=== PATIENT | female | born 1935 | race Caucasian/White ===

== ENCOUNTER 2022-08-26 15:56 | Outpatient (REF) | payer MEDICARE, SELFPAY ==
[2022-08-26 18:18] LABS: Anion Gap 13 (12-20); Blood Urea Nitrogen 23 mg/dL (9-16); Calcium 9.4 mg/dL (8.4-10.2); Carbon Dioxide 24 mmol/L (22-29); Chloride 106 mmol/L (96-108); Estimated Glomerular Filt Rate > 60; Glucose Random 81 mg/dL (60-115); Potassium 3.9 mmol/L (3.3-5.1); Sodium 139 mmol/L (135-145)
[2022-08-26 18:49] LABS: Folate 13.8 ng/mL (> or = 4.0); T4 Thyroxine 7.2 ug/dL (4.5-12.0); Thyroid Stimulating Hormone 2.67 uIU/mL (0.32-4.0); Vitamin B12 376 pg/mL (200-900)
[2022-08-30 15:58] LABS: Vitamin D 25-OH, D2 <4 ng/mL; Vitamin D 25-OH, D3 43 ng/mL; Vitamin D 25-OH, Total 43 ng/mL (30-100)
== END 2022-08-26 15:57 | disposition home or self-care (01) ==
LOC: HO.LAB 15:56
PROVIDERS: PCP Internal Medicine; Visit Provider Psychiatry & Neurology Neurology
DX: G31.84 Mild cognitive impairment of uncertain or unknown etiology (principal); E56.9 Vitamin deficiency, unspecified
CPT/HCPCS: 36415; 80048; 82306; 82607; 82746; 84436; 84443

== ENCOUNTER 2024-06-23 10:49 | Outpatient (REF) | payer MEDICARE, SELFPAY ==
[2024-06-23 11:07] LABS: MANUAL DIFF FLAG NO
[2024-06-23 11:50] LABS: Basophils Percent Auto 0.7 % (0-2); Eosinophils Absolute Auto 0.1 X10*3/uL (0.0-0.4); Eosinophils Percent Auto 1.1 % (0-4); Hematocrit 38.2 % (37.0-47.0); Hemoglobin 12.9 g/dl (12.0-16.0); Imm Gran Abs Auto 0.02 X10*3/uL (0.00-0.03); Imm Gran Pct Auto 0.4 % (0.0-0.4); Lymphocytes Absolute Auto 1.1 X10*3/uL (1.2-4.9); Lymphocytes Percent Auto 19.8 % (20-40); Mean Corpuscular HGB Conc 33.8 g/dl (31.0-35.0); Mean Corpuscular Hemoglobin 31.7 pg (27.0-33.0); Mean Corpuscular Volume 93.9 fL (80.0-98.0); Mean Platelet Volume 10.5 fL (9.4-12.3); Monocytes Absolute Auto 0.6 X10*3/uL (0.1-1.2); Monocytes Percent Auto 10.3 % (2-11); Neutrophils Absolute Auto 3.7 x10*3/uL (2.0-8.3); Neutrophils Percent Auto 67.7 % (45-73); Platelet Count 150 X10*3/uL (160-400); Red Blood Count 4.07 X10*6/uL (4.20-5.50); Red Cell Distribution Width 13.2 % (11.0-16.0); White Blood Count 5.5 X10*3/uL (4.8-10.8)
[2024-06-23 12:03] LABS: Appearance Urine Clear; Color Urine Yellow; Glucose Urine UA Negative (Negative); Leukocyte Esterase Urine Trace (Negative); Nitrite Urine Negative (Negative); UMIC TRIGGER UACC YES; Urine Blood Negative (Negative); Urine Ketones Negative (Negative); Urine Protein Trace mg/dL (Neg-Trace)
[2024-06-23 12:09] LABS: Bacteria Urine None Seen (None Seen); Hyaline Casts Urine 0-2 /LPF (0-2); RBC Urine 0-2 /HPF (0-2); Squamous Epithelial Cell Urine 0-2 /HPF (0-2); WBC Urine 0-5 /HPF (0-5)
--- OUTSIDE RECORDS SUMMARY | 2024-06-23 12:58 | XMS_ITS | Encounter Summary ---
Author Name [facility] [place] [facility] [place] Organization [facility] [place] Address [address] [place] [id number] Care Team Providers Care Mess Attendant Name Role Phone JIM DUTTA Primary Care Provider Unavailabl e Insurance Providers: All historical and current Section Date Range: From patient's date of to the date document was created. This section includes the names of all active insurance providers for the patient. Insurance Provider Type of Coverage Plan Name Start of Policy Coverage End of Policy Coverage Group Number Member ID Insurance Provider's Telephone Number Policy Quiros's Name Patient's Relationship to Policy Quiros [facility] PLAN MEDICARE () [facility] ([facility]) May 26[facility] 2014 [facility] [id number] Kamar CLAUDIO PATIENT [facility] ([facility]) MEDICARE ADVANTAGE [facility] ([facility]) May 26, 2018 [facility] [id number] [phone] Kamar CLAUDIO PATIENT Selected Encounter This section includes the information on record at [place] for the Encounter. Date/Time Encounter Type Encounter Description Reason Provider Source October 07, 2023 10:30 AM OFFICE O/P EST MOD 30 MIN PRIMARY CARE/MEDICINE ICD-10-CM I10 Essential (primary) hypertension JURGEN WIGGINS Encounter Template Text not used by VA Assessments - Encounter Diagnoses This section includes the primary and secondary diagnoses documented for the Encounter. Date/Time Primary/Secondary Diagnosis Diagnosis Name Provider Source October 07, 2023 11:20 AM PRIMARY Essential (primary) hypertension JURGEN WIGGINS October 07, 2023 11:20 AM SECONDARY Orthostatic hypotension JURGEN WIGGINS [facility] Plan of Treatment: Future Appointments (+ 6 months) and Future Tests (+/- 45 days) The Plan of Treatment section includes future care activities for the patient from all [place] treatmentfacilities. This section includes future appointments and future orders which are active, pending or scheduled. Future Appointments This section includes appointments that were scheduled to occur 6 months from the date of the Encounter, up to a maximum of 20 appointments. The data comes from all [place] treatment facilities. Appointment Date/Time Appointment Type Appointme nt Facility Name Mar 02, 2024 01:00 PM [facility] Mar 02, 2024 02:00 PM [facility] [place] [facility] Mar 02, 2024 02:45 PM [place]UL[place] - NONE [place] [facility] Apr 07, 2024 02:30 PM [facility]ICINE [facility] Lab Results: +/- 30 days of the encounter This section includes the Chemistry and Hematology Lab Results on record with [place] for the patient. Radiology Reports and Pathology Reports are provided separately, in subsequent sections. Lab Results This section contains the Chemistry/Hematology Results that were resulted 30 days before or 30 daysafter the date of the Encounter. Date/Time Source Result Type Result - Unit Interpretation Reference Range Comment October 07, 2023 10:09 AM [facility] HEMOGLOBIN A1C PANEL Specimen Type: BLOOD Comment: Values obtained from A1C measurements can vary. For atypical A1C assays, a reported value of 7.0 could actually be between 6.72 and 7.28 if measured by a reference method. A reported value of 9.0 could actually be between 8.73 and 9.27. Ref: http://www.ngs p.org/CAPdata. asp Ordering Provider: JURGEN WIGGINS Report Released Date/Time: September 25, 2023 08:53 AM Reporting Lab: [address] [address] Performing Lab: [address] [address] HEMOGLOBIN A1C 5.5 4.0-5.6 October 07, 2023 10:09 AM [facility] LIPID PANEL FASTING Specimen Type: SERUM No comment entered. Ordering Provider: JURGEN WIGGINS Report Released Date/Time: September 25, 2023 08:53 AM Reporting Lab[facility] [address] [facility] [address] Performing Lab: [place] [facility] [address] [facility] [address] CHOLESTEROL 206 mg/dL H TRIGLYCERIDE 71 mg/dL 0-150 LDL calculated 98 mg/dL 0-129 CHOL/HDL 2.2 HDL CHOLESTEROL 94 mg/dL H 40-60 October 07, 2023 10:09 AM [facility] TSH Specimen Type: SERUM No comment entered. Ordering Provider: JURGEN WIGGINS Report Released Date/Time: September 25, 2023 08:53 AM Reporting Lab: [facility] [address] [facility] [address] [address] TSH 3.85 u[IU]/mL 0.35-5.00 October 07, 2023 10:09 AM [facility] LIVER FUNCTION Specimen Type: SERUM No comment entered. Ordering Provider: JURGEN WIGGINS Report Released Date/Time: September 25, 2023 08:53 AM Reporting Lab: [facility] [address] [address] Performing Lab: [facility] [address] PROTEIN,TOTAL 7.0 g/dL 6.0-8.3 ALBUMIN 4.2 g/dL 3.5-5.0 ALKALINE PHOSPHATASE 95 U/L 40-150 AST 31 U/L 5-34 ALT 20 U/L BILIRUBIN, TOTAL 1.0 mg/dL 0.2-1.2 October 07, 2023 10:09 AM [facility] BASIC METABOLIC PANEL (fasting) Specime n Type: SERUM No comment entered. Ordering Provider: JURGEN WIGGINS Report Released Date/Time: September 25, 2023 08:53 AM Reporting Lab: [facility] [address] [address] Performing Lab: [facility] [address] [facility] [address] UREA NITROGEN 26 mg/dL H 7-25 GLUCOSE 88 mg/dL 65-100 SODIUM 140 mmol/L 135-145 POTASSIUM 4.1 mmol/L 3.5-5.0 CHLORIDE 105 mmol/L 100-110 CO2 23 meq/L 20-30 CREATININE, Serum 1.75 mg/dL H 0.50-1.40 eGFR(CKD-EPI 2020) 28 mL/min L >60 October 07, 2023 10:09 AM [facility] CBC AND DIFF (AUTO) Specimen Type: BLOOD No comment entered. Ordering Provider: JURGEN WIGGINS Report Released Date/Time: September 25, 2023 08:53 AM Reporting Lab: [address] [address] Performing Lab: [address] [address] WBC 5.84 10*3/uL 4.50-11.00 RBC 4.14 10*6/uL 3.93-5.16 HGB 12.9 g/dL 12-15.2 HCT 38.6 36.6-45.6 MCV 93.2 fL 82-99 MCHC 33.4 g/dL 30.8-35.1 PLT 162 10*3/uL 140-360 RDW-CV 13.5 12.0-16.0 [place], Abs 0.50 10*3/uL 0.30-1.10 MCH 31.2 pg 26.2-32.6 Neut % 64.2 43.7-75.8 Lymph % 25.2 14.0-42.3 [place] % 8.6 5.1-13.7 Eos % 1.0 0.4-6.8 Baso % 0.7 0.1-2.0 Neut, Abs 3.75 10*3/uL 2.20-7.60 Lymph, Abs 1.47 10*3/uL 1.00-3.20 Eos, Abs 0.06 10*3/uL 0.03-0.44 Baso, Abs 0.04 10*3/uL 0.01-0.13 Immature Gran % 0.3 0.0-0.7 Immature Gran, Abs 0.02 10*3/uL 0.00-0.06 Vital Signs: All taken on the encounter date This section contains inpatient and outpatient Vital Signs collected on the date of the Encounter. Date/Time Temperature Pulse Blood Pressure Respiratory Rate SP02 Pain Height Weight Body Mass Index Source October 07, 2023 10:41 AM 77 149/92 97 [facility] I[place] Social History: Smoking Status (Most current) and Tobacco Use (All prior to encounter date) This section includes the most current, and the historical, smoking and tobacco- related health factors from the [place] facility where the Encounter took place. Current Smoking Status This section includes the most current smoking, or tobacco-related health factor, from the [place] facility where the Encounter took place. Date/Time Current Smoking Status Comment Facil ity May 28, 2023 09:30 AM [facility] Tobacco Use History This section includes a history of the smoking, or tobacco-related health factors, that were collected on or before the date of the Encounter. The data comes from the [place] facility where the Encounter took place. Date/Time Smoking Status/Tobacco Use Comment F acility Feb 07, 2022 12:30 PM [place]-TOBACCO NEVER USED [facility] Feb 16, 2020 10:00 AM [facility] Dec 25, 2017 09:25 AM LIF[facility]IME NON-TOBACCO USER [facility] Nov 11, 2016 10:26 AM LIFETIME NON-TOBACCO USER [facility] October 12, 2015 01:32 PM LIFETIME NON-TOBACCO USER [facility] Apr 11, 2005 08:33 AM LIFETIME NON-SMOKER [facility] Mar 26, 2004 01:31 PM LIFETIME NON-SMOKER [facility] Feb 15, 2003 08:17 AM LIFETIME NON-SMOKER [facility] Nov 04, 2001 01:51 PM LIFETIME NON-SMOKER [facility] Nov 04, 2001 01:51 PM LIFETIME NON-TOBACCO USER [facility] Advance Directives: All historical and current Section Date Range: From patient's date of to the date document was created. This section includes ALL of a patient's completed or amended [place] Advance and Rescinded Directives. The entries below indicate that a directive exists for the patient, but an actual copy is not included with this document. The data comes from all [facility]. Date Advance Directives Provider Source October 08, 2019 ADVANCE DIRECTIVE SYLVIE TOVAR Apr 07, 2013 ADVANCE DIRECTIVE KEANU HOLLOWAY [place] [facility] Encounter Notes: All associated encounter notes This section contains the clinical notes associated to the Encounter. Date/Time Encounter Note(s) Provider Source October 07, 2023 11:21 AM ADDENDUM: LOCAL TITLE: Addendum STANDARD TITLE: ADDENDUM DATE OF NOTE: OCTOBER 07, 2023@11:21:47 ENTRY DATE: OCTOBER 07, 2023@11:21:48 AUTHOR: JURGEN WIGGINS COSIGNER: URGENCY: STATUS: COMPLETED Please place the ENT consult for bilateral ear fullness and pressure and hold it for my signature. Thank you /es/ JURGEN WIGGINS MD PRIMARY CARE PHYSICIAN Signed: 10/07/2023 11:22 Receipt Acknowledged By: 10/09/2023 15:39 /doron/ BRYAN MOELLER RN- REGISTERED NURSE --- Original Document --- 10/07/23 NOTE: HISTORY OF PRESENT ILLNESS: JOSE CLAUDIO, is a 87 yo FEMALE [place], who presents at the [facility] for c/o vertigo. She is in office with her [facility] August. labs- pending Non- VA providers PCP- Dr Workman cardiology- Dr Sadler Neurology - Dr Guardado Active problems - Computerized Problem List is the source for the followin-HTN 2-Lightheadeness 3-Ear fulness The following VA and Non-VA meds were reconciled with patient: Active Outpatient Medications (including Supplies): Issue Date Status Last Fill Active Outpatient Medications Refills Expiration 1) APIXABAN 5MG TAB Qty: 90 for 90 days ACTIVE Issu:10-08-22 Sig: TAKE ONE-HALF TABLET BY MOUTH Refills: 1 Last:07-31-23 EVERY 12 HOURS FOR PREVENTION OF BLOOD Expr:10-09-23 CLOTS (DOSE REDUCTION) 2) ATORVASTATIN CALCIUM 40MG TAB Qty: 45 ACTIVE Issu:06-24-23 for 90 days Sig: TAKE ONE-HALF TABLET Refills: 2 Last:09-12-23 BY MOUTH AT BEDTIME FOR HIGH Expr:06-24-24 CHOLESTEROL 3) LOSARTAN 50MG TAB Qty: 90 for 90 days ACTIVE (S) Issu:10-03-23 Sig: TAKE ONE TABLET BY MOUTH ONCE Refills: 3 Last:11-05-23 DAILY FOR HIGH BLOOD PRESSURE Expr:10-03-24 4) METOPROLOL SUCCINATE 25MG SA TAB Qty: ACTIVE Issu:05-14-23 90 for 90 days Sig: TAKE ONE TABLET Refills: 2 Last:08-03-23 BY MOUTH ONCE DAILY FOR BLOOD Expr:05-14-24 PRESSURE/HEART Start Date Active Non-VA Medications Refills Expiration 1) Non-VA ASPIRIN 81MG EC TAB SiMG BY ACTIVE MOUTH ONCE DAILY 2) Non-VA CALCIUM CARBONATE 650MG (CA ACTIVE 260MG) TAB SiMG BY MOUTH DAILY 3) Non-VA MULTIVITAMIN/MINERALS CAP/TAB ACTIVE Si TABLET BY MOUTH DAILY 4) Non-VA VITAMIN D3 (CHOLECALCIFEROL) TAB ACTIVE Sig: BY MOUTH 8 Total Medications ALLERGIES: ========= CODEINE, PNEUMOVAX 23 LAB HISTORY: pending PMH: Atrial fibrillation on anticoagulation, TIA, essential hypertension, hypercholesterolemia, osteopenia, rotator cuff tendinitis, iritable bowel syndrome- constipation, colon polyps, hearing loss, SURGICAL HISTORY: Left rotator cuff surgery Lower back surgery left carpal tunnel surgery Apendicitis FAMILY HISTORY: mother- father- SOCIAL HISTORY: with 2 children Smoking denies Drugs denies Alcohol denies HISTORY: PERIOD OF SERVICE - [employer] FROM Nov TO Jul COMBAT SERVICE INDICATED: No REVIEW OF SYSTEMS: No fever, chills, fatigue Positive for bilateral ear fullness; not he had discharge No chest pain shortness of breath or palpitations Positive for lightheadedness on and off No cough or wheezing No abdominal pain nausea or vomiting No dysuria No headaches ; positive for memory loss PHYSICAL EXAMINATION: WD/WN seems to be in nonacute distress at the moment of examination S1-S2 positive, RRR SCOTT, CTA bilateral Abdomen soft nontender to palpation No edema lower extremities AAO x3; ambulates without help Bilateral ear and canalnegative for wax ASSESSMENT/PLAN: 1-HTN-blood pressure mildly elevated today in office but diabetes 138/85 Continue current medications healthy diet and exercise as tolerated 2-Lightheadeness- positive for orthostatics today in the office Laying down blood pressure 146/91 and heart rate 82, sitting blood pressure 154/85 with heart rate 83 and standing 138/85 with heart rate 86 I advised her to drink at least 1.5 L water every day 3-Ear fulness-she will need ENT consultation *-Patient's granddaughter states and follow-up with photography assistant in July had blood work done *-Patient's granddaughter states follow-up with her in May with Dr. Lei for patient's osteoporosis FOLLOW UP: ========= RTC -6 months follow-up for hypertension hyperlipidemia A. fib Today's documentation was made using voice recognition software. This note may contain spelling/grammatical errors secondary to this software. Every effort is made to correct errors, but if mistakes are found they need to be taken in context. UPCOMING APPOINTMENTS: 10/07/2023 10:30 CWM/SO/PACT EIGHT WH No barriers; Patient understands and agrees to current treatment plan. If pt has any questions, concerns, or changes in current health status he/she will call or come in to the VA. Medication Reconciliation: Outpatient: Has the patient been taking medications as documented in the EMLR? YES: The patient has been taking medications as documented in the EMLR. Essential Medication List for Review used to complete this medication reconciliation. INCLUDED IN THIS LIST: Alphabetical list of active outpatient prescriptions dispensed from this [place] (local) and dispensed from another [place] or [place] facility (remote) as well as inpatient orders (local, pending and active), local clinic medications, locally documented non-VA medications, and local prescriptions that have or been discontinued in the past 90 days. - All changes in medications, including all non-VA/Herbal/OTC medications were entered into CPRS. - If there were any medications the patient should no longer take, they were discontinued. - The patient/caregiver was instructed to update this list, discard old lists, and take this list to the next appointment, whether with a VA or non-VA provider. JLV Link Data on this list may not be complete. Please check JLV. Allergies/ADRs (Tool #5) FACILITY ALLERGY/ADR -------- No Remote Allergy/ADR Data available for this patient [facility] CODEINE [facility] PNEUMOVAX 23 Med Recon NoGlossary (Tool #1) INCLUDED IN THIS LIST: Alphabetical list of active outpatient prescriptions dispensed from this [place] (local) and dispensed from another [place] or [place] facility (remote) as well as inpatient orders (local pending and active), local clinic medications, locally documented non-VA medications, and local prescriptions that have or been discontinued in the past 90 days. Non-VA Meds Last Documented On: Aug 06, 2021 NOTE The display of VA prescriptions dispensed from another [place] or [facility] facility (remote) is limited to active outpatient prescription entries matched to National Drug File at the originating site and may not include some items such as investigational drugs, compounds, etc. NOT INCLUDED IN THIS LIST: Medications self-entered by the patient into personal health records (i.e. Me[employer]ty) are NOT included in this list. Non-VA medications documented outside this [place], remote inpatient orders (regardless of status) and remote clinic medications are NOT included in this list. The patient and provider must always discuss medications the patient is taking, regardless of where the medication was dispensed or obtained. OUTPT APIXABAN 5MG TAB (Status = Active) TAKE ONE-HALF TABLET BY MOUTH EVERY 12 HOURS FOR PREVENTION OF BLOOD CLOTS (DOSE REDUCTION) Rx# [id number] Last Released: 07/29/23 Qty/Days Supply: Rx Expiration Date: 10/09/23 Refills Remainin Indication: FOR PREVENTION OF BLOOD CLOTS Non-VA ASPIRIN 81MG EC TAB TAKE ONE TABLET BY MOUTH ONCE DAILY Medication prescribed by Non-VA provider. OUTPT ATORVASTATIN CALCIUM 40MG TAB (Status = Active) TAKE ONE-HALF TABLET BY MOUTH AT BEDTIME FOR HIGH CHOLESTEROL Rx# [id number] Last Released: 09/03/23 Qty/Days Supply: Rx Expiration Date: 06/24/24 Refills Remainin Indication: FOR HIGH CHOLESTEROL Non-VA CALCIUM CARBONATE 650MG (CA 260MG) TAB TAKE ONE TABLET BY MOUTH DAILY OUTPT LOSARTAN 50MG TAB (Status = Discontinued) TAKE ONE TABLET BY MOUTH ONCE DAILY NOTE DIRECTIONS AND NEW TABLET STRENGTH Rx# [id number] Last Released: 08/08/23 Qty/Days Supply: Rx Expiration Date: 11/02/23 Refills Remainin Indication: FOR HIGH BLOOD PRESSURE OUTPT LOSARTAN 50MG TAB (Status = Active/Suspended) TAKE ONE TABLET BY MOUTH ONCE DAILY FOR HIGH BLOOD PRESSURE Rx# [id number] Last Released: Qt Supply: Rx Expiration Date: 10/03/24 Refills Remainin Indication: FOR HIGH BLOOD PRESSURE OUTPT METOPROLOL SUCCINATE 25MG SA TAB (Status = Active) TAKE ONE TABLET BY MOUTH ONCE DAILY FOR BLOOD PRESSURE/HEART Rx# [id number] Last Released: 07/29/23 Qty/Days Supply: Rx Expiration Date: 05/14/24 Refills Remainin Non-VA MULTIVITAMIN/MINERALS CAP/TAB CAP/TAB TAKE ONE TABLET BY MOUTH DAILY Non-VA VITAMIN D3 (CHOLECALCIFEROL) TAB TAKE BY MOUTH Medication prescribed by Non-VA provider. SUPPLIES /doron/ JURGEN WIGGINS MD PRIMARY CARE PHYSICIAN Signed: 10/07/2023 11:21 JURGEN WIGGINS [facility] October 07, 2023 10:41 AM PREVENTIVE MEDICIN E NURSING NOTE: LOCAL TITLE: CLINICAL REMINDERS/NURSING STANDARD TITLE: PREVENTIVE MEDICINE NURSING NOTE DATE OF NOTE: OCTOBER 07, 2023@10:41 ENTRY DATE: OCTOBER 07, 2023@10:42:01 AUTHOR: BILLY DIMAS COSIGNER: URGENCY: STATUS: COMPLETED Suicide Screen: C-SSRS Screening [place] Suicide Severity Rating Scale (C-SSRS) screener 1. Over the past month, have you wished you were or wished you could go to sleep and not wake up? No 2. Over the past month, have you had any actual thoughts of killing yourself? No 3. Over the past month, have you been thinking about how you might do this? Response not required due to responses to other questions. 4. Over the past month, have you had these thoughts and had some intention of acting on them? Response not required due to responses to other questions. 5. Over the past month, have you started to work out or worked out the details of how to kill yourself? Response not required due to responses to other questions. 6. If yes, at any time in the past month did you intend to carry out this plan? Response not required due to responses to other questions. 7. In your lifetime, have you ever done anything, started to do anything, or prepared to do anything to end your life (for example, collected pills, obtained a gun, gave away valuables, went to the roof but didn't jump)? No 8. If YES, was this within the past 3 months? Response not required due to responses to other questions. Falls & Incontinence Screen: Falls Screen: During the past 12 months, did the patient report any falls? 4. No falls within the past year. Incontinence Screen: During the past 12 months, has the patient has any characteristics of incontinence (ability, voiding, leakage, etc.)? No incontinence. Td / Tdap Immunization: The patient declines to receive the recommended dose of Td/Tdap vaccine. Immunization: TD(ADULT) UNSPECIFIED FORMULATION Refusal Reason: PATIENT DECISION Patient refuses all immunization(s) in the Td group Date Documented: 10/07/23 10:42 Sexual Orientation: The patient thinks of their sexual orientation as: Straight or Heterosexual RHS Screen: RHS Screen Environmental Check Upon inquiry, the individual reports that the environment is safe to proceed. Informed Consent to Screen and Document The individual consents to proceed with screening. The individual consents to documentation of responses. PRIMARY SCREEN: In the past 12 months, how often did a current or former intimate partner (e.g., boyfriend, girlfriend, , , sexual partner): 1. Scream or curse at you Never 2. Insult or talk down to you Never 3. Threaten you with harm Never 4. Physically hurt you Never 5. Force or pressure you to have sexual contact against your will, or when you were unable to say no Never ?? The HITS tool (items 1-4 above) is [place] copyright protected by Woody Crawley MD, and the user has full rights to use it throughout the [place] system. PRIMARY SCREEN RESULT: The Primary Screen is NEGATIVE. The individual answered never to all forms of IPV above (i.e., answered never to all 5 items) The individual accepts education and/or resources: No EDUCATION: The individual indicated readiness to learn. Education offered during this session as noted above. The individual indicated understanding by asking relevant questions and making appropriate comments. No barriers to learning were observed or identified. /doron/ BILLY DIMAS LPN Licensed Practical Nurse Signed: 10/07/2023 10:43 BILLY DIMAS October 07, 2023 09:57 AM PHYSICIAN NOTE: LOCAL TITLE: MD NOTE STANDARD TITLE: PHYSICIAN NOTE DATE OF NOTE: OCTOBER 07, 2023@09:57 ENTRY DATE: OCTOBER 07, 2023@09:57:25 AUTHOR: JURGEN WIGGINS COSIGNER: URGENCY: STATUS: COMPLETED NOTE Has ADDENDA HISTORY OF PRESENT ILLNESS: JOSE CLAUDIO, is a 87 yo FEMALE , who presents at the [facility] for c/o vertigo. She is in office with her [facility] August. labs- pending Non- VA providers PCP- Dr Workman cardiology- Dr Sadler Neurology - Dr Guardado Active problems - Computerized Problem List is the source for the followin-HTN 2-Lightheadeness 3-Ear fulness The following VA and Non-VA meds were reconciled with patient: Active Outpatient Medications (including Supplies): Issue Date Status Last Fill Active Outpatient Medications Refills Expiration 1) APIXABAN 5MG TAB Qty: 90 for 90 days ACTIVE Issu:10-08-22 Sig: TAKE ONE-HALF TABLET BY MOUTH Refills: 1 Last:07-31-23 EVERY 12 HOURS FOR PREVENTION OF BLOOD Expr:10-09-23 CLOTS (DOSE REDUCTION) 2) ATORVASTATIN CALCIUM 40MG TAB Qty: 45 ACTIVE Issu:06-24-23 for 90 days Sig: TAKE ONE-HALF TABLET Refills: 2 Last:09-12-23 BY MOUTH AT BEDTIME FOR HIGH Expr:06-24-24 CHOLESTEROL 3) LOSARTAN 50MG TAB Qty: 90 for 90 days ACTIVE (S) Issu:10-03-23 Sig: TAKE ONE TABLET BY MOUTH ONCE Refills: 3 Last:11-05-23 DAILY FOR HIGH BLOOD PRESSURE Expr:10-03-24 4) METOPROLOL SUCCINATE 25MG SA TAB Qty: ACTIVE Issu:05-14-23 90 for 90 days Sig: TAKE ONE TABLET Refills: 2 Last:08-03-23 BY MOUTH ONCE DAILY FOR BLOOD Expr:05-14-24 PRESSURE/HEART Start Date Active Non-VA Medications Refills Expiration 1) Non-VA ASPIRIN 81MG EC TAB SiMG BY ACTIVE MOUTH ONCE DAILY 2) Non-VA CALCIUM CARBONATE 650MG (CA ACTIVE 260MG) TAB SiMG BY MOUTH DAILY 3) Non-VA MULTIVITAMIN/MINERALS CAP/TAB ACTIVE Si TABLET BY MOUTH DAILY 4) Non-VA VITAMIN D3 (CHOLECALCIFEROL) TAB ACTIVE Sig: BY MOUTH 8 Total Medications ALLERGIES: ========= CODEINE, PNEUMOVAX 23 LAB HISTORY: pending PMH: Atrial fibrillation on anticoagulation, TIA, essential hypertension, hypercholesterolemia, osteopenia, rotator cuff tendinitis, iritable bowel syndrome- constipation, colon polyps, hearing loss, SURGICAL HISTORY: Left rotator cuff surgery Lower back surgery left carpal tunnel surgery Apendicitis FAMILY HISTORY: mother- father- SOCIAL HISTORY: with 2 children Smoking denies Drugs denies Alcohol denies HISTORY: PERIOD OF SERVICE - [employer] FROM Nov [place] Jul COMBAT SERVICE INDICATED: No REVIEW OF SYSTEMS: No fever, chills, fatigue Positive for bilateral ear fullness; not he had discharge No chest pain shortness of breath or palpitations Positive for lightheadedness on and off No cough or wheezing No abdominal pain nausea or vomiting No dysuria No headaches ; positive for memory loss PHYSICAL EXAMINATION: WD/WN [place] seems to be in nonacute distress at the moment of examination S1-S2 positive, RRR SCOTT, CTA bilateral Abdomen soft nontender to palpation No edema lower extremities AAO x3; ambulates without help Bilateral ear and canalnegative for wax ASSESSMENT/PLAN: 1-HTN-blood pressure mildly elevated today in office but diabetes 138/85 Continue current medications healthy diet and exercise as tolerated 2-Lightheadeness- positive for orthostatics today in the office Laying down blood pressure 146/91 and heart rate 82, sitting blood pressure 154/85 with heart rate 83 and standing 138/85 with heart rate 86 I advised her to drink at least 1.5 L water every day 3-Ear fulness-she will need ENT consultation *-Patient's granddaughter states and follow-up with photography assistant in July had blood work done *-Patient's granddaughter states follow-up with her in May with Dr. Lei for patient's osteoporosis FOLLOW UP: ========= RTC -6 months follow-up for hypertension hyperlipidemia A. fib Today's documentation was made using voice recognition software. This note may contain spelling/grammatical errors secondary to this software. Every effort is made to correct errors, but if mistakes are found they need to be taken in context. UPCOMING APPOINTMENTS: 10/07/2023 10:30 CWM/SO/PACT EIGHT WH No barriers; Patient understands and agrees to current treatment plan. If pt has any questions, concerns, or changes in current health status he/she will call or [facility] Medication Reconciliation: Outpatient: Has the patient been taking medications as documented in the EMLR? YES: The patient has been taking medications as documented in the EMLR. Essential Medication List for Review used to complete this medication reconciliation. INCLUDED IN THIS LIST: Alphabetical list of active outpatient prescriptions dispensed from this [place] (local) and dispensed from another [facility] or [facility] facility (remote) as well as inpatient orders (local, pending and active), local clinic medications, locally documented non-VA medications, and local prescriptions that have or been discontinued in the past 90 days. - All changes in medications, including all non-VA/Herbal/OTC medications were entered into CPRS. - If there were any medications the patient should no longer take, they were discontinued. - The patient/caregiver was instructed to update this list, discard old lists, and take this list to the next appointment, whether with a VA or non-VA provider. JLV Link Data on this list may not be complete. Please check JLMicrostim. Allergies/ADRs (Tool #5) FACILITY ALLERGY/ADR -------- No Remote Allergy/ADR Data available for this patient [facility] CODEINE [facility] PNEUMOVAX 23 Med Recon NoGlossary (Tool #1) INCLUDED IN THIS LIST: Alphabetical list of active outpatient prescriptions dispensed from this [place] (local) and dispensed from another [facility] or [facility] facility (remote) as well as inpatient orders (local pending and active), local clinic medications, locally documented non-VA medications, and local prescriptions that have or been discontinued in the past 90 days. Non-VA Meds Last Documented On: Aug 06, 2021 NOTE The display of VA prescriptions dispensed from another [place] or [facility] facility (remote) is limited to active outpatient prescription entries matched to National Drug File at the originating site and may not include some items such as investigational drugs, compounds, etc. NOT INCLUDED IN THIS LIST: Medications self-entered by the patient into personal health records (i.e. Me[employer]ty) are NOT included in this list. Non-VA medications documented outside this [place], remote inpatient orders (regardless of status) and remote clinic medications are NOT included in this list. The patient and provider must always discuss medications the patient is taking, regardless of where the medication was dispensed or obtained. OUTPT APIXABAN 5MG TAB (Status = Active) TAKE ONE-HALF TABLET BY MOUTH EVERY 12 HOURS FOR PREVENTION OF BLOOD CLOTS (DOSE REDUCTION) Rx# [id number] Last Released: 07/29/23 Qty/Days Supply: Rx Expiration Date: 10/09/23 Refills Remainin Indication: FOR PREVENTION OF BLOOD CLOTS Non-VA ASPIRIN 81MG EC TAB TAKE ONE TABLET BY MOUTH ONCE DAILY Medication prescribed by Non-VA provider. OUTPT ATORVASTATIN CALCIUM 40MG TAB (Status = Active) TAKE ONE-HALF TABLET BY MOUTH AT BEDTIME FOR HIGH CHOLESTEROL Rx# [id number] Last Released: 09/03/23 Qty/Days Supply: Rx Expiration Date: 06/24/24 Refills Remainin Indication: FOR HIGH CHOLESTEROL Non-VA CALCIUM CARBONATE 650MG (CA 260MG) TAB TAKE ONE TABLET BY MOUTH DAILY OUTPT LOSARTAN 50MG TAB (Status = Discontinued) TAKE ONE TABLET BY MOUTH ONCE DAILY NOTE DIRECTIONS AND NEW TABLET STRENGTH Rx# [id number] Last Released: 08/08/23 Qty/Days Supply: Rx Expiration Date: 11/02/23 Refills Remainin Indication: FOR HIGH BLOOD PRESSURE OUTPT LOSARTAN 50MG TAB (Status = Active/Suspended) TAKE ONE TABLET BY MOUTH ONCE DAILY FOR HIGH BLOOD PRESSURE Rx# [id number] Last Released: Supply: Rx Expiration Date: 10/03/24 Refills Remainin Indication: FOR HIGH BLOOD PRESSURE OUTPT METOPROLOL SUCCINATE 25MG SA TAB (Status = Active) TAKE ONE TABLET BY MOUTH ONCE DAILY FOR BLOOD PRESSURE/HEART Rx# [id number] Last Released: 07/29/23 Qty/ Supply: Rx Expiration Date: 05/14/24 Refills Remainin Non-VA MULTIVITAMIN/MINERALS CAP/TAB CAP/TAB TAKE ONE TABLET BY MOUTH DAILY Non-VA VITAMIN D3 (CHOLECALCIFEROL) TAB TAKE BY MOUTH Medication prescribed by Non-VA provider. SUPPLIES /cielo WIGGINS MD PRIMARY CARE PHYSICIAN Signed: 10/07/2023 11:21 10/07/2023 ADDENDUM STATUS: COMPLETED Please place the ENT consult for bilateral ear fullness and pressure and hold it for my signature. Thank you /cielo WIGGINS MD PRIMARY CARE PHYSICIAN Signed: 10/07/2023 11:22 Receipt Acknowledged By: 10/09/2023 15:39 /BRYAN Grant RN-BC REGISTERED NURSE 10/09/2023 ADDENDUM STATUS: COMPLETED Placed CC ENT consult as requested by PCP above and held for provider review. /BRYAN Grant RN-BC REGISTERED NURSE Signed: 10/09/2023 15:44 JURGEN WIGGINSFIELD
--- OUTSIDE RECORDS SUMMARY | 2024-06-23 12:58 | XMS_ITS | Data Portability ---
Author Organization [place] [facility] PAIN OFF[facility] Address [address],[facility] [address] [place] [address] Care Team Providers Care Binding Nicker Name Role Phone ILAN RODRIGUEZ Primary Care Provider Assessment Encounter Date Assessment Date Assessment LastModified by Organization Details LastModified Time 02/23/2016 02/23/2016 Luna Ch is a 80 year old woman with complaints of neck pain radiating into both upper extremities with burning pain. On exam, she has pain on flexion with positive spurling's sign to the left. MRI Cervical spine shows C5-C6: Osteophyte disc complex deforms the ventral aspect of the thecal sac without encroachment upon the cord. Extension of disc and/or osteophyte posterior laterally with additional at least mild facet hypertrophy. Moderate bilateral foraminal stenosis, right greater than left. C6-C7: Mild deformation of thecal sac by osteophyte disc complex without central stenosis. Mild foraminal stenosis, right greater than left, at least in part related to fluid bright signal intimately contacting right facet joint, possibly synovial cyst formation. I recommend a trial of cervical epidural steroid injection under fluoroscopic guidance. The risks and benefits of the procedure were discussed in detail. She wishes to proceed. An appointment has been made and she needs a seasonal delivery driver on the day of the procedure. I have given her a prescription for ativan to be taken pre procedure. [email or web address] Not available 03/20/2016 12:52:29 03/20/2016 03/20/2016 Luna Ch is a 80 year old woman with complaints of neck pain radiating into both upper extremities with burning pain. On exam, she has pain on flexion with positive spurling's sign to the left. MRI Cervical spine shows C5-C6: Osteophyte disc complex deforms the ventral aspect of the thecal sac without encroachment upon the cord. Extension of disc and/or osteophyte posterior laterally with additional at least mild facet hypertrophy. Moderate bilateral foraminal stenosis, right greater than left. C6-C7: Mild deformation of thecal sac by osteophyte disc complex without central stenosis. Mild foraminal stenosis, right greater than left, at least in part related to fluid bright signal intimately contacting right facet joint, possibly synovial cyst formation. She is here for a trial of cervical epidural steroid injection under fluoroscopic guidance. The risks and benefits of the procedure were discussed in detail. She wishes to proceed. She needs to follow up in four weeks tmanikantan Not available 03/20/2016 14:47:52 04/22/2016 04/22/2016 Luna Ch is a 80 year old woman with complaints of neck pain radiating into both upper extremities with burning pain. She is here for a follow up after a trial of cervical epidural steroid injection under fluoroscopic guidance. She reports good ongoing pain benefit. She has pain in her shoulders , right is greater than left. On exam, she has pain on flexion . Improved range of motion of her cervical Spine. I have advised to continue a home exercise program. She can stop PT for now. She can follow up for a repeat injection as needed. tmanikantan Not available 04/22/2016 16:02:17 07/03/2016 07/03/2016 Luna Ch is a 80 year old woman with complaints of neck pain radiating into both upper extremities with burning pain. On exam, she has pain on flexion with positive spurling's sign to the left. MRI Cervical spine shows C5-C6: Osteophyte disc complex deforms the ventral aspect of the thecal sac without encroachment upon the cord. Extension of disc and/or osteophyte posterior laterally with additional at least mild facet hypertrophy. Moderate bilateral foraminal stenosis, right greater than left. C6-C7: Mild deformation of thecal sac by osteophyte disc complex without central stenosis. Mild foraminal stenosis, right greater than left, at least in part related to fluid bright signal intimately contacting right facet joint, possibly synovial cyst formation. She is here for a repeat cervical epidural steroid injection under fluoroscopic guidance. The risks and benefits of the procedure were discussed in detail. She wishes to proceed. She is complaining of pain in right shoulder. I recommend a right shoulder steroid injection under ultrasound guidance. She needs to follow up in four weeks tmanikantan Not available 07/03/2016 14:24:08 11/19/2016 11/19/2016 Luna Ch is a 81 year old woman with complaints of neck pain radiating into both upper extremities with burning pain. On exam, she has pain on flexion with positive spurling's sign to the left. MRI Cervical spine shows C5-C6: Osteophyte disc complex deforms the ventral aspect of the thecal sac without encroachment upon the cord. Extension of disc and/or osteophyte posterior laterally with additional at least mild facet hypertrophy. Moderate bilateral foraminal stenosis, right greater than left. C6-C7: Mild deformation of thecal sac by osteophyte disc complex without central stenosis. Mild foraminal stenosis, right greater than left, at least in part related to fluid bright signal intimately contacting right facet joint, possibly synovial cyst formation. She is here for a repeat cervical epidural steroid injection under fluoroscopic guidance. The risks and benefits of the procedure were discussed in detail. She wishes to proceed. She can follow up as needed. She has recently started on gabapentin and is feeling better. tmanikantan Not available 11/19/2016 13:08:47 Plan of Treatment Reminders Order Date Submit Date Provider Last Modified By Organization Details Last Modified Time Details Appointments None record ed. Lab None record ed. Referral None record ed. Procedures None record ed. Surgeries None record ed. Imaging None record ed. Medication Orders None record ed. Patient TargetsNo targets recorded. Patient Instructions Encounter Date Encounter Id Patient Instructions Last Modified By Organization Details Last Modified Time 02/23/2016 [id number] I have advised to continue witha home exercise program as tolerated. [email or web address] Not available 03/19/2016 20:50:19 03/20/2016 [id number] I have advised her to continue with a home exercise program as tolerated. tmanikantan Not available 03/20/2016 14:48:02 04/22/2016 [id number] I have advised her to continue with a home exercise program as tolerated. tmanikantan Not available 04/22/2016 15:59:53 07/03/2016 [id number] I have advised her to continue with a home exercise program as tolerated. tmanikantan Not available 07/03/2016 13:58:28 11/19/2016 [id number] I have advised her to continue with a home exercise program as tolerated. tmanikantan Not available 11/19/2016 13:02:45 Reason for Referral None Reported. Procedures Surgical History Date Name Laterality Status Provider Name and Address Organization Details Recorded Time 11/20/19 17 Cervical Epidural Steroid injection under fluroscopic guidance completed Stephen Dailey MD [address] , [address], [place], [address], [place] [facility] 11/19/2016 13:07:38 07/03/19 17 Cervical Epidural Steroid injection under fluroscopic guidance completed Stephen Dailey MD [address] , [address], [place], [address], [place] [facility] 07/03/2016 13:59:29 03/20/20 16 Cervical Epidural Steroid injection under fluroscopic guidance completed Stephen Dailey MD [address] , [address], [place], [address], [place] [facility] 03/20/2016 14:44:01 Shoulder joint surgery completed Floridalma Carvajal [place] [facility] 02/23/2016 10:23:03 Appendectomy completed Floridalma Carvajal [place] [facility] 02/23/2016 10:23:33 Carpal tunnel surgery completed Floridalma Carvajal [place] [facility] 02/23/2016 10:24:37 Imaging Results None recorded. Procedure Notes None recorded. Medical Equipment None Reported. Allergies Allergen ID Allergen Name Allergen Category Reaction Reaction Severity Criticality Documentation Date Start Date Code Code System Note Provider Name and Address Organization Details Recorded Time 93502 tramadol medicatio n headache nausea Not available Not available Not available 02/23/2016 38347 RxNorm Floridalma carpio, [place] [facility] 6 10:13:42 Medications Name Sig Start Date Stop Date Status Note LastModified by Organization Details LastModified Time hydrocodone 5 mg-acetamino phen 325 mg tablet 02/22 completed Not Available Not Available Not Available tramadol 50 mg tablet 02/22 completed Not Available Not Available Not Available lorazepam 0.5 mg tablet 02/22 completed Not Available Not Available Not Available lorazepam 2 mg tablet 11/19 completed Not Available Not Available Not Available meclizine 25 mg tablet 02/22 completed Not Available Not Available Not Available omeprazole 20 mg capsule,donnell yed release Take 1 capsule every day by oral route. active Not Available Not Available No t Available gabapentin 100 mg capsule 1 tab twice daily active Not Available Not Available No t Available oxycodone 5 mg tablet 02/22 completed Not Available Not Available Not Available atorvastatin 20 mg active Not Available Not Available Not Available Multi Vitamin active Not Available Not Available Not Available Vitals Date Recorded Heart rate Oxygen saturation Oxygen saturation in Arterial blood by Pulse oximetry Body weight Body height Body mass index (BMI) Systolic blood pressure Diastolic blood pressure Provider Name and Address Organization Details Last Updated DateTime 6 72 /min 98 % 98 % 20743.2 7 g 162.56 cm 20.9 kg/m2 177 mm[Hg] 95 mm[Hg] Floridalma Carvajal [place] [facility] 6 10:10:30 Date Recorded Body height Oxygen saturation Oxygen saturation in Arterial blood by Pulse oximetry Heart rate Systolic blood pressure Diastolic blood pressure Provider Name and Address Organization Details Last Updated DateTime 6 162.56 cm 98 % 98 % 75 /min 158 mm[Hg] 83 mm[Hg] Floridalma Carvajal [place] [facility] 6 12:59:29 Date Recorded Body height Heart rate Oxygen saturation Oxygen saturation in Arterial blood by Pulse oximetry Systolic blood pressure Diastolic blood pressure Provider Name and Address Organization Details Last Updated DateTime 6 162.56 cm 86 /min 99 % 99 % 161 mm[Hg] 73 mm[Hg] Floridalma Carvajal [place] [facility] 6 13:42:22 Date Recorded Body height Heart rate Oxygen saturation Oxygen saturation in Arterial blood by Pulse oximetry Body weight Body mass index (BMI) Systolic blood pressure Diastolic blood pressure Provider Name and Address Organization Details Last Updated DateTime 7 162.56 cm 72 /min 99 % 99 % 14574.2 7 g 20.9 kg/m2 168 mm[Hg] 72 mm[Hg] Floirdalma Carvajal [place] [facility] 7 11:35:37 Date Recorded Body height Heart rate Oxygen saturation Oxygen saturation in Arterial blood by Pulse oximetry Systolic blood pressure Diastolic blood pressure Provider Name and Address Organization Details Last Updated DateTime 7 162.56 cm 73 /min 99 % 99 % 163 mm[Hg] 75 mm[Hg] Floridalma Carvajal [place] [facility] 09:01:00 Social History Question Answer Notes LastModified by Organizat ion Details LastModified Time Tobacco Smoking Status Never Smoker Not Available [facility] 03/10/2020 03:16:11 What Is Your Level Of Alcohol Consumption? Occasional [id number] Information not available 03/10/2020 Which Illicit Or Recreational Drugs Have You Used? None [id number] Information not available 03/10/2020 Education 2 Year College [email or web address] Informatio n not available 02/23/2016 What Is Your Occupation? [employer] [id number] Information not available 03/10/2020 Marital Status [email or web address] Informatio n not available 02/23/2016 Sex: Unknown Functional Status None recorded. Mental Status None recorded. Family History Nothing Reported. Medical History Condition Response Hyperlipidemia Y Depression Y Kidney Disease N GERD/Reflux Y Gynecological HistoryNo gynecological history recorded. Obstetrics History GPAL:G 0 P 0 0 0 0 Past Encounters Encounter ID Performer Location Encounter Start Date Encounter Closed Date Diagnosis/Indication Diagnosis SNOMED-CT Code Diagnosis ICD10 Code Diagnosis Note [id number] Stephen Dailey MD PAIN OFFICE [address] [place] [address] 02/23/2016 09:40:15 03/19/2016 20:51:42 Degeneration of cervical intervertebral disc 75678495 M50.30 Cervical radiculopathy 14387849 M54.12 Spinal júnior nosis in cervical region 44574868 M48.02 [id number] Stephen Dailey MD PAIN OFFICE [address] [place] [address] 03/20/2016 12:52:21 03/20/2016 15:59:37 Degeneration of cervical intervertebral disc 28023977 M50.30 Cervical radiculopathy 37064832 M54.12 Spinal júnior nosis in cervical region 81386319 M48.02 [id number] Stephen Dailey MD PAIN OFFICE [address] [place] [address] 04/22/2016 13:26:44 04/23/2016 11:20:14 Cervical radiculopathy 14399354 M54.12 Spinal júnior nosis in cervical region 76548468 M48.02 Degenerati on of cervical intervertebral disc 87000144 M50.30 [id number] Stephen Dailey MD PAIN OFFICE [address] [place] [address] 07/03/2016 11:14:44 07/03/2016 15:03:24 Degeneration of cervical intervertebral disc 80338250 M50.30 Cervical radiculopathy 78616395 M54.12 Spinal júnior nosis in cervical region 76524502 M48.02 [id number] Stephen Dailey MD [facility] [address] [place] [address] 11/19/2016 08:58:33 11/19/2016 16:03:19 Degeneration of cervical intervertebral disc 46784279 M50.30 Cervical radiculopathy 32382026 M54.12 Spinal júnior nosis in cervical region 52747285 M48.02 Health Concerns Section Related Observation LastModified by Organization Detai ls LastModified Time None Recorded Concern Status LastModified by Organization Details LastModified Time None Recorded Advance Directives Directive None Recorded Payers Encounter Date Sequence Insurance Name Policy Number Policy Quiros Covered Member ID Quiros Member ID Guarantor Name 02/23/2016 1 [facility] - MEDICARE PREFERRED (MEDICARE REPLACEMENT HMO) [employer] Luna Ch [id number] 1 Luna Ch 03/20/2016 1 [facility] - MEDICARE PREFERRED (MEDICARE REPLACEMENT HMO) [facility] [id number] Luna Ch 04/22/2016 1 [facility] - MEDICARE PREFERRED (MEDICARE REPLACEMENT HMO) [employer] Luna Ch [id number] Luna Ch 07/03/2016 1 [facility] - MEDICARE PREFERRED (MEDICARE REPLACEMENT HMO) [employer] Luna Ch [id number] Luna Ch 11/19/2016 1 [facility] - MEDICARE PREFERRED (MEDICARE REPLACEMENT HMO) [employer] Luna Ch [id number] Luna Ch Notes Date Note Type Note Provider Name and Address Organization Details Recorded Time 02/23/2016 text/html Pain Management C-spineReported bypatient.Location: Luna Ch is a 80 year old woman with complaints of neck pain radiating into both shoulders . The pain started spontaneously in 2011 and is becoming greater Quality:throbbing;n umbess;burning;ilana p;tingling; She describes the pain as a burning pain in both arms. She is right handed . She states activity worsens the pain and her arms feel weak. The pain has been greater since rolling up a hose with water in her garden. She reports torn rotator cuff muscles in both shoulders . She is S/P surgery in left shoulder. Severity:worsening; interference with sleep;interference with work Duration:constant Onset/Timing:gradua l onset; chronic; Recent exacerbation. Alleviating Factors:nothing helps; Application of biofreeze and cold water helps a little Aggravating Factors:movement/po sitioning Associated Symptoms:no bladder compromise; no bowel compromise;weakness Radiation Right:entire extremity Radiation Left:entire extremity Work Related:no ADL (Activities of Daily Living):walking; sweeping; mopping Prior Imaging:MRI Prior EMG:none Previous Surgerynone Previous Injections:none Previous PT:did not help Previous palliative care nurse:noneNotes:She states she does not tolerate opioid medication as they cause nausea . She cannot take NSAIDs due to acid reflux. Stephen Dailey MD [address] [place] [address], [place], [address], [facility] 03/28/2016 13:24:48 03/20/2016 text/html She is here for a trial of cervical epidural steroid injection under fluoroscopic guidance. She has taken ativan pre procedure. Stephen Dailey MD [address] , [address], [place], [address], [facility] 03/27/2016 09:35:49 04/22/2016 text/html She is here for a follow up after a trial of cervical epidural steroid injection under fluoroscopic guidance. She reports good pain benefit which is ongoing. She states the pain relief started 2 weeks after the injection. She states she has resolution of the burning pain in her upper extremities. She still has pain in her shoulders. She is able to abduct her arms. She had a trial of physical therapy and fels PT aggravates her pain at times Stephen Dailey MD [address] , [address], [place], [address], [facility] - [facility] 05/03/2016 12:08:41 07/03/2016 text/html She is here for a repeat cervical epidural steroid injection under fluoroscopic guidance. She has taken ativan pre procedure. Stephen Dailey MD [address] , [address], [place], [address], [facility] - [facility] 07/09/2016 09:58:04 11/19/2016 text/html She is here for a repeat cervical epidural steroid injection under fluoroscopic guidance. She has taken ativan pre procedure. Stephen Dailey MD [address] , [address], [place], [address], [facility] - [facility] 11/27/2016 08:31:17 OBGyn Episode No OBEpisode recorded.
--- OUTSIDE RECORDS SUMMARY | 2024-06-23 12:58 | XMS_ITS ---
Author Name [facility] Organization [facility] [place] Address [address] [place] [address] Care Team Providers Care Commercial Collections Driver Name Role Phone JIM DUTTA Primary Care [...] Quiros's Name Patient's Relationship to Policy Quiros [facility] HEALTH PLAN MEDICARE (M) [facility] ([facility]) May 26, 2014 [facility] [id number] [phone] Kamar CLAUDIO PATIENT [facility] ([facility]) MEDICARE ADVANTAGE [facility] ([facility]) May 26, 2018 [facility] [id number] Kamar CLAUDIO PATIENT Selected Encounter This section includes the information on record at ID for the Encounter. Date/Time Encounter Type Encounter Description Reason Pro vider Source Jun 23, 2023 08:30 PM Outpatient Encounter ADMIN PAT ACTIVTIES (MASNONCT) IHE Encounter Template Text not used by ID Plan of Treatment: Future Appointments (+ 6 months) and Future Tests (+/- 45 days) The Plan of Treatment section includes future care activities for the patient from all VA treatmentfacilities. This section includes future appointments and future orders which are active, pending or scheduled. Future Appointments This section includes appointments that were scheduled to occur 6 months from the date of the Encounter, up to a maximum of 20 appointments. The data comes from all ID treatment facilities. Appointment Date/Time Appointment Type Appointme nt Facility Name October 07, 2023 10:30 AM AMBULATORY - MEDICINE [facility] Lab Results: +/- 30 days of the encounter This section includes the Chemistry and Hematology Lab Results on record with ID for the patient. Radiology Reports and Pathology Reports are provided separately, in subsequent sections. Lab Results This section contains the Chemistry/Hematology Results that were resulted 30 days before or 30 daysafter the date of the Encounter. Date/Time Source Result Type Result - Unit Interpretation Reference Range Comment May 28, 2023 09:07 AM [facility] LIPID PANEL FASTING Specimen Type: SERUM No comment entered. Ordering Provider: JURGEN WIGGINS Report Released Date/Time: May 15, 2023 10:16 AM Reporting Lab: [address] [address] Performing Lab: [address] [address] CHOLESTEROL 179 mg/dL TRIGLYCERIDE 57 mg/dL 0-150 LDL calculated 94 mg/dL 0-129 CHOL/HDL 2.4 HDL CHOLESTEROL 74 mg/dL H 40-60 May 28, 2023 09:07 AM [facility] LIVER FUNCTION Specimen Type: SERUM No comment entered. Ordering Provider: JURGEN WIGGINS Report Released Date/Time: May 15, 2023 10:16 AM Reporting Lab: [address] [address] Performing Lab: [address] [address] PROTEIN,TOTAL 6.8 g/dL 6.0-8.3 ALBUMIN 4.1 g/dL 3.5-5.0 ALKALINE PHOSPHATASE 108 U/L 40-150 AST 30 U/L 5-34 ALT 23 U/L BILIRUBIN, TOTAL 0.7 mg/dL 0.2-1.2 May 28, 2023 09:07 AM [facility] BASIC METABOLIC PANEL (fasting) Specime n Type: SERUM No comment entered. Ordering Provider: JURGEN WIGGINS Report Released Date/Time: May 15, 2023 10:16 AM Reporting Lab: [facility] [address] [facility] [address] Performing Lab: [address] [address] UREA NITROGEN 31 mg/dL H 7-25 GLUCOSE 94 mg/dL 65-100 SODIUM 139 mmol/L 135-145 POTASSIUM 4.0 mmol/L 3.5-5.0 CHLORIDE 106 mmol/L 100-110 CO2 23 meq/L 20-30 CREATININE, Serum 1.51 mg/dL H 0.50-1.40 eGFR(CKD-EPI 2020) 33 mL/min L >60 May 28, 2023 09:07 AM [facility] [place] CBC Specimen Type: BLOOD No comment entered. Ordering Provider: JURGEN WIGGINS Report Released Date/Time: May 15, 2023 10:16 AM Reporting Lab: [address] [address] Performing Lab: [address] [address] WBC 4.79 10*3/uL 4.50-11.00 RBC 4.00 10*6/uL 3.93-5.16 HGB 12.5 g/dL 12-15.2 HCT 38.1 36.6-45.6 MCV 95.3 fL 82-99 MCHC 32.8 g/dL 30.8-35.1 PLT 161 10*3/uL 140-360 RDW-CV 13.2 12.0-16.0 MCH 31.3 pg 26.2-32.6 Social History: Smoking Status (Most current) and Tobacco Use (All prior to encounter date) This section includes the most current, and the historical, smoking and tobacco- related health factors from the ID facility where the Encounter took place. Current Smoking Status This section includes the most current smoking, or tobacco-related health factor, from the ID facility where the Encounter took place. Date/Time Current Smoking Status Comment Facil ity Mar 08, 2021 01:51 PM VA-TOBACCO NEVER USED [facility] Tobacco Use History This section includes a history of the smoking, or tobacco-related health factors, that were collected on or before the date of the Encounter. The data comes from the ID facility where the Encounter took place. Date/Time Smoking Status/Tobacco Use Comment F acility Mar 10, 2019 03:59 PM VA-TOBACCO NEVER USED [facility] Advance Directives: All historical and current Section Date Range: From patient's date of to the date document was created. This section includes ALL of a patient's completed or amended [place] Advance and Rescinded Directives. The entries below indicate that a directive exists for the patient, but an actual copy is not included with this document. The data comes from all ID facilities. Date Advance Directives Provider Source October 08, 2019 ADVANCE DIRECTIVE CAROLSYLVIE CANTRELLOLMANAnnelise Apr 07, 2013 ADVANCE DIRECTIVE KEANU HOLLOWAY [facility] Encounter Notes: All associated encounter notes This section contains the clinical notes associated to the Encounter. Date/Time Encounter Note(s) Provider Source Jun 23, 2023 08:30 PM PHARMACY NOTE: LOCAL TITLE: PHARMACY CUSTOMER CARE MEDICATION RENEWAL STANDARD TITLE: PHARMACY NOTE DATE OF NOTE: JUN 23, 2023@20:30 ENTRY DATE: JUN 23, 2023@20:30:58 AUTHOR: JOHNNY BASILIO EXP COSIGNER: URGENCY: STATUS: COMPLETED Date: May Division: [place] Pt referred by Pharmacy Call Center for medication renewal: Non-controlled/maintenanc e medication Medications requested: [id number] ATORVASTATIN CALCIUM 40MG TAB Defer to primary care provider To be mailed . Please review and renew if appropriate. *This note was generated by [facility]/[place] Pharmacy Customer Care. If you have any questions or need assistance, do not contact this author. Please refer all questions to your local, on-site pharmacy departments. /doron/ JOHNNY BASILIO CPhT Requisition [place], [place]/Pharmacy Customer Care Signed: 06/23/2023 20:31 Receipt Acknowledged By: 06/29/2023 10:27 /es/ SHAMEKA MOELLERN RN-BC REGISTERED NURSE 06/24/2023 15:14 /es/ JURGEN WIGGINS MD PRIMARY CARE PHYSICIAN JOHNNY BASILIO [facility]
--- OUTSIDE RECORDS SUMMARY | 2024-06-23 12:59 | XMS_ITS | Encounter Summary ---
Author Organization [facility], Address [address] [place] [address] Phone Care Team Providers Care Log Peeler Name Role Phone Yan Batista Primary Care Provider [phone] Encounter Details Date Type Department Care Team (Late st Contact Info) Description 05/21/2023 Documentation Only [facility] [address] [place] [phone] Yan Batista [address] [place], [place] [phone] Social History Tobacco Use Types Packs/Day Years Used Date Smoking Tobacco: Never Assessed Comments Unknown Sex and Gender Information Value Date Recorded Sex Assigned at Not on file Legal Sex Female 2:31 PM EST Gender Identity Not on file Sexual Orientation Not on file documented as of this encounter Plan of Treatment Upcoming Encounters Date Type Department Care Team (Late st Contact Info) Description 09/28/2024 1:30 PM EDT Office Visit [facility] [address] [place] [address] Mikel Del Rio MD [address] [place] [address] [place] [phone] documented as of this encounter Visit Diagnoses Not on filedocumented in this encounter Care Teams Log Peeler Relationship Specialty Start Date End Date Yan Batista [address] [place] [address] PCP - General Internal Medicine 05/21/23 documented as of this encounter
--- OUTSIDE RECORDS SUMMARY | 2024-06-23 12:59 | XMS_ITS ---
Author Name [facility] [place] Organization [facility] [place] Address [address] [place] [address] Care Team Providers Care Rail Car Maintenance Mechanic Name Role Phone JIM DUTTA Primary Care [...] Quiros's Name Patient's Relationship to Policy Quiros [facility] HEALTH PLAN MEDICARE (M) [facility] ([facility]) May 26, 2014 [facility] [id number] Kamar CLAUDIO PATIENT [facility] ([facility]) MEDICARE ADVANTAGE [facility] ([facility]) May 26, 2018 [facility] [id number] Kamar CLAUDIO PATIENT Selected Encounter This section includes the information on record at [place] for the Encounter. Date/Time Encounter Type Encounter Description Reason Pro vider Source May 13, 2024 02:14 PM Outpatient Encounter ADMIN PAT ACTIVTIES (MASNONCT) IHE Encounter Template Text not used by [place] Social History: Smoking Status (Most current) and Tobacco Use (All prior to encounter date) This section includes the most current, and the historical, smoking and tobacco- related health factors from the [place] facility where the Encounter took place. Current Smoking Status This section includes the most current smoking, or tobacco-related health factor, from the [place] facility where the Encounter took place. Date/Time Current Smoking Status Comment Fabian ity Mar 08, 2021 01:51 PM VA-TOBACCO NEVER USED [facility] Tobacco Use History This section includes a history of the smoking, or tobacco-related health factors, that were collected on or before the date of the Encounter. The data comes from the [place] facility where the Encounter took place. Date/Time Smoking Status/Tobacco Use Comment F acility Mar 10, 2019 03:59 PM VA-TOBACCO NEVER USED [facility] Advance Directives: All historical and current Section Date Range: From patient's date of to the date document was created. This section includes ALL of a patient's completed or amended [place] Advance and Rescinded Directives. The entries below indicate that a directive exists for the patient, but an actual copy is not included with this document. The data comes from all [place] facilities. Date Advance Directives Provider Source October 08, 2019 ADVANCE DIRECTIVE SYLVIE TOVAR Apr 07, 2013 ADVANCE DIRECTIVE KEANU HOLLOWAY [facility] Encounter Notes: All associated encounter notes This section contains the clinical notes associated to the Encounter. Date/Time Encounter Note(s) Provider Source May 13, 2024 02:14 PM PHARMACY NOTE: LOCAL TITLE: PHARMACY CUSTOMER CARE MEDICATION RENEWAL STANDARD TITLE: PHARMACY NOTE DATE OF NOTE: MAY 13, 2024@14:14 ENTRY DATE: MAY 13, 2024@14:14:49 AUTHOR: JENNIFER SARMIENTO EXP COSIGNER: URGENCY: STATUS: COMPLETED Date: Apr Division: [place] Pt referred by Pharmacy Call Center for medication renewal: Non-controlled/maintenan ce medication Medications requested: [id number] METOPROLOL SUCCINATE 25MG SA TAB Defer to primary care provider To be mailed. Please review and renew if appropriate. *This note was generated by [facility]/[place] Pharmacy Customer Care. If you have any questions or need assistance, do not contact this author. Please refer all questions to your local, on-site pharmacy departments. /doron/ Jennifer Sarmiento CPhT Rn Pain Management, [place]/Pharmacy Customer Care Signed: 05/13/2024 14:16 Receipt Acknowledged By: 05/13/2024 14:36 /es/ SHAMEKA MOELLERN RN-BC REGISTERED NURSE 05/15/2024 16:21 /es/ HARVINDER DE LA CRUZ CERTIFIED NURSE PRACTITIONER JENNIFER SARMIENTO CN[facility]L [facility]
--- OUTSIDE RECORDS SUMMARY | 2024-06-23 12:59 | XMS_ITS | Encounter Summary ---
Author Organization [facility] Address [address] [place] [address] Care Team Providers Care Baccarat Manager Name Role Phone Raffy Workman MD Primary Care Provider [phone] Reason for Referral * Consultation (Routine) - Pending Review Specialty Diagnoses / Procedures Referred By Contac t Referred To Contact Endocrinology Diagnoses Age related osteoporosis, unspecified pathological fracture presence Raffy Workman MD [address] [place] [address] Referral ID Status Reason Start Date Expiration Date Visits Requested Visits Authorized [id number] Pending Review Specialty Services Required 06/21/2024 06/21/2025 1 1 Reason for Visit * Reason Onset Date Comments Referral 06/17/2024 Encounter Details Date Type Department Care Team ([facility] Contact Info) Description 06/17/2024 Telephone Endocrinology - [address] [phone] Mark Lei MD [address] [place] [address] Referral Social History Tobacco Use Types Packs/Day Years Used Date Smoking Tobacco: Never Smokeless Tobacco: Never Alcohol Use Standard Drinks/Week Comments No 0 (1 standard drink = 0.6 oz pur e alcohol) Sex and Gender Information Value Date Recorded Sex Assigned at Not on file Gender Identity Not on file Sexual Orientation Not on file Job Start Date Occupation Industry Not on file Not on file Not on file documented as of this encounter Progress Notes * Raffy Workman MD - 06/21/2024 11:13 AM EST Referral placed. * Deann Hunt MA - 06/17/2024 1:13 PM EST Last office visit 04/02/24 Please sign referral to endo for osteoporosis per pt. * Antonieta Brown - 06/17/2024 12:39 PM EST Referral Request: What insurance does the patient have today? [employer] Preferred HMO Referrals cannot be processed if the insurance is not accurate. If the insurance listed above in red is NO BILLING INFORMATION FOUND FOR THIS ENCOUTNER The patients correct insurance must be obtained and registered in [facility] or their referral can not be processed. Is this a retro request? no. If yes for what date of service do you need the retro referral? not applicable Who is calling to request this referral? patient FIRST and LAST NAME of SPECIALIST PATIENT is seeing: Dr Mark Lei What specialty is this? Endocrinology DIAGNOSIS Patient is being seen for (Not a body part or a procedure): Osteoporosis Have you seen this SPECIALIST for this PROBLEM/DX before? If YES, when? Yes. Have you checked REVIEW or the APPT DESK to see if this referral has already been done or has visits left? yes Is this visit: Follow Up Address of Specialist: [address] [place] [address] Phone # of Specialist: [phone] Fax #: (if applicable): [phone] Does patient have an appointment scheduled?: yes Date of appointment- (including a retro-request): 06/21/24 Is this appointment related to: Not MVA, worker compensation, or surgery related documented in this encounter Plan of Treatment Scheduled Referrals Name Type Priority Associated Diagnoses Order Schedule Ambulatory referral to Endocrinology Outpatient Referral Routine Age related osteoporosis, unspecified pathological fracture presence 1 Occurrences starting 06/21/2024 until 06/17/2025 documented as of this encounter Visit Diagnoses Diagnosis Age related osteoporosis, unspecified pathological fracture presence- Primary documented in this encounter Care Teams Baccarat Manager Relationship Specialty Start Date End Date Raffy Workman MD [address] [place] [address] PCP - General Internal Medicine 04/08/24 documented as of this encounter
--- OUTSIDE RECORDS SUMMARY | 2024-06-23 12:59 | XMS_ITS | Clinical Summary ---
Author Organization [facility], Address [address] [place] [address] [place] [address] Phone Care Team Providers Care Corn Press Operator Name Role Phone Yan Batista Primary Care Provider [phone] Allergies Active Allergy Reactions Criticality Noted Date Comments Acetaminophen 08/01/2023 Diphenhydramine 08/01/2023 Codeine 08/01/2023 Oxycodone 08/01/2023 Oxycodone-Acetaminophen 08/01/2023 Sertraline 08/01/2023 Sulfa Antibiotics 08/01/2023 Tramadol Nausea,Other (see comments) 08/01/19 24 Medications gabapentin (NEURONTIN) 100 MG capsule 1 tab twice daily Active omeprazole OTC (PriLOSEC OTC) 20 MG EC tablet Take 1 capsule every day by oral route. Active aspirin 81 MG chewable tablet Chew 81 mg 1 (one) time each day Active memantine (NAMENDA) 5 MG tablet Take 5 mg by mouth in the morning and 5 mg in the evening. Active metoprolol succinate XL (TOPROL XL) 25 MG 24 hr tablet Take 25 mg by mouth 1 (one) time each day Do not crush or chew. Active apixaban (ELIQUIS) 2.5 MG tablet Take 2.5 mg by mouth in the morning and 2.5 mg in the evening. Active losartan (COZAAR) 25 MG tablet Take 25 mg by mouth 1 (one) time each day Active calcium carbonate (OS-VICTORIA) 600 MG tablet Take 1 tablet by mouth 1 (one) time each day Active Multiple Vitamins-Minera ls (OPTIC-VITES PO) Take by mouth Active Multiple Vitamin (multivitamin) tablet Take 1 tablet by mouth 1 (one) time each day Active Active Problems Problem Noted Date Diagnosed Date Hypertension 08/04/2023 Encounters Date Type Department Care Team Description 03/30/2024 1:30 PM EST Office [facility] [address] [place] [phone] Mikel Del Rio MD Hypertension (Primary Dx) from Last 3 Months Family History Medical History Relation Comments Cancer Brother Diabetes Brother Heart disease Father Stroke Mother Stroke Sister Relation Status Comments Brother Father Mother Sister Social History Tobacco Use Types Packs/Day Years Used Date Smoking Tobacco: Never Smokeless Tobacco: Never Tobacco Cessation:Counseling Given: Not Answered Comments Unknown Sex and Gender Information Value Date Recorded Sex Assigned at Not on file Legal Sex Female 2:31 PM EST Gender Identity Not on file Sexual Orientation Not on file Plan of Treatment Upcoming Encounters Date Type Department Care Team (Late st Contact Info) Description 09/28/2024 1:30 PM EDT Office Visit [facility] [address] [place] [phone] Mikel Del Rio MD [address] [place] [address] [place] [phone] Health Maintenance Due Date Last Done Comments Pneumococcal Vaccine: 65+ Years (2 of 2 - PCV) 03/11/2012 03/11/2011, 04/25/2002 Influenza Vaccine (#1) 2024 3, 02/07/2022, 03/08/2021, Additional history exists Hepatitis B Vaccine Aged Out No longe r eligible based on patient's age to complete this topic Insurance [employer] Care Teams Corn Press Operator Relationship Specialty Start Date End Date Yan Batista [address] [place] [address] PCP - General Internal Medicine 05/21/23
--- OUTSIDE RECORDS SUMMARY | 2024-06-23 12:59 | XMS_ITS | Clinical Summary ---
Author Organization [facility] Address [address] [place] [address] Care Team Providers Care Filer Metal Patterns Name Role Phone Mar Espinosa MD Primary Care Provider + Social History Tobacco Use Types Packs/Day Years Used Date Smoking Tobacco: Never Assessed Sex and Gender Information Value Date Recorded Sex Assigned at Not on file Gender Identity Not on file Sexual Orientation Not on file Plan of Treatment Health Maintenance Due Date Last Done Comments COVID-19 Vaccine (#1) 04/22/1936 Depression Screening 1948 Preventative Health Evaluation 1954 DTap / Tdap / Td (1 - Tdap) 10/21/1955 Shingrix-Zoster Vaccine (1 of 2) 1986 Fall Risk Assessment 2001 Osteoporosis Screening (DEXA Scan) 2001 RSV Adult > 60+ Yrs or Pregn ant (1 - 1-dose 75+ series) 10/21/2011 Pneumococcal Vaccine (2 of 2 - PCV) 03/11/2012 03/11/2011 Influenza Vaccine (#1) 2024 Hepatitis B Vaccines Aged Out No long er eligible based on patient's age to complete this topic RSV Ped < 20 months Aged Out No longe r eligible based on patient's age to complete this topic Care Teams Filer Metal Patterns Relationship Specialty Start Date End Date Mar Espinosa MD [address] [address] PCP - General Internal Medicine 12/22/19
--- OUTSIDE RECORDS SUMMARY | 2024-06-23 12:59 | XMS_ITS | Encounter Summary ---
Author Organization [facility] Address [address] [place] [address] Phone Care Team Providers Care Weigher Alloy Name Role Phone Yan Batista Primary Care Provider [phone] Encounter Details Date Type Department Care Team (Late st Contact Info) Description 10/08/2023 Documentation Only [facility] [address] [place] [phone] [place] [address] [place] [address] Social History Tobacco Use Types Packs/Day Years Used Date Smoking Tobacco: Never Smokeless Tobacco: Never Comments Unknown Sex and Gender Information Value Date Recorded Sex Assigned at Not on file Legal Sex Female 2:31 PM EST Gender Identity Not on file Sexual Orientation Not on file documented as of this encounter Plan of Treatment Upcoming Encounters Date Type Department Care Team (Late st Contact Info) Description 09/28/2024 1:30 PM EDT Office Visit [facility] [address] [place] [address] Mikel Del Rio MD [address] [place] [phone] documented as of this encounter Visit Diagnoses Not on filedocumented in this encounter Care Teams Weigher Alloy Relationship Specialty Start Date End Date Yan Batista [address] [place] [address] PCP - General Internal Medicine 05/21/23 documented as of this encounter
--- OUTSIDE RECORDS SUMMARY | 2024-06-23 12:59 | XMS_ITS ---
Author Name [facility] [place] [facility] [place] Address [address] [place] [id number] Care Team Providers Care Switch Engineer Name Role Phone JIM DUTTA Primary Care [...] Quiros's Name Patient's Relationship to Policy Quiros [facility] HEALTH PLAN MEDICARE (M) [facility] ([facility]) May 26, 2014 [facility] [id number] PATIENT [facility] MEDICARE ADVANTAGE [facility] ([facility]) May 26, 2018 [facility] [id number] Kamar CLAUDIO PATIENT Selected Encounter This section includes the information on record at [place] for the Encounter. Date/Time Encounter Type Encounter Description Reason Pro vider Source Feb 09, 2024 12:54 PM Outpatient Encounter ADMIN PAT ACTIVTIES (MASNONCT) IHE Encounter Template Text not used by PA Plan of Treatment: Future Appointments (+ 6 [...] 20 appointments. The data comes from all [place] treatment facilities. Appointment Date/Time Appointment Type Appointme nt Facility Name Mar 02, 2024 01:00 PM [facility] Mar 02, 2024 02:00 PM [facility] Mar 02, 2024 02:45 PM [facility] Apr 07, 2024 02:30 PM AMBULATORY - MEDICINE [place] Active, Pending, and Scheduled Orders This section includes a listing of several types of active, pending, and scheduled orders, including clinic medications orders, diagnostic test orders, procedure orders and consult orders; where the start date of the order is 45 days before the date of the Encounter or 45 days after the date of theEncounter. The data comes from all [facility]. Test Date/Time Test Type Test Details Facility Name Mar 03, 2024 07:28 AM Consult Order COMMUNITY CARE-PHYSICAL THERAPY Cons Sales Coach's Choice [facility] Social History: Smoking Status (Most current) and Tobacco Use (All prior to encounter date) This section includes the most current, and the historical, smoking and tobacco- related health factors from the [place] facility where the Encounter took place. Current Smoking Status This section includes the most current smoking, or tobacco-related health factor, from the [place] facility where the Encounter took place. Date/Time Current Smoking Status Comment Fabian ity Mar 08, 2021 01:51 PM VA-TOBACCO NEVER USED [facility] Tobacco Use History This section includes a history of the smoking, or tobacco-related health factors, that were collected on or before the date of the Encounter. The data comes from the [place] facility where the Encounter took place. Date/Time Smoking Status/Tobacco Use Comment F acility Mar 10, 2019 03:59 PM PA-TOBACCO NEVER USED [facility] Advance Directives: All historical and current Section Date Range: From patient's date of to the date document was created. This section includes ALL of a patient's completed or amended [place] Advance and Rescinded Directives. The entries below indicate that a directive exists for the patient, but an actual copy is not included with this document. The data comes from all [place] facilities. Date Advance Directives Provider Source October 08, 2019 ADVANCE DIRECTIVE SYLVIE TOVAR LD Apr 07, 2013 ADVANCE DIRECTIVE AMIEKEANU Castelan [facility] Radiology Reports: +/- 30 days of the encounter Radiology Reports For cases when an order for radiology services may have been completed prior to the date of the Encounter, the report list includes the Radiology Reports that were completed up to 30 days before dateof the Encounter. For cases when an order for radiology services may have been completed after the date of the Encounter, the report list also includes the Radiology Reports that were completed up to30 days after date of the Encounter. The data comes from all [place] treatment facilities. Date/Time Radiology Report Provider Source Mar 02, 2024 02:[address] ORBIT SELLA P FOS OR TEMP BONE W/O CONT: JOSE CLAUDIO Mikey [id number] [phone] F Exm Date: MAR 02, 2024@14:54 Req Phys: JANUARY VALDEZ Loc: CWM/NO/OTOLARYNGOLOGY (Req'g L Img Loc: NHM/CT Service: Unknown [place] [address] (Case [id number] COMPLETE) CT ORBIT SELLA P FOS OR TEMP BONE(CT Detailed) CPT:65616 Proc Modifiers : BILATERAL EXAM Reason for Study: RIGHT CHL Clinical History: RIGHT CHL Report Status: Verified Date Reported: MAR 04, 2024 Date Verified: MAR 04, 2024 Film Archivist E-Sig: Report: CT ORBIT SELLA P FOS OR TEMP BONE W/O CONT CLINICAL HISTORY: RIGHT CHL COMPARISON: No priors available TECHNIQUE: The study was protocoled and supervised at the local [place] facility. 1237 images were subsequently received by the [place] National Teleradiology Program (NTP) for interpretation. Total DLP (mGy*cm): 465.9. IV Contrast Not Administered. FINDINGS: RIGHT: External Auditory Canal: Normal. Middle Ear Cavity: Normal. Ossicles: Normal. Inner Ear Structures: Normal. Internal Auditory Canal: Normal. Mastoid Air Cells: Minimal opacification LEFT: External Auditory Canal: Normal. Middle Ear Cavity: Normal. Ossicles: Normal. Inner Ear Structures: Normal. Internal Auditory Canal: Normal. Mastoid Air Cells: Normal. OTHER: Mandibular Condyles & TMJs: Left TMJ osteoarthritis. Right TMJ unremarkable. Infratemporal Fossae: Normal. Visualized Paranasal Sinuses: Clear Intracranial Structures: Unremarkable. Skull: Generalized osteopenia. There are more focal areas of osteopenia noted, including the lateral masses of C1 and right occipital condyle. Impression: Right temporal bone: Minimal mastoid air cell opacification. Right temporal bone is otherwise unremarkable. Left temporal bone: Unremarkable. READING PHYSICIAN: Keanu Guzmán MD -[id number] 03/04/2024 13:39 CDT [facility] National Teleradiology Program [phone] (For Medical Practitioner Use Only) Attention Patients / Veterans: If you have questions or concerns about these test results, please contact your ordering provider or primary care team. Primary Diagnostic Code: NO ALERT REQUIRED Primary Interpreting Staff: RADIOLOGY,OUTSIDE SERVICE, Staff Physician / RADIOLOGY,OUTSIDE SERVICE [facility] Encounter Notes: All associated encounter notes This section contains the clinical notes associated to the Encounter. Date/Time Encounter Note(s) Provider Source Feb 09, 2024 12:54 PM PHARMACY NOTE: LOCAL TITLE: V1 PHARMACY CUSTOMER CARE MEDICATION RENEWAL STANDARD TITLE: PHARMACY NOTE DATE OF NOTE: FEB 09, 2024@12:54 ENTRY DATE: FEB 09, 2024@12:54:30 AUTHOR: LAXMI JNI COSIGNER: URGENCY: STATUS: COMPLETED V1 PHARMACY CUSTOMER CARE MEDICATION RENEWAL Has ADDENDA Date: Jan Division: [facility] referred by Pharmacy Call Center for medication renewal: Non-controlled/maintenance medication Medications requested: [id number]$ APIXABAN 5MG TAB PLEASE NOTE: This medication is long . Please review as the has requested to renew it. Defer to primary care provider To be mailed . Please review and renew if appropriate. *This note was generated by [facility] Pharm[facility] Customer Care. If you have any questions or need assistance, do not contact this author. Please refer all questions to your local, on-site pharmacy departments. /doron/ LAXMI JIN CPhT [employer], [place]/Pharmacy Customer Care Signed: 02/09/2024 12:55 Receipt Acknowledged By: 02/19/2024 17:15 /doron/ JURGEN WIGGINS MD PRIMARY CARE PHYSICIAN 02/12/2024 15:36 /doron/ FELIPE FERREIRA, RN REGISTERED NURSE for YANA AYALA 03/10/2024 ADDENDUM STATUS: COMPLETED I discussed with patient's granddaughter August At [id number] and confirmed the patient is on apixaban 2.5 mg p.o. twice a day for atrial fibrillation She saw her planisher recently and was advised to continue with apixaban Also the granddaughter ask for atorvastatin renewaldone /doron/ JURGEN WIGGINS MD PRIMARY CARE PHYSICIAN Signed: 03/10/2024 12:59 LAXMI JIN CNTRL IRENETRCalvin [facility]
--- OUTSIDE RECORDS SUMMARY | 2024-06-23 12:59 | XMS_ITS | Encounter Summary ---
Author Organization [facility] Address [address] [place] [address] Care Team Providers Care Pleating Supervisor Name Role Phone Raffy Workman MD Primary Care Provider [phone] Reason for Referral * Home Health (Routine) - Pending Review Specialty Diagnoses / Procedures Referred By Contac t Referred To Contact Home Health Services Diagnoses TIA (transient ischemic attack) Venous insufficiency Spinal stenosis, unspecified spinal region Lumbar radiculopathy Longstanding persistent atrial fibrillation (CMS/HCC) Hypercholesterolemia Current moderate episode of major depressive disorder without prior episode (CMS/HCC) Primary hypertension Raffy Workman MD [address] [place] [address] Referral ID Status Reason Start Date Expiration Date Visits Requested Visits Authorized [id number] Pending Review Consult and Treat 06/23/2024 06/23/2025 1 1 Reason for Visit * Reason Onset Date Comments Referral 06/22/2024 VNA skilled nurs ing Encounter Details Date Type Department Care Team (Late st Contact Info) Description 06/22/2024 Telephone Canteen Attendant - [facility] [address] [place] [address] Raffy Workman MD [address] [place] [id number] Referral (VNA long term) Social History Tobacco Use Types Packs/Day Years [...] Progress Notes * Raffy Workman MD - 06/23/2024 12:02 PM EST Home health referral placed. * Chika Horn MA - 06/23/2024 8:58 AM EST Spoke with Maddy, pt seen 04/02 with PCP. Maddy is going out of town for a week or so and pt will bealone. She is looking for VNA to come help with Meds and monitor BP. Please advise. * Emily Mcguire MA - 06/22/2024 2:38 PM EST Needs appt. Tried to call and no answer, unable to leave message also. I am at extension [phone] * Gabriel Riley - 06/22/2024 2:30 PM EST Caller requesting call back from provider: Is the caller the patient? NO If caller is not the patient, what is the callers name? StellaMaddy Callers relationship to patient? Grandtr If person calling is not the patient themselves, is there a verbal release in FYI or permanent comments for this person: States that she is pt's POA Reason for call back: requesting long term via VNA to assist pt with meds Caller offered to speak with the nurse for assistance: YES Response: Maddy's ph# [phone] documented in this encounter Plan of Treatment Scheduled Referrals Name Type Priority Associated Diagnoses Orde r Schedule Ambulatory referral to Home Health Outpatient Referral Routine TIA (transient ischemic attack) Venous insufficiency Spinal stenosis, unspecified spinal region Lumbar radiculopathy Longstanding persistent atrial fibrillation (CMS/HCC) Hypercholesterolemia Current moderate episode of major depressive disorder without prior episode (CMS/HCC) Primary hypertension 1 Occurrences starting 06/23/2024 until 06/23/2025 documented as of this encounter Visit Diagnoses Diagnosis TIA (transient ischemic attack)- Primary Unspecified transient cerebral ischemia Venous insufficiency Unspecified venous (peripheral) insufficiency Spinal stenosis, unspecified spinal region Lumbar radiculopathy Thoracic or lumbosacral neuritis or radiculitis, unspecified Longstanding persistent atrial fibrillation (CMS/HCC) Hypercholesterolemia Pure hypercholesterolemia Current moderate episode of major depressive disorder without prior episode (CMS/HCC) Primary hypertension Unspecified essential hypertension documented in this encounter Care Teams Pleating Supervisor Relationship Specialty Start Date End Date Raffy Workman MD [address] [place] [id number] PCP - General Internal Medicine 04/08/24 documented as of this encounter
--- OUTSIDE RECORDS SUMMARY | 2024-06-23 12:59 | XMS_ITS ---
Author Name [facility] [place] [facility] [place] Address [address] [place] [address] Care Team Providers Care Recreation Program Coordinator Name Role Phone JIM DUTTA Primary Care [...] Quiros's Name Patient's Relationship to Policy Quiros [facility] HEALTH PLAN MEDICARE (M) [facility] ([facility]) May 26, 2014 [facility] [id number] [phone] Kamar CLAUDIO PATIENT [facility] ([facility]) MEDICARE ADVANTAGE [facility] ([facility]) May 26, 2018 [facility] [id number] [phone] Kamar CLAUDIO PATIENT Selected Encounter This section includes the information on record at [place] for the Encounter. 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 This section includes future appointments and future orders which are active, pending or scheduled. Future Appointments This section includes appointments that were scheduled to occur 6 months from the date of the Encounter, up to a maximum of 20 appointments. The data comes from all [place] treatment facilities. Appointment Date/Time Appointment Type Appointme nt Facility Name Apr 07, 2024 02:30 PM AMBULATORY - [...] of theEncounter. The data comes from all [facility] facilities. Test Date/Time Test Type Test Details Facility Name Mar 03, 2024 07:28 AM Consult Order COMMUNITY CARE-PHYSICAL THERAPY Cons Engineer Intern's Choice [facility] Vital Signs: All taken on the encounter date This section contains inpatient and outpatient Vital Signs collected on the date of the Encounter. Date/Time Temperature Pulse Blood Pressure Respiratory Rate SP02 Pain Height Weight Body Mass Index Source Mar 02, 2024 02:07 PM 97 77 169/81 16 98 0 121 21 [facility] Social History: Smoking Status (Most current) and Tobacco Use (All prior to encounter date) This section includes the most current, and the historical, smoking and tobacco- related health factors from the [place] facility where the Encounter took place. Current Smoking Status This section includes the most current smoking, or tobacco-related health factor, from the [place] facility where the Encounter took place. Date/Time Current Smoking Status Comment Fabian sol Mar 08, 2021 01:51 PM VA-TOBACCO NEVER USED [facility] Tobacco Use History This section includes a history of the smoking, or tobacco-related health factors, that were collected on or before the date of the Encounter. The data comes from the [place] facility where the Encounter took place. Date/Time Smoking Status/Tobacco Use Comment Maykel reeves Mar 10, 2019 03:59 PM VA-TOBACCO NEVER USED [facility] Advance Directives: All historical and current Section Date Range: From patient's date of to the date document was created. This section includes ALL of a patient's completed or amended [place] Advance and Rescinded Directives. The entries below indicate that a directive exists for the patient, but an actual copy is not included with this document. The data comes from all [place] facilities. Date Advance Directives Provider Source October 08, 2019 ADVANCE DIRECTIVE SYLVIE TOVAR Apr 07, 2013 ADVANCE DIRECTIVE KEANU [facility] Radiology Reports: +/- 30 days of the [...] the Encounter. The data comes from all [place] treatment facilities. Date/Time Radiology Report Provider Source Mar 02, 2024 02:[address] ORBIT SELLA P FOS OR TEMP BONE W/O CONT: JOSE CLAUDIO [id number] [phone] F Exm Date: MAR 02, 2024@14:54 Req Phys: JANUARY MCKEON Loc: CWM/NO/OTOLARYNGOLOGY (Req'g L Img Loc: [facility]/CT Service: Unknown [facility] JOO TAYLOR [id number] (Case 222 COMPLETE) CT ORBIT SELLA P FOS OR TEMP BONE(CT Detailed) CPT:39515 Proc Modifiers : BILATERAL EXAM Reason for Study: RIGHT CHL Clinical History: RIGHT CHL Report Status: Verified Date Reported: MAR 04, 2024 Date Verified: MAR 04, 2024 Double Spindle Shaper Operator E-Sig: Report: CT ORBIT SELLA P FOS OR TEMP BONE W/O CONT CLINICAL HISTORY: RIGHT CHL COMPARISON: No priors available TECHNIQUE: The study was protocoled and supervised at the local [place] facility. 1237 images were subsequently received by the [place] National Teleradiology Program (NTP) for interpretation. Total [...] bone: Unremarkable. READING PHYSICIAN: Keanu Guzmán MD -[id number] 03/04/2024 13:39 CDT [facility] National Teleradiology Program [phone] (For Medical Practitioner Use Only) Attention Patients / Veterans: If you have questions or concerns about these test results, please contact your ordering provider or primary care team. Primary Diagnostic Code: NO ALERT REQUIRED Primary Interpreting Staff: RADIOLOGY,OUTSIDE SERVICE, Staff Physician / RADIOLOGY,OUTSIDE SERVICE [facility] Encounter Notes: All associated encounter notes This section contains the clinical notes associated to the Encounter. Date/Time Encounter Note(s) Provider Source Mar 02, 2024 02:39 PM OTOLARYNGOLOGY CONSULT: LOCAL TITLE: CONSULT REPORT/OTOLARYNGOLOGY STANDARD TITLE: OTOLARYNGOLOGY CONSULT DATE OF NOTE: MAR 02, 2024@14:39 ENTRY DATE: MAR 02, 2024@14:39:41 AUTHOR: JANUARY MCKEON COSIGNER: URGENCY: STATUS: COMPLETED CONSULT REPORT/OTOLARYNGOLOGY Has ADDENDA CONSULT REQUESTED FROM JURGEN WIGGINS MAR 02, 2024 JOSE CLAUDIO is a 88 y/o WHITE FEMALE, previously in [employer] FROM Nov TO Jul from [employer] [place] [employer], w/chief complaint of LIGHTHEADEDNESS AND A FEELING OF FULLNESS IN HER HEAD X 3 YEARS 88-year-old female here with her granddaughter secondary to a complaint of lightheadedness and a feeling of fullness in her head for the last 3 years. The patient's granddaughter helps with the history as they both stated that she is in early stages of dementia. She states that she will wake up in the morning and feel fine but then around 11:00 she will begin to feel a fullness in her head and lightheadedness. This will last till approximately 4 PM and then she will be better in the evening. They have really been trying to figure this out for a long time. They have moved her medications because the patient feels very convinced that it is related to her medications. Now the only medication she takes in the morning is half of her apixaban and all the other medications she takes in the evening. She never describes as spinning. It is not positional although she states that she knows that she cannot sleep on 1 side or she gets dizzy. She denies tinnitus. She has worn hearing aids for greater than 20 years. Patient does have A-fib. She also has history of eustachian tube dysfunction. She states that she had many ear infections as a child but not as an adult. She has not had any falls. According to notes from PCP visit this spring the patient did have orthostatic hypotension and was told to drink more water. Patient states that she tries to drink water but probably does not drink enough and talks about an article she read that states you should not drink unless you are thirsty. PMHx: Active problems - Computerized Problem List is the source for the followin. Orthostatic hypotension 2. HTN - Hypertension (SCT 34877956) 3. Memory loss 4. Serum creatinine above reference range 5. Under care of multiple providers 6. Long-term current use of anticoagulant 7. AF- Atrial Fibrillation (SCT 87853763) 8. Cervicalgia 9. Diverticulosis 10. Irritable bowel 11. Rotator cuff shoulder syndrome and allied disorders 12. Senile osteopenia (SNOMED CT 04409838) 13. Screening Mammography Results Documented and Reviewed (PV) 14. Colonic Polyps 15. Dysfunction of Eustachian tube 16. Reflux Esophagitis 17. Hiatal hernia * 18. Anxiety disorder (SNOMED CT 421342321) 19. Hyperlipidemia (SNOMED CT 77874295) 20. Hearing loss (SNOMED CT 96456864) Service Connected Disabilities with % Eligibility: NSC VERIFIED MEDS: Active Outpatient Medications (including Supplies): APIXABAN 5MG TAB TAKE ONE-HALF TABLET BY MOUTH EVERY 12 ACTIVE (S) HOURS ATORVASTATIN CALCIUM 40MG TAB TAKE ONE-HALF TABLET BY ACTIVE MOUTH AT BEDTIME FOR HIGH CHOLESTEROL LOSARTAN 50MG TAB TAKE ONE TABLET BY MOUTH ONCE DAILY FOR ACTIVE HIGH BLOOD PRESSURE METOPROLOL SUCCINATE 25MG SA TAB TAKE ONE TABLET BY MOUTH ACTIVE ONCE DAILY FOR BLOOD PRESSURE/HEART Non-VA ASPIRIN 81MG EC TAB 81MG BY MOUTH ONCE DAILY ACTIVE Non-VA CALCIUM CARBONATE 650MG (CA 260MG) TAB 650MG BY ACTIVE MOUTH DAILY Non-VA MULTIVITAMIN/MINERALS CAP/TAB 1 TABLET BY MOUTH ACTIVE DAILY Non-VA VITAMIN D3 (CHOLECALCIFEROL) TAB BY MOUTH ACTIVE ALL: CODEINE, PNEUMOVAX 23 Fam Hx: Non - contributory ROS: Denies any other relavent ROS Vitals Enter at: Mar 02, 2024@14:07:46 BP: 169/81 P: 77 R: 16 T: 97 121 lb [54.88 kg] (03/02/2024 14:07) BMI: 21.5 CONSTITUTION: GENERAL APPEARANCE:Well developed, well nourished and groomed. No apparent acute or chronic distress. FORGETFUL HEAD, FACE, SALIVARY GLANDS AND TMJ: Palpation of Parotid and Submandibular glands: Normal. Facial Mobility: Normal. EAR, NOSE, MOUTH AND THROAT: Pinnas - normal. Otoscopic exam: HEARING AIDS REMOVED FOR THE EXAMINATION RIGHT EAR: EXTERNAL AUDITORY CANAL NORMAL, TYMPANIC MEMBRANE SIGNIFICANT TYMPANOSCLEROSIS, NO MOBILITY LEFT EAR: EXTERNAL AUDITORY CANAL NORMAL, TYMPANIC MEMBRANE SIGNIFICANT TYMPANOSCLEROSIS, NO MOBILITY SIGNIFICANT HEARING LOSS Nasal Interior: Turbinates and middle meatus - Inferior turbinates normal. Normal mucosa with no swelling, polyps, active bleeding or evidence of bleeding. Lips, Teeth and Gums: Lips normal. Oral Cavity and Oropharynx: Oral mucosa with normal color and moisture. Anterior 2/3rds of tongue normal. Breath quality normal. Hard palate normal. Normal floor of mouth, Posterior pharynx normal. NECK AND THYROID: Neck: no adenopathy; no neck masses. RESPIRATORY: Respiratory effort normal. LYMPH NODES: Neck nodes: normal. NEUROLOGIC: Higher integrative functions: Normal orientation, memory, attention span and concentration, language, and fund of knowledge. Cranial nerves: Cranial nerves II-XII grossly intact and symmetrical. RINNE POSITIVE CANDELARIO MIDLINE, UNSTEADY WITH ROMBERG, NONLOCALIZING, UNABLE TO PERFORM TANDEM GAIT, WALKS WITH WIDE-BASED GAIT PRADIP-HALLPIKE MANEUVER WAS POSITIVE FOR ROTARY [place] WITH THE HEAD HANGING RIGHT POSITION PSYCHIATRIC: Mood and affect: normal and appropriate to the situation. AUDIOGRAM 03-02-2024 Otoscopy is WNL for both ears. 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 Right ear testing revealed a profound mixed hearing loss at 250-1000 Hz and at 6000 and 8000 Hz with a moderately severe loss in the 2000 Hz range. Asymmetry, worse right ear, was seen at all frequencies. Right ear thresholds were confirmed with an insert. Word recognition scores were good for the left ear with 84% correct and poor for the right ear with 60% correct for recorded speech presented at 85/95 dB HL (masked for right ear testing). Type B tympanograms were obtained bilaterally (limited or no eardrum mobility). Left ear results obtained today are considered stable in comparison to those from 2022 while right ear thresholds and WRS have declined. CT temporal bone 03-02-2024 Report pending. No evidence of middle ear fluid Assessment/Plan MAR 02, 2024: 88-year-old female here with her granddaughter secondary to a complaint of lightheadedness and a feeling of fullness in her head for the last 3 years. The patient's granddaughter helps with the history as they both stated that she is in early stages of dementia. She states that she will wake up in the morning and feel fine but then around 11:00 she will begin to feel a fullness in her head and lightheadedness. This will last till approximately 4 PM and then she will be better in the evening. They have really been trying to figure this out for a long time. They have moved her medications because the patient feels very convinced that it is related to her medications. Now the only medication she takes in the morning is half of her apixaban and all the other medications she takes in the evening. She never describes as spinning. It is not positional although she states that she knows that she cannot sleep on 1 side or she gets dizzy. She denies tinnitus. She has worn hearing aids for greater than 20 years. Patient does have A-fib. She also has history of eustachian tube dysfunction. She states that she had many ear infections as a child but not as an adult. She has not had any falls. According to notes from PCP visit this spring the patient did have orthostatic hypotension and was told to drink more water. Physical exam shows normal EACs tympanic membrane's show significant tympanosclerosis bilaterally. Patient had normal RINNE, Candelario midline. Patient had unsteady Romberg nonlocalizing was unable to perform tandem gait. Positive Pradip-Hallpike maneuver with the head hanging right position. 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 CT of the temporal bone was performed today and showed no evidence of middle ear fluid. 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 Thankfully the patient does perceive that she is getting improvement from her hearing aids and will continue to wear her hearing aids. 2. Imbalance -I had a long discussion with the patient and her granddaughter. In general this feeling of fullness and lightheadedness is likely multifactorial. Her symptoms are not otologic in nature and there was no evidence of middle ear fluid. Given that the patient has A-fib she is much more prone to orthostasis if she becomes dehydrated. I have reassured her that I do not believe that her medications are resulting in the symptoms as I understand that she currently is taking the majority of her medications now at night and her symptoms are in the day. 3. Right-sided BPPV -patient did have a positive Pradip-Hallpike maneuver that was very strong with the head hanging right position. I have offered her vestibular rehab which may also be useful for her balance as well. They are interested in pursuing this but would like this to be done in the community as it is a long drive for her to come up here. I will place that consult. All questions were answered. Patient will follow-up as needed. Complete encounter includes: Review of past medical records Time spent with patient including obtaining history, physical exam, shared decision making, procedures Counseling and answering questions Post visit documentation to include but not limited to medication and lab ordering. Total time = Minimum 55 min MEDICATION RECONCILIATION Outpatient: Has the patient been taking medications as documented in the EMLR? YES: The patient has been taking medications as documented in the EMLR. Essential Medication List for Review used to complete this medication reconciliation. INCLUDED IN THIS LIST: Alphabetical list of active outpatient prescriptions dispensed from this [facility] (local) and dispensed from another VA or [...] Remote Allergy/ADR Data available for this patient [facility] CODEINE [facility] PNEUMOVAX 23 Med Recon NoGlossary (Tool #1) INCLUDED IN THIS LIST: Alphabetical list of active outpatient prescriptions dispensed from this [place] (local[place] and dispensed from another [place] or [facility] facility (remote) as well as inpatient orders (local pending and active), local clinic medications, locally documented non-VA medications, and local prescriptions that have or been discontinued in the past 90 days. Non-VA Meds Last Documented On: Aug 06, 2021 NOTE The display of VA prescriptions dispensed from another VA or [facility] facility (remote) is limited to active outpatient prescription entries matched to National Drug File at the originating site and may not include some items such as investigational drugs, compounds, etc. NOT INCLUDED IN THIS LIST: Medications self-entered by the patient into personal health records (i.e. [employer] [place]) are NOT included in this list. Non-VA medications documented outside this [place], remote inpatient orders (regardless of status) and remote clinic medications are NOT included in this list. The patient and provider must always discuss medications the patient is taking, regardless of where the medication was dispensed or obtained. OUTPT APIXABAN 5MG TAB (Status = Discontinued) TAKE ONE-HALF TABLET BY MOUTH EVERY 12 HOURS Rx# [id number] Last Released: 02/26/24 QtyDays Supply: Rx Expiration Date: 05/19/24 Refills Remainin Indication: A FIB OUTPT APIXABAN 5MG TAB (Status = Active/Suspended) TAKE ONE-HALF TABLET BY MOUTH EVERY 12 HOURS Rx# [id number] Last Released: Supply: Rx Expiration Date: 05/30/24 Refills Remainin Indication: A FIB Non-VA ASPIRIN 81MG EC TAB TAKE ONE TABLET BY MOUTH ONCE DAILY Medication prescribed by Non-VA provider. OUTPT ATORVASTATIN CALCIUM 40MG TAB (Status = Active) TAKE ONE-HALF TABLET BY MOUTH AT BEDTIME FOR HIGH CHOLESTEROL Rx# [id number] Last Released: 03/02/24 Qty/Days Supply: Rx Expiration Date: 06/24/24 Refills Remainin Indication: FOR HIGH CHOLESTEROL Non-VA CALCIUM CARBONATE 650MG (CA 260MG) TAB TAKE ONE TABLET BY MOUTH DAILY OUTPT LOSARTAN 50MG TAB (Status = Active) TAKE ONE TABLET BY MOUTH ONCE DAILY FOR HIGH BLOOD PRESSURE Rx# [id number] Last Released: 02/11/24 Qty/Days Supply: Rx Expiration Date: 10/03/24 Refills Remainin Indication: FOR HIGH BLOOD PRESSURE OUTPT METOPROLOL SUCCINATE 25MG SA TAB (Status = Active) TAKE ONE TABLET BY MOUTH ONCE DAILY FOR BLOOD PRESSURE/HEART Rx# [id number] Last Released: 02/11/24 Qty/Days Supply: Rx Expiration Date: 05/14/24 Refills Remainin Non-VA MULTIVITAMIN/MINERALS CAP/TAB CAP/TAB TAKE ONE TABLET BY MOUTH DAILY Non-VA VITAMIN D3 (CHOLECALCIFEROL) TAB TAKE BY MOUTH Medication prescribed by Non-VA provider. SUPPLIES /doron/ January Mckeon MD Otolaryngology Signed: 03/03/2024 07:28 03/04/2024 ADDENDUM STATUS: COMPLETED Report reviewed, no new action required. CT ORBIT SELLA P FOS OR TEMP BONE W/O CONT Exm Date: MAR 02, 2024@14:54 Req Phys: JANUARY MCKEON Loc: [facility]//OTOLARYNGOLOGY (Req'g L Img Loc: [facility]/CT Service: [place] [address] (Case 222 COMPLETE) CT ORBIT SELLA P FOS OR TEMP BONE(CT Detailed) CPT:52008 Proc Modifiers : BILATERAL EXAM Reason for Study: RIGHT CHL Clinical History: RIGHT CHL Report Status: Verified Date Reported: MAR 04, 2024 Date Verified: MAR 04, 2024 Double Spindle Shaper Operator E-Sig: Report: CT ORBIT SELLA P FOS OR TEMP BONE W/O CONT CLINICAL HISTORY: RIGHT CHL COMPARISON: No priors available TECHNIQUE: The study was protocoled [facility] the [facility]. 1237 images were subsequently received by the [place] National Teleradiology Program (NTP) for interpretation. Total [...] bone: Unremarkable. READING PHYSICIAN: Keanu Guzmán MD -[id number] 03/04/2024 13:39 CDT Primary Diagnostic Code: NO ALERT REQUIRED /es/ January Mckeon MD Otolaryngology Signed: 03/04/2024 15:01 JANUARY MCKEON CNTRL W[facility]N [facility]
--- OUTSIDE RECORDS SUMMARY | 2024-06-23 13:00 | XMS_ITS | Continuity of Care Document ---
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 It does not include entries that were removed or entered in error. Problem Status Onset Date Problem Type Date of Resolution Comments Source AF- Atrial Fibrillation (SCT 41467844) Active Condition [place] Anxiety disorder (SNOMED CT 584065199) Active Condition [place] Cervicalgia Active Condition [facility] [place] [facility] CKD stage 4 Active Condition Apr 05, 2024 Entered By: JIM DUTTA Comment: 10/07/23 GFR 2023 Entered By: JIM DUTTA Comment: sees neprology [place] Gastroesophageal reflux disease with hiatal hernia Active Condition Apr 26 Entered By: KIKE MARROQUIN Comment: Dr Hussein EGD Hiatial hernia neg H pylori 2000 [facility] [place] [facility] Hearing loss (SNOMED CT 59552467) Active Condition Apr 07, 2024 Entered By: JIM DUTTA Comment: b/l hearing aids [place] HTN - Hypertension (SCT 24361564) Active Condition [facility] D Hyperlipidemia (SNOMED CT 21060751) Active Condition [place] Irritable bowel Active Condition [facility] Long-term current use of anticoagulant Active Condition Apr 05, 2024 Entered By: JIM DUTTA Comment: Eliquis for AF [facility] (631GE) Orthostatic hypotension Active Condition [place] Screening for malignant neoplasm of colon done Active Condition Sep 05, 2011 Entered By: NEGAR MCGREGOR Comment: colonoscopy March 2011 to tubular adenomas. Repeat 2023 Entered By: JIM DUTTA Comment: C'scope 06/13/14 no polyps, sigmoid 'tics, int.hemorrhoids , diverticuli [facility] Scre[facility] Mammography Results Documented and Reviewed (PV) Active Condition Dec 24 13 Entered By: NEGAR MCGREGOR Comment: 11/05/2012: no mammographic evidence of malignancyMa2019 Entered By: NEGAR MCGREGOR Comment: mammo 12/30/18 No abnormalities [place] Senile osteopenia Active Condition Ma r 2013 Entered By: NEGAR MCGREGOR Comment: 11/05- Spine T= -.3, Z=1.7. Fem T=-1.1, Z=.8Nov 2023 Entered By: JIM DUTTA Comment: no hx OP fracturesNov 2023 Entered By: JIM DUTTA Comment: DEXA 03/2023 [place] Under care of multiple providers Active Condition Apr 26 Entered By: HELENA HOPKINS Comment: Dr Claire Sadler [facility] Cardio at [phone] 2023 Entered By: JIM DUTTA Comment: Dr. Lei - nephrologyNov 2023 Entered By: JIM DUTTA Comment: Dr. Morales - community PCP [facility] Vascular dementia Active Condition [facility] [place] Alllergy to Codeine Inactive Condition 10/07/2005 Nov 04, 2001 Entered By: MARIO TEJEDA Comment: GI disturbance [place] Dysfunction of Eustachian tube Inactive Condition 04/05/2024 Aug 21, 2005 Entered By: KIKE MARROQUIN Comment: [facility] Torie [facility] Esophageal Reflux (GERD) Inactive Condition 10/07/2005 [place] Rotator cuff shoulder syndrome and allied disorders Inactive Condition 04/05/2024 [place] Diagnosis: ICD-10-CM I10 Essential (primary) hypertension Active Diagnosis [place] Diagnosis: ICD-10-CM H90.A31 Mix cndct/snrl hear loss,uni,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 [facility] [place] [facility] Diagnosis: ICD-10-CM Z46.1 Encounter for fitting and adjustment of hearing aid Active Diagnosis [place] Diagnosis: ICD-10-CM Z04.89 Encounter for examination and observation for oth reasons Active Diagnosis [facility] (631GE) Medications Combined list of outpatient medications from Department of Defense and [facility] Affairs facilities.Medications provided include 1) outpatient medications from the last 15 months, and 2) patient-reported medications. Medication Details Route Status Patient Instructions Prescription Expires Prescription Number Last Dispense Date Ordering Provider Order Date Order Qty Source APIXABAN 5MG TAB TAKE ONE-HALF TABLET BY MOUTH EVERY 12 HOURS ORAL DISCONT INUED 05/19/2024 [id number] AURORAAMANJOSE Cabrales F 2023 90 [facility] IELD APIXABAN 5MG TAB TAKE ONE-HALF TABLET BY MOUTH EVERY 12 HOURS ORAL 05/30/2024 [id number] JOSE WIGGINS F 2023 90 [facility] IELD APIXABAN 5MG TAB TAKE ONE-HALF TABLET BY MOUTH EVERY 12 HOURS FOR PREVENTI ON OF BLOOD CLOTS (DOSE REDUCTIO N) ORAL 10/09/2023 [id number] AURORAJOSE LOVETT NANCY F 2022 90 [place] ASPIRIN 81MG TAB,EC TAKE ONE TABLET BY MOUTH ONCE DAILY ORAL ACTIVE FERN JERONIMO 2021 [place] ATORVASTATI N CA 40MG TAB TAKE ONE-HALF TABLET BY MOUTH AT BEDTIME FOR HIGH CHOLESTE ROL ORAL ACTIVE 03/11/2025 [id number] 5 AURORAAMANSamraJOSE ALSTONGONZALEZ F 2024 45 [place] ATORVASTATI N CA 40MG TAB TAKE ONE-HALF TABLET BY MOUTH AT BEDTIME FOR HIGH CHOLESTE ROL ORAL DISCONT INUED 06/24/2024 [id number] JOSE WIGGINS F 2023 45 [place] LOSARTAN 50MG TAB TAKE ONE TABLET BY MOUTH ONCE DAILY FOR HIGH BLOOD PRESSURE ORAL DISCONT INUED BY PROVIDE R 10/03/2024 [id number] JOSE WIGGINS F 2023 90 [place] LOS[place]AN 50MG TAB TAKE ONE TABLET BY MOUTH ONCE DAILY NOTE DIRECTIO NS AND NEW TABLET STRENGTH ORAL DISCONT INUED 11/02/2023 [id number] JOSE WIGGINS F 2022 90 [place] MEMANTINE HCL 5MG TAB TAKE ONE TABLET BY MOUTH TWICE DAILY ORAL DISCONT INUED 01/31/2024 [id number] RAÚL RODRÍGUEZ 2022 60 [facility] METOPROLOL SUCCINATE 25MG TAB,SA TAKE ONE TABLET BY MOUTH ONCE DAILY FOR BLOOD PRESSURE /HEART ORAL ACTIVE 05/16/2025 [id number] Rao DUTTA 2023 90 [facility] IELD METOPROLOL SUCCINATE 25MG TAB,SA TAKE ONE TABLET BY MOUTH ONCE DAILY FOR BLOOD PRESSURE /HEART ORAL DISCONT INUED 05/14/2024 [id number] 4 JOSE WIGGINS RMEN F 2022 90 [facility] IELD MULTIVITAMI NS W/MINERALS TAB TAKE ONE TABLET BY MOUTH DAILY ORAL ACTIVE Mike MARROQUIN 2006 [facility] IELD Allergies, Adverse Reactions, Alerts Combined list of allergies from Department of Defense and Veterans Affairs facilities. It does not include entries that were removed or entered in error. Substance Category Reaction Severity Reaction type Status Date Reported Comments Source CODEINE Propensity to adverse reaction (finding) [facility] PNEUMOVAX 23 Propensity to adverse reactions to drug (finding) Urticaria active 2 [facility] Immunizations Combined list of available immunizations from the Department of Defense and Veterans Affairs facilities. Immunization Series Date Given Administered By Site Reaction Lot Number CVX Code Drug Sewer And Drain Technician Status Comments Source INFLUENZA, UNSPECIFIED FORMULATION 2023 88 complet ed [facility] INFLUENZA, UNSPECIFIED FORMULATION [address] [facility] INFLUENZA VACCINE, QUADRIVALENT, ADJUVANTED 2021 205 complet ed [facility] IELD COVID-19 (Savveo), MRNA, LNP-S, PF, 30 MCG/0.3 ML DOSE 3 2020 208 complet ed [place] [facility] [place] [facility] INFLUENZA VACCINE, QUADRIVALENT, ADJUVANTED 2020 205 complet ed [facility] ZOSTER RECOMBINANT 2 2020 187 complet ed [place] COVID-19 (PFIZER), MRNA, LNP-S, PF, 30 MCG/0.3 ML DOSE 2 2020 208 complet ed [facility] COVID-19 (PFIZER), MRNA, LNP-S, PF, 30 MCG/0.3 ML DOSE 1 2020 208 complet ed [facility] ZOSTER RECOMBINANT 1 2019 187 complet ed [place] INFLUENZA, INJECTABLE, QUADRIVALENT, PRESERVATIVE FREE 2019 150 complet ed [facility] INFLUENZA, INJECTABLE, QUADRIVALENT, PRESERVATIVE FREE 2018 150 complet ed Site: Right Deltoid [facility] INFLUENZA, INJECTABLE, QUADRIVALENT 2017 158 complet ed Site: Left Deltoid [place] FLU,3 YRS (HISTORICAL) 2016 88 complet ed Site: Left Deltoid [place] FLU,3 YRS (HISTORICAL) 2015 88 complet ed [facility] FLU,3 YRS (HISTORICAL) 2014 88 complet ed Site: Left Deltoid [place] FLU,3 YRS (HISTORICAL) 2013 88 complet ed Site: Left Deltoid [place] DTAP, UNSPECIFIED FORMULATION 2013 107 complet ed Site: Left Deltoid [place] FLU,3 YRS (HISTORICAL) 2012 88 complet ed [facility] FLU,3 YRS (HISTORICAL) 2011 88 complet ed [facility] FLU,3 YRS (HISTORICAL) 2010 88 complet ed Site: Left Deltoid [place] FLU,3 YRS (HISTORICAL) 2009 88 complet ed [facility] NOVEL INFLUENZA-H1N 1-09, ALL FORMULATIONS 2009 128 complet ed [facility] FLU,3 YRS (HISTORICAL) 2008 88 complet ed Site: Right Deltoid [place] FLU,3 YRS (HISTORICAL) 2007 88 complet ed Pt. went to [facility] for her vaccine!! [facility] FLU,3 YRS (HISTORICAL) 2006 88 complet ed [facility] FLU,3 YRS (HISTORICAL) 2005 88 complet ed [place] FLU VACCINE (HISTORICAL) 2004 88 complet ed [place] FLU,3 YRS (HISTORICAL) 2003 EJ CALVIN 88 complet ed [place] TD(ADULT) UNSPECIFIED FORMULATION 2002 JOSE POLLARD NN H 139 complet ed [place] PNEUMOCOCCAL, UNSPECIFIED FORMULATION 2001 109 complet ed [facility] Results Combined list of recent chemistry, hematology and other laboratory results from Department of Defense and Veterans Affairs, ranging from 15 months to all on record, depending upon the facility. Order Name Results Value Reference Range Date Interpretation Specimen Comments Source BASIC METABOLIC PANEL (fasting) UREA NITROGEN [MASS/VOLUM E] IN SERUM OR PLASMA 26 mg/dL 7 - 25 10/06 H Specimen Type: SERUM No comment entered. Ordering Provider: SATYA WIGGINS Report Released Date/Time: September 25, 2023 08:53 AM Reporting Lab: [address] [address] Performing Lab: [address] [address] [place] BASIC METABOLIC PANEL (fasting) GLUCOSE [MASS/VOLUM E] IN SERUM OR PLASMA 88 mg/dL 65 - 100 10/06 Specimen Type: SERUM No comment entered. Ordering Provider: SATYA WIGGINS Report Released Date/Time: September 25, 2023 08:53 AM Reporting Lab: [facility] [address] [facility] [address] Performing Lab: [address] [address] [place] BASIC METABOLIC PANEL (fasting) SODIUM [MOLES/VOLU ME] IN SERUM OR PLASMA 140 mmol/L 135 - 145 10/06 Specimen Type: SERUM No comment entered. Ordering Provider: SATYA WIGGINS Report Released Date/Time: September 25, 2023 08:53 AM Reporting Lab: [facility] [address] [address] Performing Lab: [facility] [address] [place] BASIC METABOLIC PANEL (fasting) POTASSIUM [MOLES/VOLU ME] IN SERUM OR PLASMA 4.1 mmol/L 3.5 - 5.0 10/06 Specimen Type: SERUM No comment entered. Ordering Provider: SATYA WIGGINS Report Released Date/Time: September 25, 2023 08:53 AM Reporting Lab: [facility] [address] [address] Performing Lab: [facility] [address] [address] [place] BASIC METABOLIC PANEL (fasting) CHLORIDE [MOLES/VOLU ME] IN SERUM OR PLASMA 105 mmol/L 100 - 110 10/06 Specimen Type: SERUM No comment entered. Ordering Provider: SATYA WIGGINS Report Released Date/Time: September 25, 2023 08:53 AM Reporting Lab: [facility] [address] [address] Performing Lab: [facility] [address] [address] [place] BASIC METABOLIC PANEL (fasting) CARBON DIOXIDE, TOTAL [MOLES/VOLU ME] IN SERUM OR PLASMA 23 meq/L 20 - 30 10/06 Specimen Type: SERUM No comment entered. Ordering Provider: SATYA WIGGINS Report Released Date/Time: September 25, 2023 08:53 AM Reporting Lab: [facility] [address] Performing Lab: [facility] [address] [place] BASIC METABOLIC PANEL (fasting) CREATININE [MASS/VOLUM E] IN SERUM OR PLASMA 1.75 mg/dL 0.50 - 1.40 10/06 H Specimen Type: SERUM No comment entered. Ordering Provider: SATYA WIGGINS Report Released Date/Time: September 25, 2023 08:53 AM Reporting Lab: [facility] [address] [address] Performing Lab: [facility] [address] [address] [place] BASIC METABOLIC PANEL (fasting) GLOMERULAR FILTRATION RATE/1.73 SQ M.PREDICTED [VOLUME RATE/AREA] IN SERUM, PLASMA OR BLOOD BY CREATININE- BASED FORMULA (CKD-EPI 2020) 28 mL/min 60 10/06 L Specimen Type: SERUM No comment entered. Ordering Provider: SATYA WIGGINS Report Released Date/Time: September 25, 2023 08:53 AM Reporting Lab: [facility] [address] [address] Performing Lab: [facility] [address] [place] CBC AND DIFF (AUTO) LEUKOCYTES [#/VOLUME] IN BLOOD BY AUTOMATED COUNT 5.84 10*3/u L 4.50 - 11.00 10/06 Specimen Type: BLOOD No comment entered. Ordering Provider: SATYA WIGGINS Report Released Date/Time: September 25, 2023 08:53 AM Reporting Lab: [facility] [address] [address] Performing Lab: [facility] [address] [address] [place] CBC AND DIFF (AUTO) ERYTHROCYTE S [#/VOLUME] IN BLOOD BY AUTOMATED COUNT 4.14 10*6/u L 3.93 - 5.16 10/06 Specimen Type: BLOOD No comment entered. Ordering Provider: SATYA WIGGINS Report Released Date/Time: September 25, 2023 08:53 AM Reporting Lab: [facility] [address] [address] Performing Lab: [facility] [address] [place] CBC AND DIFF (AUTO) HEMOGLOBIN [MASS/VOLUM E] IN BLOOD 12.9 g/dL 12 - 15.2 10/06 Specimen Type: BLOOD No comment entered. Ordering Provider: SATYA WIGGINS Report Released Date/Time: September 25, 2023 08:53 AM Reporting Lab: [facility] [place] [address] [address] Performing Lab: [facility] [place] [address] [address] [place] CBC AND DIFF (AUTO) HEMATOCRIT [VOLUME FRACTION] OF BLOOD BY AUTOMATED COUNT 38.6 36.6 - 45.6 10/06 Specimen Type: BLOOD No comment entered. Ordering Provider: SATYA WIGGINS Report Released Date/Time: September 25, 2023 08:53 AM Reporting Lab: [facility] [place] [address] [address] Performing Lab: [facility] [place] [address] [address] [place] CBC AND DIFF (AUTO) MCV [ENTITIC VOLUME] BY AUTOMATED COUNT 93.2 fL 82 - 99 10/06 Specimen Type: BLOOD No comment entered. Ordering Provider: SATYA WIGGINS Report Released Date/Time: September 25, 2023 08:53 AM Reporting Lab: [facility] [place] [address] [address] Performing Lab: [facility] [place] [address] [address] [place] CBC AND DIFF (AUTO) MCHC [MASS/VOLUM E] BY AUTOMATED COUNT 33.4 g/dL 30.8 - 35.1 10/06 Specimen Type: BLOOD No comment entered. Ordering Provider: SATYA WIGGINS Report Released Date/Time: September 25, 2023 08:53 AM Reporting Lab: [facility] [address] [address] Performing Lab: [facility] [place] [address] [address] [place] CBC AND DIFF (AUTO) PLATELETS [#/VOLUME] IN BLOOD BY AUTOMATED COUNT 162 10*3/u L 140 - 360 10/06 Specimen Type: BLOOD No comment entered. Ordering Provider: SATYA WIGGINS Report Released Date/Time: September 25, 2023 08:53 AM Reporting Lab: [facility] [place] [address] [address] Performing Lab: [facility] [place] [address] [address] [place] CBC AND DIFF (AUTO) ERYTHROCYTE DISTRIBUTIO N WIDTH [RATIO] BY AUTOMATED COUNT 13.5 12.0 - 16.0 10/06 Specimen Type: BLOOD No comment entered. Ordering Provider: SATYA WIGGINS Report Released Date/Time: September 25, 2023 08:53 AM Reporting Lab: [facility] [place] [address] [address] Performing Lab: [facility] [place] [address] [address] [place] CBC AND DIFF (AUTO) MONOCYTES [#/VOLUME] IN BLOOD BY AUTOMATED COUNT 0.50 10*3/u L 0.30 - 1.10 10/06 Specimen Type: BLOOD No comment entered. Ordering Provider: SATYA WIGGINS Report Released Date/Time: September 25, 2023 08:53 AM Reporting Lab: [facility] [place] [address] [address] Performing Lab: [facility] [place] [address] [address] [place] CBC AND DIFF (AUTO) MCH [ENTITIC MASS] BY AUTOMATED COUNT 31.2 pg 26.2 - 32.6 10/06 Specimen Type: BLOOD No comment entered. Ordering Provider: SATYA WIGGINS Report Released Date/Time: September 25, 2023 08:53 AM Reporting Lab: [facility] [place] [address] [address] Performing Lab: [facility] [place] [address] [address] [place] CBC AND DIFF (AUTO) NEUTROPHILS /100 LEUKOCYTES IN BLOOD BY AUTOMATED COUNT 64.2 43.7 - 75.8 10/06 Specimen Type: BLOOD No comment entered. Ordering Provider: SATYA WIGGINS Report Released Date/Time: September 25, 2023 08:53 AM Reporting Lab: [facility] [place] [address] [address] Performing Lab: [facility] [place] [address] [address] [place] CBC AND DIFF (AUTO) LYMPHOCYTES /100 LEUKOCYTES IN BLOOD BY AUTOMATED COUNT 25.2 14.0 - 42.3 10/06 Specimen Type: BLOOD No comment entered. Ordering Provider: SATYA WIGGINS Report Released Date/Time: September 25, 2023 08:53 AM Reporting Lab: [facility] [place] [address] [address] Performing Lab: [facility] [place] [address] [address] [place] CBC AND DIFF (AUTO) MONOCYTES/1 00 LEUKOCYTES IN BLOOD BY AUTOMATED COUNT 8.6 5.1 - 13.7 10/06 Specimen Type: BLOOD No comment entered. Ordering Provider: SATYA WIGGINS Report Released Date/Time: September 25, 2023 08:53 AM Reporting Lab: [facility] [place] [address] [address] Performing Lab: [facility] [place] [address] [address] [place] CBC AND DIFF (AUTO) EOSINOPHILS /100 LEUKOCYTES IN BLOOD BY AUTOMATED COUNT 1.0 0.4 - 6.8 10/06 Specimen Type: BLOOD No comment entered. Ordering Provider: SATYA WIGGINS Report Released Date/Time: September 25, 2023 08:53 AM Reporting Lab: [facility] [place] [address] [address] Performing Lab: [facility] [place] [address] [address] [place] CBC AND DIFF (AUTO) BASOPHILS/1 00 LEUKOCYTES IN BLOOD BY AUTOMATED COUNT 0.7 0.1 - 2.0 10/06 Specimen Type: BLOOD No comment entered. Ordering Provider: SATYA WIGGINS Report Released Date/Time: September 25, 2023 08:53 AM Reporting Lab: [facility] [address] [address] Performing Lab: [facility] [address] [address] [place] CBC AND DIFF (AUTO) NEUTROPHILS [#/VOLUME] IN BLOOD BY AUTOMATED COUNT 3.75 10*3/u L 2.20 - 7.60 10/06 Specimen Type: BLOOD No comment entered. Ordering Provider: SATYA WIGGINS Report Released Date/Time: September 25, 2023 08:53 AM Reporting Lab: [facility] [address] [address] Performing Lab: [facility] [place] [address] [address] [place] CBC AND DIFF (AUTO) LYMPHOCYTES [#/VOLUME] IN BLOOD BY AUTOMATED COUNT 1.47 10*3/u L 1.00 - 3.20 10/06 Specimen Type: BLOOD No comment entered. Ordering Provider: SATYA WIGGINS Report Released Date/Time: September 25, 2023 08:53 AM Reporting Lab: [facility] [place] [address] [address] Performing Lab: [facility] [place] [address] [address] [place] CBC AND DIFF (AUTO) EOSINOPHILS [#/VOLUME] IN BLOOD BY AUTOMATED COUNT 0.06 10*3/u L 0.03 - 0.44 10/06 Specimen Type: BLOOD No comment entered. Ordering Provider: SATYA WIGGINS Report Released Date/Time: September 25, 2023 08:53 AM Reporting Lab: [facility] [address] [address] Performing Lab: [address] [address] [place] CBC AND DIFF (AUTO) BASOPHILS [#/VOLUME] IN BLOOD BY AUTOMATED COUNT 0.04 10*3/u L 0.01 - 0.13 10/06 Specimen Type: BLOOD No comment entered. Ordering Provider: SATYA WIGGINS Report Released Date/Time: September 25, 2023 08:53 AM Reporting Lab: [address] [address] Performing Lab: [address] [address] [place] CBC AND DIFF (AUTO) IMMATURE GRANULOCYTE S/100 LEUKOCYTES IN BLOOD BY AUTOMATED COUNT 0.3 0.0 - 0.7 10/06 Specimen Type: BLOOD No comment entered. Ordering Provider: SATYA WIGGINS Report Released Date/Time: September 25, 2023 08:53 AM Reporting Lab: [address] [address] Performing Lab: [address] [address] [place] CBC AND DIFF (AUTO) IMMATURE GRANULOCYTE S [#/VOLUME] IN BLOOD 0.02 10*3/u L 0.00 - 0.06 10/06 Specimen Type: BLOOD No comment entered. Ordering Provider: SATYA WIGGINS Report Released Date/Time: September 25, 2023 08:53 AM Reporting Lab: [address] [address] Performing Lab: [address] [address] [place] HEMOGLOBI N A1C PANEL HEMOGLOBIN A1C/HEMOGLO BIN.TOTAL IN BLOOD BY HPLC 5.5 4.0 - 5.6 10/06 Specimen Type: BLOOD Comment: Values obtained from A1C measurement s can vary. For atypical A1C assays, a reported value of 7.0 could actually be between 6.72 and 7.28 if measured by a reference method. A reported value of 9.0 could actually be between 8.73 and 9.27. Ref: [email or web address] Ordering Provider: SATYA WIGGINS Report Released Date/Time: September 25, 2023 08:53 AM Reporting Lab: [facility] [address] [address] Performing Lab: [facility] [address] [address] [place] LIPID PANEL FASTING CHOLESTEROL [MASS/VOLUM E] IN SERUM OR PLASMA 206 mg/dL 10/06 H Specimen Type: SERUM No comment entered. Ordering Provider: SATYA WIGGINS Report Released Date/Time: September 25, 2023 08:53 AM Reporting Lab: [address] [address] Performing Lab: [address] [address] [place] LIPID PANEL FASTING TRIGLYCERID E [MASS/VOLUM E] IN SERUM OR PLASMA 71 mg/dL 0 - 150 10/06 Specimen Type: SERUM No comment entered. Ordering Provider: SATYA WIGGINS Report Released Date/Time: September 25, 2023 08:53 AM Reporting Lab: [facility] [address] [address] Performing Lab: [address] [address] [place] LIPID PANEL FASTING CHOLESTEROL IN LDL [MASS/VOLUM E] IN SERUM OR PLASMA BY CALCULATION 98 mg/dL 0 - 129 10/06 Specimen Type: SERUM No comment entered. Ordering Provider: SATYA WIGGINS Report Released Date/Time: September 25, 2023 08:53 AM Reporting [facility]: [facility] [address] [address] Performing Lab: [facility] [address] [address] [place] LIPID PANEL FASTING CHOLESTEROL .TOTAL/CHOL ESTEROL IN HDL [MASS RATIO] IN SERUM OR PLASMA 2.2 10/06 Specimen Type: SERUM No comment entered. Ordering Provider: SATYA WIGGINS Report Released Date/Time: September 25, 2023 08:53 AM Reporting Lab: [facility] [address] [facility] [address] Performing Lab: [facility] [address] [address] [place] PANEL FASTING CHOLESTEROL IN HDL [MASS/VOLUM E] IN SERUM OR PLASMA 94 mg/dL 40 - 60 10/06 H Specimen Type: SERUM No comment entered. Ordering Provider: SATYA WIGGINS Report Released Date/Time: September 25, 2023 08:53 AM Reporting Lab: [facility]USE[address] [address] Performing Lab: [facility]USE[address] [address] [place] LIVER FUNCTION PROTEIN [MASS/VOLUM E] IN SERUM OR PLASMA 7.0 g/dL 6.0 - 8.3 10/06 Specimen Type: SERUM No comment entered. Ordering Provider: SATYA WIGGINS Report Released Date/Time: September 25, 2023 08:53 AM Reporting Lab: [facility]N [facility]ITALUSE[address] [address] Performing Lab: [facility]N [facility] HOSPITALUSETS [address] [address] [place] LIVER FUNCTION ALBUMIN [MASS/VOLUM E] IN SERUM OR PLASMA 4.2 g/dL 3.5 - 5.0 10/06 Specimen Type: SERUM No comment entered. Ordering Provider: SATYA WIGGINS Report Released Date/Time: September 25, 2023 08:53 AM Reporting Lab: [facility]SONRMARY [facility]ENTERTRN [facility] HOSPITALUSETS [address] [address] Performing Lab: [facility]N [facility]ITALUSE[address] [address] [place] LIVER FUNCTION ALKALINE PHOSPHATASE [ENZYMATIC ACTIVITY/VO LUME] IN SERUM OR PLASMA 95 U/L 40 - 150 10/06 Specimen Type: SERUM No comment entered. Ordering Provider: SATYA WIGGINS Report Released Date/Time: September 25, 2023 08:53 AM Reporting Lab: [facility] [address] [address] Performing Lab: [facility] [address] [address] [place] LIVER FUNCTION ASPARTATE AMINOTRANSF ERASE [ENZYMATIC ACTIVITY/VO LUME] IN SERUM OR PLASMA 31 U/L 5 - 34 10/06 Specimen Type: SERUM No comment entered. Ordering Provider: SATYA WIGGINS Report Released Date/Time: September 25, 2023 08:53 AM Reporting Lab: [facility] [address] [address] Performing Lab: [facility] [address] [address] [place] LIVER FUNCTION ALANINE AMINOTRANSF ERASE [ENZYMATIC ACTIVITY/VO LUME] IN SERUM OR PLASMA 20 U/L 10/06 Specimen Type: SERUM No comment entered. Ordering Provider: SATYA WIGGINS Report Released Date/Time: September 25, 2023 08:53 AM Reporting Lab: [facility] [address] [address] Performing Lab: [facility] [address] [address] [place] LIVER FUNCTION BILIRUBIN.T OTAL [MASS/VOLUM E] IN SERUM OR PLASMA 1.0 mg/dL 0.2 - 1.2 10/06 Specimen Type: SERUM No comment entered. Ordering Provider: SATYA WIGGINS Report Released Date/Time: September 25, 2023 08:53 AM Reporting Lab: [facility] [address] [address] Performing Lab: [facility]RL [facility]ITALUSE[address] [address] [place] TSH THYROTROPIN [UNITS/VOLU ME] IN SERUM OR PLASMA 3.85 u[IU]/ mL 0.35 - 5.00 10/06 Specimen Type: SERUM No comment entered. Ordering Provider: SATYA WIGGINS Report Released Date/Time: September 25, 2023 08:53 AM Reporting Lab: [facility]RMARY [facility] CENTERTRN [facility] [address] [facility] [address] Performing Lab: [facility]PITALN [facility] [address] [facility] [address] [place] BASIC METABOLIC PANEL (fasting) UREA NITROGEN [MASS/VOLUM E] IN SERUM OR PLASMA 31 mg/dL 7 - 25 05/28 H Specimen Type: SERUM No comment entered. Ordering Provider: SATYA WIGGINS Report Released Date/Time: May 15, 2023 10:16 AM Reporting Lab: [facility] [address] [address] Performing Lab: [facility] [address] [address] [place] BASIC METABOLIC PANEL (fasting) GLUCOSE [MASS/VOLUM E] IN SERUM OR PLASMA 94 mg/dL 65 - 100 05/28 Specimen Type: SERUM No comment entered. Ordering Provider: SATYA WIGGINS Report Released Date/Time: May 15, 2023 10:16 AM Reporting Lab: [facility] [address] [address] Performing Lab: [facility]PITALN [address] [address] [place] BASIC METABOLIC PANEL (fasting) SODIUM [MOLES/VOLU ME] IN SERUM OR PLASMA 139 mmol/L 135 - 145 05/28 Specimen Type: SERUM No comment entered. Ordering Provider: SATYA WIGGINS Report Released Date/Time: May 15, 2023 10:16 AM Reporting Lab: [facility]RMARY [facility] CENTERTRN [address] [address] Performing Lab: [facility]ITALN [address] [address] [place] BASIC METABOLIC PANEL (fasting) POTASSIUM [MOLES/VOLU ME] IN SERUM OR PLASMA 4.0 mmol/L 3.5 - 5.0 01/03 /2024 Specimen Type: SERUM No comment entered. Ordering Provider: SATYA WIGGINS Report Released Date/Time: May 15, 2023 10:16 AM Reporting Lab: [facility]RM[facility] CENTERTRN [facility] [address] [facility] [address] Performing Lab: [facility]SONRMARY [facility]ENTERTRN [facility]ITALUSECL[facility] [address] [facility] [address] [place] BASIC METABOLIC PANEL (fasting) CHLORIDE [MOLES/VOLU ME] IN SERUM OR PLASMA 106 mmol/L 100 - 110 05/28 Specimen Type: SERUM No comment entered. Ordering Provider: SATYA WIGGINS Report Released Date/Time: May 15, 2023 10:16 AM Reporting Lab: [facility]PITALN [address] [address] Performing Lab: [facility]ITALN [address] [address] [place] BASIC METABOLIC PANEL (fasting) CARBON DIOXIDE, TOTAL [MOLES/VOLU ME] IN SERUM OR PLASMA 23 meq/L 20 - 30 05/28 Specimen Type: SERUM No comment entered. Ordering Provider: SATYA WIGGINS Report Released Date/Time: May 15, 2023 10:16 AM Reporting Lab: [facility] HOSPITALN [facility] [address] [facility] [address] Performing Lab: [facility]ITALN [facility]ITALUSE[address] [address] [place] BASIC METABOLIC PANEL (fasting) CREATININE [MASS/VOLUM E] IN SERUM OR PLASMA 1.51 mg/dL 0.50 - 1.40 05/28 H Specimen Type: SERUM No comment entered. Ordering Provider: SATYA WIGGINS Report Released Date/Time: May 15, 2023 10:16 AM Reporting Lab: [facility]SONRMARY [facility]ENTERTRN [facility]ITALUSE[address] [address] Performing Lab: [facility]SONRMARY [facility]ENTERTRN [facility]ITALUSE[address] [address] [place] BASIC METABOLIC PANEL (fasting) GLOMERULAR FILTRATION RATE/1.73 SQ M.PREDICTED [VOLUME RATE/AREA] IN SERUM, PLASMA OR BLOOD BY CREATININE- BASED FORMULA (CKD-EPI 2020) 33 mL/min 60 05/28 L Specimen Type: SERUM No comment entered. Ordering Provider: SATYA WIGGINS Report Released Date/Time: May 15, 2023 10:16 AM Reporting Lab: [facility] [place] [address] [address] Performing Lab: [facility]ITAL[facility] [address] [address] [place] CBC LEUKOCYTES [#/VOLUME] IN BLOOD BY AUTOMATED COUNT 4.79 10*3/u L 4.50 - 11.00 05/28 Specimen Type: BLOOD No comment entered. Ordering Provider: SATYA WIGGINS Report Released Date/Time: May 15, 2023 10:16 AM Reporting Lab: [facility]SONRL [facility]N [facility]ITALUSE[address] [address] Performing Lab: [facility] JACKSONRL TRN [facility]PITALUSETS [address] [address] [place] CBC ERYTHROCYTE S [#/VOLUME] IN BLOOD BY AUTOMATED COUNT 4.00 10*6/u L 3.93 - 5.16 05/28 Specimen Type: BLOOD No comment entered. Ordering Provider: SATYA WIGGINS Report Released Date/Time: May 15, 2023 10:16 AM Reporting Lab: [facility]SONRL [facility]N [facility]ITALUS[facility] [address] [address] Performing Lab: [facility]SONRL WSTRN [facility] [address] [address] [place] CBC HEMOGLOBIN [MASS/VOLUM E] IN BLOOD 12.5 g/dL 12 - 15.2 05/28 Specimen Type: BLOOD No comment entered. Ordering Provider: SATYA WIGGINS Report Released Date/Time: May 15, 2023 10:16 AM Reporting Lab: [facility] [address] [address] Performing Lab: [facility]SONRL TRN [facility]ITALUSETS [address] [address] [place] CBC HEMATOCRIT [VOLUME FRACTION] OF BLOOD BY AUTOMATED COUNT 38.1 36.6 - 45.6 05/28 Specimen Type: BLOOD No comment entered. Ordering Provider: SATYA WIGGINS Report Released Date/Time: May 15, 2023 10:16 AM Reporting Lab: [facility] [place] [address] [address] Performing Lab: [facility] [address] [address] [place] CBC MCV [ENTITIC VOLUME] BY AUTOMATED COUNT 95.3 fL 82 - 99 05/28 Specimen Type: BLOOD No comment entered. Ordering Provider: SATYA WIGGINS Report Released Date/Time: May 15, 2023 10:16 AM Reporting Lab: [facility] [place] [address] [address] Performing Lab: [facility] [place] [address] [address] [place] CBC MCHC [MASS/VOLUM E] BY AUTOMATED COUNT 32.8 g/dL 30.8 - 35.1 05/28 Specimen Type: BLOOD No comment entered. Ordering Provider: SATYA WIGGINS Report Released Date/Time: May 15, 2023 10:16 AM Reporting Lab: [facility] [place] [address] [address] Performing Lab: [facility] [place] [address] [address] [place] CBC PLATELETS [#/VOLUME] IN BLOOD BY AUTOMATED COUNT 161 10*3/u L 140 - 360 05/28 Specimen Type: BLOOD No comment entered. Ordering Provider: SATYA WIGGINS Report Released Date/Time: May 15, 2023 10:16 AM Reporting Lab: [facility] [place] [address] [address] Performing Lab: [facility] [place] [address] [address] [place] CBC ERYTHROCYTE DISTRIBUTIO N WIDTH [RATIO] BY AUTOMATED COUNT 13.2 12.0 - 16.0 05/28 Specimen Type: BLOOD No comment entered. Ordering Provider: SATYA WIGGINS Report Released Date/Time: May 15, 2023 10:16 AM Reporting Lab: [facility]ITALN [address] [address] Performing Lab: [facility] [address] [address] [place] CBC MCH [ENTITIC MASS] BY AUTOMATED COUNT 31.3 pg 26.2 - 32.6 05/28 Specimen Type: BLOOD No comment entered. Ordering Provider: SATYA WIGGINS Report Released Date/Time: May 15, 2023 10:16 AM Reporting Lab: [facility] [address] [address] Performing Lab: [facility] [address] [address] [place] LIPID PANEL FASTING CHOLESTEROL [MASS/VOLUM E] IN SERUM OR PLASMA 179 mg/dL 05/28 Specimen Type: SERUM No comment entered. Ordering Provider: SATYA WIGGINS Report Released Date/Time: May 15, 2023 10:16 AM Reporting Lab: [facility] [address] [address] Performing Lab: [facility] [address] [address] [place] LIPID PANEL FASTING TRIGLYCERID E [MASS/VOLUM E] IN SERUM OR PLASMA 57 mg/dL 0 - 150 05/28 Specimen Type: SERUM No comment entered. Ordering Provider: SATYA WIGGINS Report Released Date/Time: May 15, 2023 10:16 AM Reporting Lab: [facility]SONRM[facility] CENTERTRN [address] [address] Performing Lab: [facility] [address] [address] [place] LIPID PANEL FASTING CHOLESTEROL IN LDL [MASS/VOLUM E] IN SERUM OR PLASMA BY CALCULATION 94 mg/dL 0 - 129 05/28 Specimen Type: SERUM No comment entered. Ordering Provider: SATYA WIGGINS Report Released Date/Time: May 15, 2023 10:16 AM Reporting Lab: [facility] [place] [facility] [address] [facility] [address] Performing Lab: [facility] [place] [facility] [address] [facility] [address] [place] LIPID PANEL FASTING CHOLESTEROL .TOTAL/CHOL ESTEROL IN HDL [MASS RATIO] IN SERUM OR PLASMA 2.4 05/28 Specimen Type: SERUM No comment entered. Ordering Provider: SATYA WIGGINS Report Released Date/Time: May 15, 2023 10:16 AM Reporting Lab: [facility] [place] [facility] [address] [facility] [address] Performing Lab: [facility] [place] [address] [address] [place] LIPID PANEL FASTING CHOLESTEROL IN HDL [MASS/VOLUM E] IN SERUM OR PLASMA 74 mg/dL 40 - 60 05/28 H Specimen Type: SERUM No comment entered. Ordering Provider: SATYA WIGGINS Report Released Date/Time: May 15, 2023 10:16 AM Reporting Lab: [facility] [place] [facility] [address] [facility] [address] Performing Lab: [facility] [place] [address] [address] [place] LIVER FUNCTION PROTEIN [MASS/VOLUM E] IN SERUM OR PLASMA 6.8 g/dL 6.0 - 8.3 05/28 Specimen Type: SERUM No comment entered. Ordering Provider: SATYA WIGGINS Report Released Date/Time: May 15, 2023 10:16 AM Reporting Lab: [facility] [place] [facility] [address] [facility] [address] Performing Lab: [facility] [place] [address] [address] [place] LIVER FUNCTION ALBUMIN [MASS/VOLUM E] IN SERUM OR PLASMA 4.1 g/dL 3.5 - 5.0 05/28 Specimen Type: SERUM No comment entered. Ordering Provider: SATYA WIGGINS Report Released Date/Time: May 15, 2023 10:16 AM Reporting Lab: [facility] [place] [facility] [address] [facility] [address] Performing Lab: [facility] [place] [facility] [address] [facility] [address] [place] LIVER FUNCTION ALKALINE PHOSPHATASE [ENZYMATIC ACTIVITY/VO LUME] IN SERUM OR PLASMA 108 U/L 40 - 150 05/28 Specimen Type: SERUM No comment entered. Ordering Provider: SATYA WIGGINS Report Released Date/Time: May 15, 2023 10:16 AM Reporting Lab: [facility] [place] [facility] [address] [facility] [address] Performing Lab: [facility] [place] [address] [address] [place] LIVER FUNCTION ASPARTATE AMINOTRANSF ERASE [ENZYMATIC ACTIVITY/VO LUME] IN SERUM OR PLASMA 30 U/L 5 - 34 05/28 Specimen Type: SERUM No comment entered. Ordering Provider: SATYA WIGGINS Report Released Date/Time: May 15, 2023 10:16 AM Reporting Lab: [facility] [place] [facility] [address] [facility] [address] Performing Lab: [facility] [place] [address] [address] [place] LIVER FUNCTION ALANINE AMINOTRANSF ERASE [ENZYMATIC ACTIVITY/VO LUME] IN SERUM OR PLASMA 23 U/L 05/28 Specimen Type: SERUM No comment entered. Ordering Provider: SATYA WIGGINS Report Released Date/Time: May 15, 2023 10:16 AM Reporting Lab: [facility] [place] [address] [address] Performing Lab: [facility] [place] [address] [address] [place] LIVER FUNCTION BILIRUBIN.T OTAL [MASS/VOLUM E] IN SERUM OR PLASMA 0.7 mg/dL 0.2 - 1.2 05/28 Specimen Type: SERUM No comment entered. Ordering Provider: SATYA WIGGINS Report Released Date/Time: May 15, 2023 10:16 AM Reporting Lab: [facility] [place] [facility] [address] [facility] [address] Performing Lab: [facility] [place] [facility] [address] [facility] [address] [facility] Vital Signs Combined list of inpatient and outpatient Vital Signs from Department of Defense and Veterans Affairs, ranging from 12 months to all on record, depending upon the facility. Vital Sign Value Date Comments Source SYSTOLIC BLOOD PRESSURE 118 04/07/20 14:38:14 [facility] DIASTOLIC BLOOD PRESSURE 75 14:38:14 [facility] PULSE OXIMETRY 97 04/07/2024 14:38:14 [facility] WEIGHT 122 04/07/2024 14:38:14 [facility] BMI 21kg/m2 04/07/2024 14:38:14 [facility] HEIGHT 64 04/07/2024 14:38:14 [facility] TEMPERATURE 97.7 04/07/2024 14:38:14 [facility] PULSE 83 04/07/2024 14:38:14 [facility] RESPIRATION 18 04/07/2024 14:38:14 [facility] SYSTOLIC BLOOD PRESSURE 169 03/02/20 14:07:46 [facility] [place] [facility] DIASTOLIC BLOOD PRESSURE 81 14:07:46 [facility] [place] [facility] PULSE OXIMETRY 98 03/02/2024 14:07:46 [facility] WEIGHT 121 03/02/2024 14:07:46 [facility] BMI 21kg/m2 03/02/2024 14:07:46 [facility] PAIN 0 03/02/2024 14:07:46 [facility] TEMPERATURE 97 03/02/2024 14:07:46 [facility] PULSE 77 03/02/2024 14:07:46 [facility] RESPIRATION 16 03/02/2024 14:07:46 [facility] [place] [facility] SYSTOLIC BLOOD PRESSURE 149 10/07/19 24 10:41:24 [facility] DIASTOLIC BLOOD PRESSURE 92 10:41:24 [facility] PULSE OXIMETRY 97 10/07/2023 10:41:24 [facility] PULSE 77 10/07/2023 10:41:24 [facility] Encounters Combined list of: 1) Encounters from Department of Veterans Affairs facilities going back up to thelast 18 months. 2) Encounters from the Department of Defense facilities going back up to 280 months. Location Location Details Encounter Type Encounter Number Reason For Visit Attending Provider ADM Date DC Date Status Disposition Source [facility] Encounter [id number] 12/31 [facility] Encounter [id number] 01/02 [facility] CONFORMITY EVALUATION [id number] Diagnos is: ICD-10- CM Z46.1 Encount er for fitting and adjustm ent of hearing aid<br/ > ERNESTO BARRERA 01/02 [facility] En[facility] [id number] 01/21 [facility] En[facility] [id number] 01/30 [facility] QNHP OL DIG ASSMT&MGMT 5-10 [id number] Diagnos is: ICD-10- CM Z04.89 Encount er for examina tion and observa tion for oth reasons
RODRIGO WALDROP 03/13 [facility] En[facility] [id number] 03/14 [facility] Encounter [id number] 03/20 [facility] Encounter [id number] 03/26 [facility] Encounter [id number] 04/01 [facility] En[facility] [id number] 04/10 [facility] Encounter [id number] 04/16 [facility] Out[facility] Encounter [id number] 04/22 [facility] Encounter [id number] 05/12 [facility] En[facility] [id number] 05/20 [facility] [place] OFFICE O/P EST MOD 30 MIN [id number] Diagnos is: ICD-10- CM 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
DENI BLAS 01/04 /2024 [facility] (89GE) [facility] HEARING AID REPAIR/MOD IFYING [id number] Diagnos is: ICD-10- CM Z46.1 Encount er for fitting and adjustm ent of hearing aid<br/ > NANCY RUTHERFORD 06/20 [place] [facility] En[facility] [id number] 06/23 [facility] En[facility] [id number] 09/11 [facility] Encounter [id number] 09/30 [facility] [place] [place] [facility] OFFICE O/P EST MOD 30 MIN [id number] Diagnos is: ICD-10- CM 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<b r/> STELEA,CAR MEN F 10/06 [place] [facility] En[facility] [id number] 10/07 [facility] En[facility] [id number] 12/01 [facility] En[facility] [id number] 12/01 [facility] En[facility] [id number] 01/04 [facility] En[facility] [id number] 02/08 [facility] En[facility] [id number] [facility] HEARING AID FITTING/CH ECKING [id number] Diagnos is: ICD-10- CM H90.A31 Mix cndct/s nrl hear loss,un i,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
JACOBO VALDEZ 03/02 [facility] [id number] 1.03/10 [facility] [id number] 1.04/02 [facility] [place] [facility] O/P EST MOD 30 MIN [id number] 1BY. 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<b r/> CHARISSA DUTTA 04/07 [place] [facility] En[facility] [id number] CHARISSA DUTTA C 04/07 [facility] En[facility] [id number] 04/08 [facility] [id number] 04/21 [facility] [id number] 05/03 [facility] [id number] 05/03 [facility] En[facility] [id number] 05/13 [facility] [id number] 05/21 [facility] En[facility] [id number] 05/27 [facility] Social History Combined list of available smoking, tobacco, and other social history from Department of Defense and [facility] facilities. Social History Type Response Date Comment Sour e Tobacco smoking status [facility] VA-TOBACCO NEVER USED 05/28/2023 [facility] D History of tobacco use VA-TOBACCO NEVER USED 02/07/2022 [facility] D History of tobacco use VA-TOBACCO NEVER USED 03/08/2021 [facility] [place] [facility] History of tobacco use VA-TOBACCO NEVER USED 02/16/2020 [facility] D History of tobacco use VA-TOBACCO NEVER USED 03/10/2019 [facility] [place] [facility] History of tobacco use LIFETIME NON-TOBACCO USER 12/25/2017 [place] History of tobacco use LIFETIME NON-TOBACCO USER 11/11/2016 [place] History of tobacco use LIFETIME NON-TOBACCO USER 10/12/2015 [place] History of tobacco use LIFETIME NON-SMOKER 04/11/2005 [place] History of tobacco use LIFETIME NON-SMOKER 03/26/2004 [place] History of tobacco use LIFETIME NON-SMOKER 02/15/2003 [facility] History of tobacco use LIFETIME NON-SMOKER 11/04/2001 [place] Advance Directives List of completed, amended, or rescinded Advance Directives on record at [facility] of [facility] facilities. An actual copy of the Directive is not included. Date Advance Directive Provider Source 10/08/2019 ADVANCE DIRECTIVE GUYSYLVIESHANTI TERRAZAS 04/07/2013 ADVANCE DIRECTIVE KEANU HOLLOWAY [facility]
--- OUTSIDE RECORDS SUMMARY | 2024-06-23 13:00 | XMS_ITS | Encounter Summary ---
Author Name [facility] [place] Organization [facility] [place] [place] Address [address] [place] [id number] Care Team Providers Care Community Placement Worker Name Role Phone JIM DUTTA Primary Care [...] Quiros's Name Patient's Relationship to Policy Quiros [facility] () [facility] May 26, 2014 [facility] [id number] [phone] Kamar CLAUDIOCLEMSamra PATIENT [facility] ([facility]) MEDICARE ADVANTAGE [facility] ([facility] May 26, 2018 [facility] [id number] Kamar CLAUDIO PATIENT Selected Encounter This section includes the information on record at [place] for the Encounter. Date/Time Encounter Type Encounter Description Reason Provider Source Apr 07, 2024 02:30 PM OFFICE O/P EST MOD 30 MIN PRIMARY CARE/MEDICINE ICD-10-CM I10 Essential (primary) hypertension SAUMYA DUTTA Encounter Template Text not used by VA Assessments - Encounter Diagnoses This section includes the primary and secondary diagnoses documented for the Encounter. Date/Time Primary/Secondary Diagnosis Diagnosis Name Provider Source Apr 11, 2024 01:27 PM PRIMARY Essential (primary) hypertension JIM DUTTA Apr 11, 2024 01:27 PM SECONDARY Chronic kidney disease, stage 4 (severe) JIM DUTTA MANASSAS Apr 11, 2024 01:27 PM SECONDARY Hyperlipidemia, unspecified JIM DUTTA MANASSAS Apr 11, 2024 01:27 PM SECONDARY director long term care (current) use of anticoagulants JIM DUTTA MANASSAS Apr 11, 2024 01:27 PM SECONDARY Repeated falls JIM DUTTA MANASSAS Apr 11, 2024 01:27 PM SECONDARY Unspecified atrial fibrillation JIM DUTTA MANASSAS Apr 11, 2024 01:27 PM SECONDARY Unspecified hearing loss, bilateral JIM DUTTA MANASSAS Apr 11, 2024 01:27 PM SECONDARY Vascular dementia, unsp severity, without beh/psych/mood/anx JIM DUTTA Bradly MANASSAS Plan of Treatment: Future Appointments (+ 6 months) and Future Tests (+/- 45 days) The Plan of Treatment section includes future care activities for the patient from all [place] treatmentfacilities. This section includes future appointments and future orders which are active, pending or scheduled. Active, Pending, and Scheduled Orders This section includes a listing of several types of active, pending, and scheduled orders, including clinic medications orders, diagnostic test orders, procedure orders and consult orders; where the start date of the order is 45 days before the date of the Encounter or 45 days after the date of theEncounter. The data comes from all [place] treatment facilities. Test Date/Time Test Type Test Details Facility Name Mar 03, 2024 07:28 AM Consult Order COMMUNITY CARE-PHYSICAL THERAPY Cons Mobile Sales Expert's Choice [place] [facility] Vital Signs: All taken on the encounter date This section contains inpatient and outpatient Vital Signs collected on the date of the Encounter. Date/Time Temperature Pulse Blood Pressure Respiratory Rate SP02 Pain Height Weight Body Mass Index Source Apr 07, 2024 02:38 PM 97.7 83 118/75 18 97 64 122 21 [facility] Social History: Smoking Status (Most current) [...] place. Date/Time Current Smoking Status Comment Facil sweta May 28, 2023 09:30 AM VA-TOBACCO NEVER USED MANASSAS Tobacco Use History This section includes a history of the smoking, or tobacco-related health factors, that were collected on or before the date of the Encounter. The data comes from the [place] facility where the Encounter took place. Date/Time Smoking Status/Tobacco Use Comment Maykel acspenser Feb 07, 2022 12:30 PM MA-TOBACCO NEVER USED MANASSAS Feb 16, 2020 10:00 AM MA-TOBACCO NEVER USED MANASSAS Dec 25, 2017 09:25 AM LIFETIME NON-TOBACCO USER MANASSAS Nov 11, 2016 10:26 AM LIFETIME NON-TOBACCO USER MANASSAS October 12, 2015 01:32 PM LIFETIME NON-TOBACCO USER MANASSAS Apr 11, 2005 08:33 AM LIFETIME NON-SMOKER MANASSAS Mar 26, 2004 01:31 PM LIFETIME NON-SMOKER MANASSAS Feb 15, 2003 08:17 AM LIFETIME NON-SMOKER MANASSAS Nov 04, 2001 01:51 PM LIFETIME NON-SMOKER MANASSAS Nov 04, 2001 01:51 PM LIFETIME NON-TOBACCO USER MANASSAS Advance Directives: All historical and current Section Date Range: From patient's date of to the date document was created. This section includes ALL of a patient's completed or amended [place] Advance and Rescinded Directives. The entries below indicate that a directive exists for the patient, but an actual copy is not included with this document. The data comes from all [facility]. Date Advance Directives Provider Source October 08, 2019 ADVANCE DIRECTIVE SYLVIE TOVAR Apr 07, 2013 ADVANCE DIRECTIVE KEANU HOLLOWAY [place] Bradly [facility] Encounter Notes: All associated encounter notes This section contains the clinical notes associated to the Encounter. Date/Time Encounter Note(s) Provider Source Apr 07, 2024 02:37 PM PRIMARY CARE NURSE PRACTITIONER OUTPATIENT NOTE: LOCAL TITLE: NURSE PRACTITIONER OUTPATIENT NOTE STANDARD TITLE: PRIMARY CARE NURSE PRACTITIONER OUTPATIENT NOTE DATE OF NOTE: APR 07, 2024@14:37 ENTRY DATE: APR 07, 2024@14:38:04 AUTHOR: JIM DUTTA EXP COSIGNER: URGENCY: STATUS: COMPLETED PRIMARY CARE VISIT JOSE CLAUDIO, is a 88 y/o WHITE FEMALE who presents today at the [place] [facility]. TYPE OF VISIT: Face to face accompanied by granddaughter HPI: AFib, HTN, HLD - remains on Eliquis, metoprolol, statin. Followed by cardiology. BP has been stable. Denies chest pain, palpitations, peripheral edema. CKD stage 4 - GFR 28. Followed by nephrology. [place] - has hearing aids vascular dementia - still lives alone. Family is discussing possible [facility] placement. Recently left hot water running, is also a fall risk There are some safety issues with her living alone. All medications were reconciled during this visit. Has labs ordered by community PCP, states she will request he send a copy of results to [place]. HEALTHCARE PROVIDERS: see problem list HISTORY: PERIOD OF SERVICE - [employer] FROM Nov TO Jul COMBAT SERVICE INDICATED: No VITAL SIGNS: Blood Pressure: 118/75 (04/07/2024 14:38) Pain: 0 (03/02/2024 14:07) Patient Height: 64 in [162.6 cm] (04/07/2024 14:38) Patient Weight: 122 lb [55.34 kg] (04/07/2024 14:38) Pulse: 83 (04/07/2024 14:38) Respiration: 18 (04/07/2024 14:38) Temperature: 97.7 F [36.5 C] (04/07/2024 14:38) ASSISTIVE DEVICES: none REVIEW OF SYSTEMS: see HPI PHYSICAL EXAMINATION: General: Well-appearing [place] in no obvious distress. Mental Status: Alert and oriented x2. Repetitive. Neck: Supple. No lymphadenopathy. No bruit. Thyroid unremarkable. Lungs: CTAB. Normal chest excursion. Eupneic respirations. CV: Heart tones S1, S2. HR irregularly irregular. No M/G/R. No peripheral edema. GI: Abdomen is soft and nontender. No palpable mass or organomegaly. MS: Mild kyphosis, OA changes b/l hands. Psych: Normal mood and affect. Cooperative with exam, follows commands. ALLERGIES: CODEINE, PNEUMOVAX 23 HEALTH MAINTENANCE - see end of note PREVENTIVE MEDICINE GOALS Info Only: [facility] Video Connect Capable DUE NOW Home Telehealth (CCHT) Referral DUE NOW Osteoporosis Screening DUE NOW Influenza Immunization DUE NOW Mammogram Screening Mar 07 Medication Reconciliation DUE NOW Td / Tdap Immunization Jun 23 COVID-19 Immunization DUE NOW (Optional) Whole Health Documentation DUE NOW ASSESSMENT/PLAN: Active problems - Computerized Problem List is the source for the followin. HTN - Hypertension (SCT 54359959). Stable, continue Rx. 2. AF- Atrial Fibrillation. Continue Eliquis until risk > benefit. Followed by cardiology. 3. Long-term current use of anticoagulant - at high risk for bleeding complications. 4. Hyperlipidemia (SNOMED CT 85309906) - continue statin until risk > benefit. Monitor labs. 5. CKD stage 4 - GFR 28. Monitor labs, risk vs benefit of nephrotoxic medications. Followed by nephrology. 6. Hearing loss (SNOMED CT 67325461) - wears hearing aids. 7. vascular dementia - currently living alone, appears to be unsafe. Family is discussing placement in [facility]. Decline expected with natural progression of disease. 8. repeated falls - Life Alert system ordered for patient. FOLLOW UP: Return to clinic as noted below and/or sooner PRN UPCOMING APPOINTMENTS: No data available No barriers noted; patient understands and agrees to current treatment plan. If patient has any questions, concerns or changes in current health status he/she will call or come in to the VA. HM: Info Only: [place] Video Connect Capable: Home Telehealth (CCHT) Referral: Patient declines participation in CCHT Program at this time. Osteoporosis Screening: A bone density screen was completed at a location other than this [facility]. A written report was not available. Date screening was completed: March 26, 2023 Results: Osteoporosis Medication Reconciliation: Outpatient: Has the patient been taking medications as documented in the EMLR? No: Discrepencies were identified. See below. Essential Medication List for Review used to complete this medication reconciliation. INCLUDED IN THIS LIST: Alphabetical list of active outpatient prescriptions dispensed from this [place] (local) and dispensed from another [place] or [facility] facility (remote) as well as inpatient orders (local, pending and active), local clinic medications, locally documented non-VA medications, and local prescriptions that have or been discontinued in the past 90 days. - Discrepancies were identified, addressed, and discussed with the patient/caregiver at this encounter. Discrepancies: no longer taking losartan, Ca++ or vitamin D - All changes in medications, including all non-VA/Herbal/OTC medications were entered into CPRS. - If there were any medications the patient should no longer take, they were discontinued. - The patient/caregiver was instructed to update this list, discard old lists, and take this list to the next appointment, whether with a VA or non-VA provider. Mammogram Screening: Mammogram screening is no longer indicated. Comment: Patient preference, aged out /es/ HARVINDER DE LA CRUZ CERTIFIED NURSE PRACTITIONER Signed: 04/11/2024 13:27 JIM DUTTA MANASSAS
--- OUTSIDE RECORDS SUMMARY | 2024-06-23 13:00 | XMS_ITS ---
Author Organization [facility] Address [address] [place] [address] Care Team Providers Care Hands Hanger Name Role Phone Bala Arnett Unavailable [phone] ALLERGIES, ADVERSE REACTIONS, ALERTS Substance Code Code System Type Reaction Severity Status Start Date End Date Benadryl 911636 RxNorm Drug allergy () 1 No known non-drug allergies RxNorm Other substance zakiya rgy () 1 MEDICATIONS Medication Code Code System Start Date Stop Date Route Dosage Directions Fill Instructions losartan 0 RxNorm oral atorvastatin 19689 RxNorm 11/06/19 19 aspirin 0 RxNorm rectal metoprolol succinate 0 RxNorm oral walker 0 RxNorm 01/24/20 23 miscellaneous apixaban 0 RxNorm oral PROBLEMS Problem Name Code Code System Start Date End Date Stat us Spinal stenosis, site unspecified 71520356 [facility] 019 Resolved Hyperlipidemia 65930624 [facility] 11/05/2018 Activ e Unspecified atrial fibrillation 36911856 [facility] 9 Active Contusion of right foot, ini tial encounter 95722715 [facility] 01/23/2023 Resolved Sprain of unspecified ligame nt of right ankle, initial encounter 61000452 [facility] 01/23/2023 Resolved Alzheimer's disease, unspecified 43105564 [facility] 06/22/19 25 Active Unspecified symptoms and sig ns involving the genitourinary system 975528234 [facility] 06/22/2024 Active ENCOUNTERS Encounter Diagnosis Code Code System Date Stat us Alzheimer's disease, unspecified 38563302 [facility] 05/27 Active Unspecified symptoms and sig ns involving the genitourinary system 892384534 [facility] 06/22/2024 Active IMMUNIZATIONS * None VITAL SIGNS Code Code System Vitals Name Date Value and Un its 8867-4 [facility] Heart Rate 06/22/2024 81 /min 9279-1 [facility] Respiratory Rate 06/22/2024 12 /min 8310-5 [facility] Body Temperature 06/22/2024 97.4 F 43955-9 [facility] Oxygen Saturation 06/22/2024 99 % SOCIAL HISTORY * None PROCEDURES * None RESULTS Test Code Code System Description Result Value Date Ref erence Range [facility] Glucose Negative 06/22/2024 [facility] Bilirubin Negative 06/22/2024 [facility] Ketone Negative 06/22/2024 [facility] Specific [place] 1.69432 06/22/2024 [facility] Blood Negative 06/22/2024 [facility] pH 6.06471 06/22/2024 [facility] Protein Negative 06/22/2024 [facility] Urobilinogen 0.51959 E.U./dL 06/22/2024 [facility] Nitrite Negative 06/22/2024 [facility] Leukocytes Negative 06/22/2024 [facility] Color Yellow 06/22/2024 [facility] Clarity Clear 06/22/2024 MEDICAL EQUIPMENT * Patient has no history of implantable devices ASSESSMENT * None TREATMENT PLAN Type Description Date ORDERS close follow up with your doctors. we will call if urine culture is positive. go to ED for new or worsening symptoms 06/22/2024 APPOINTMENT If not feeling wilson r in 3 day(s), please see your primary care physician. If you do not have a primary care physician, please return to this clinic. 06/22/2024 Labs Tests Test Name Code Code System Date Clinitek Urinalysis, automated, without microscopy 810 03 CPT 06/22/2024 CULTURE, URINE, ROUTINE 97868;27700 CPT 06/22 GOALS * None HEALTH CONCERNS * No Health Concerns FUNCTIONAL AND COGNITIVE STATUS * None CONSULTATION NOTES * None DISCHARGE SUMMARY NOTES * None HISTORY AND PHYSICAL NOTES * Patient: JOSE CLAUDIO, Sex: F (ID# [id number]) Date of : 1935 (88 years) Visit on 06/22/2024 (Log# [id number]) Historian: Self History of Present Illness: pt presents to for memory issues. pt is with granddaughter who helps with interview. she has history of Alzheimer's. since last week granddaughter states more forgetfulness and sudden decline in memory. for instance she normally sets up her daily pills to take and she forgot how to take them. they tried to call pcp and they were unable to see her for months but wanted them to come herefor check a urine to rule out UTI. pt denies urinary symptoms. no fevers or headache. no facial drooping or slurring of words. no change in balance or ambulation. no further complaints Complaint: The patient presents with a chief complaint of confusion since Jun 16, 2024. It has the following qualities: generalized and memory impairment. Context - Initial History: The patient reports it was not the result of an injury. Review of Systems: The patient complains of the following recent symptoms: Psychiatric: confusion: See HPI : nighttime urination Musculoskeletal: back pain The patient denies the following recent symptoms: Constitutional: denies fever Neurological: denies headache : denies painful urination, frequent urination, blood in urine Allergies: patient specifies no known allergies Medications: atorvastatin: atorvastatin; 0 refill(s); metoprolol succinate: metoprolol succinate; (oral) days; 0 refill(s); apixaban: apixaban; (oral) days; 0 refill(s); aspirin: aspirin; (rectal) days; 0 refill(s); Problem List: Hyperlipidemia (status Active) Unspecified atrial fibrillation (status Active) Surgeries: Back: unspecified appendix: unspecified Social History: Tobacco Use: denies Alcohol: denies Street / Unprescribed Drugs: denies Vitals: 10:42 AM (06/22/2024)Temperature: 97.4 ?F, Pulse: 81 BPM, Respirations: 12/min, O2 Saturation: 99%,O2 Delivery: RAFirst entered 06/22/2024 10:42 by Leo Parmar Physical Exam: The following exam elements were documented to be normal: Cardiovascular: S1, S2 noted, normal rate, regular rhythm, and no murmurs, rubs, gallop, or extra heart sounds. General: well developed, well nourished, and in no apparent distress. Psychiatric: oriented and alert. Psychiatric: alert and oriented to person, place, time, and situation. Respiratory: lungs clear to auscultation bilaterally with good air movement, no stridor, crackles, rubs, or wheezing. Labs: Clinitek Urinalysis, automated, without microscopy Code(s): 21264 Results Glucose: Negative Bilirubin: Negative Ketone: Negative Specific [place]: 1.29318 : 1.020 Blood: Negative pH: 6 : 6.0 Protein: Negative Urobilinogen: 0.12858 E.U./dL: 0.2 Nitrite: Negative Leukocytes: Negative Color: Yellow Clarity: Clear Wilb Clinitek Status+ ([id number]), [facility] springs[facility]: [id number], Expiry: 2024-12Notes: Order entered 06/22/2024 10:43 by Leo Rutherford Under supervision of ordering provider KIAN HART Completed 06/22/2024 10:43 by Leo Rutherford Reviewed 06/22/2024 10:56 by Bala Arnett CULTURE, URINE, ROUTINE Code(s): 11881, 36367 Results The results have not been recorded yet. Ordered 06/22/2024 11:00 by Bala Arnett Completed 06/22/2024 11:03 by Kayla Ferreira NOT REVIEWED (PENDING LAB RESULTS) Code(s) suppressed 06/22/2024 11:00 by Bala Arnett Diagnoses: Alzheimer's disease, unspecified (G30.9) Unspecified symptoms and signs involving the genitourinary system (R39.9) Discharge Instructions: Alzheimer's Disease Plan: If not feeling better in 3 day(s), please see your primary care physician. If you do not have a primary care physician, please return to this clinic. close follow up with your doctors. we will call if urine culture is positive. go to ED for new or worsening symptoms Visit discharged at 06/22/2024 11:01:24 AM by Bala Arnett PA-C Signed electronically by Bala Arnett PA-C on 06/22/2024 5:13:37 PM IMAGING NOTES * None LABORATORY REPORT NARRATIVE NOTES * None PATHOLOGY REPORT NARRATIVE NOTES * None PROGRESS NOTES * None
--- OUTSIDE RECORDS SUMMARY | 2024-06-23 13:00 | XMS_ITS | Clinical Summary ---
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 Name Role Phone Raffy Workman MD Primary Care Provider [phone] Allergies Active Allergy Reactions Criticality Noted Date Comments Acetaminophen 12/07/2020 Codeine 12/07/2020 Codeine Phosphate Nausea And Vomiting 03/31/2012 Cod-Na Metabisulfite Diphenhydramine Hcl Dizziness 03/31/2012 & Alc-Diphenhydramine- Fd&C Red #40 Oxycodone Hcl 12/07/2020 Oxycodone-Acetaminophen Nausea And Vomiting 03/31/2012 Sertraline Nausea And Vomiting 06/25/2017 Sulfa (Sulfonamide Antibiotics) 02/01/2016 Sulfacetamide 12/07/2020 Tramadol Headache 12/27/2015 Medications Medication Sig Dispensed Refills Start Date End Date Status metoprolol succinate (TOPROL-XL) 25 mg 24 hr tablet Take 1 Tablet by mouth daily. Active apixaban (ELIQUIS) 5 mg tablet Take 2.5 mg by mouth 2 times daily. 03/20/2023 Active atorvastatin (LIPITOR) 20 mg tablet Take 20 mg by mouth daily. 08/02/2015 Active multivit-min/ferrous fumarate (MULTI VITAMIN ORAL) Take 1 Tab by mouth daily. 02/05/2017 Active Active Problems Problem Noted Date Diagnosed Date Stage 3 chronic kidney disease 04/11/2023 Primary hypertension 02/22/2022 Overview (02/25/2024): Last Assessment & Plan: Reasonably [id number] think a range of less than 150/90 is acceptable given her tendency for postural lightheadedness-I would not want to risk falls/syncope and therefore have not made any changes to her regimen which will remain metoprolol 25 mg daily and losartan 25 mg twice daily TIA (transient ischemic attack) 08/24/2020 Overview (02/25/2024): 07/2020 Last Assessment & Plan: Continue Eliquis 2.5 twice daily but will reinitiate aspirin 81 mg daily Hearing loss 06/02/2019 Memory changes 06/02/2019 Rosacea 05/06/2019 Overview (02/25/2024): In eyes and on face Atrial fibrillation 11/09/2018 Overview (02/25/2024): -I met her in hospital consultation when she was hospitalized at in October 2018 for symptoms of refractory vertigo-she was incidentally noted to be in A-fib -I do not think the A. fib was related to the vertigo symptoms however I did recommend a CT angiography of the head and neck to assess for posterior circulation blockages as these can often present as vertigo-she did have a CT angiography which did not show any significant blockages of the head or neck arteries; she also had an MRI of the brain that was negative for acute stroke -For her A. fib I started her on a low-dose of metoprolol and Eliquis for CVA prophylaxis -Most recent echocardiogram from 08/15/2020 during her hospitalization??(detailed below)??showed normal left ventricular size, wall thickness, and systolic function, normal regional wall motion with an ejection fraction of 55 to 60%, severe left atrial and moderate right atrial enlargement, normal RV size and systolic function, mild AI, mild to moderate MR, moderate TR, elevated pulmonary artery systolic pressure of 45 mmHg - Was rehospitalized in July 2020 with sudden onset of aphasia and dysarthria- was diagnosed with a TIA and was already on Eliquis 2.5 twice daily with dose reduction for age and low body weight-baby aspirin was initiated in addition to this - When I saw her in follow-up in June 2021, I did discuss her informally with another neurologist who agreed with me that this could be an Eliquis failure and recommended the possibility of Xarelto at full dose given that she would not qualify for dose reduction on this medication; however I was only going to switch her after speaking to her granddaughter August-at the patient's request-unfortunately, I was never able to get in touch with her as I left messages on 2 different phone numbers with my contact information and never heard back - MRI of the brain from July 2020 showed no acute intracranial pathology. ??There is moderate parenchymal volume loss and probable microangiopathic ischemic changes. ??There were also multiple punctate gradient foci similar to previous exam which can be seen in the setting of amyloid angiopathy and/or remote petechial microhemorrhages -CT angiography showed no significant carotid stenoses, patent vertebral arteries, no significant stenoses of the intracranial carotid circulation, vertebral arteries, vertebral basilar junction, basilar, and posterior cerebral arteries. ??There was also no evidence of aneurysm Last Assessment & Plan: Anticoagulated with Eliquis which given body weight less than 60 kg and age greater than 80, should be at 2.5 twice daily; what worried me was that previously in July 2020, she was again on 2.5 twice daily for the same reasons (an appropriate dose based on her weight at the time) and had refractory TIA symptoms; I am not sure if her current neurologist knows about this-I asked August to bring this up with him at their next visit but in the meantime, I will have her resume a baby aspirin-this was the intervention performed during that hospitalization Cervical radiculopathy 02/12/2018 Hypercholesterolemia 02/12/2018 Overview (02/25/2024): Last Assessment & Plan: Continue atorvastatin 20 mg at bedtime Lumbar radiculopathy 02/12/2018 Major depression, single episode 02/12/2018 Spinal stenosis 02/12/2018 Macular degeneration 08/07/2017 Osteoporosis 01/06/2017 Esophageal reflux 08/02/2015 Venous insufficiency 11/11/2013 Encounters Date Type Department Care Team Description 06/22/2024 Telephone [facility] [address] [place] [phone] Raffy Workman MD Referral ([facility] long[facility]) 06/17/2024 Telephone Endocrinology - [place] [address] [place], [place] [phone] Mark Lei MD Referral 05/04/2024 Telephone Pediatrics - [facility] [address] [facility] [place], [place] [phone] Raffy Workman MD Forms/questionnaires 05/04/2024 Telephone [facility] - [facility] [address] [place], [place] [phone] Raffy Workman MD Provider Call Back 04/30/2024 Telephone [facility] - [facility] [address] [facility] [place], [place] [phone] Mar Saeed [place] 04/21/2024 Telephone Pediatrics - [facility] [address] [place] [address] Raffy Workman MD Faxed Order (ATI (Initial Eval/POC)) 04/20/2024 4:15 PM EST - 04/20/2024 11:59 PM EST Hospital [facility] [address] [phone] Encounter for screening mammogram for breast cancer Discharge Disposition: Home or Self Care 04/02/2024 2:30 PM EST Office Visit [facility] [address] [facility] [place], [place] [phone] Raffy Workman MD Primary hypertension (Primary Dx); Hypercholesterolemia ; Longstanding persistent atrial fibrillation (CMS/HCC); Benign paroxysmal positional vertigo, unspecified laterality; Current moderate episode of major depressive disorder without prior episode (CMS/HCC); Age related osteoporosis, unspecified pathological fracture presence 03/31/2024 Telephone Endocrinology - [place] [address] [place], [place] [phone] Silva Leach MA from Last 3 Months Immunizations Name Administration Dates Next Due Influenza Quadravalent, 0.5m l (Fluzone High-dose) 65yo and older 02/03/2024 Influenza trivalent, 0.5mL, preservative free (Fluarix; FluLaval; Fluzone) ages 6mo and older (Afluria) 3 years and older 04/10/2016,02/16/2014,02/28/2012,03/01,03/16/2010 Influenza, Unspecified 03/26/2023,02/07/2022, Pfizer SARS-CoV-2 COVID-19, mRNA, LNP-S, preservative free 02/03/2024,03/26/2023,03/17/2021,07/21,07/02/2020 Pneumococcal polysaccharide 23 valent (Pneumovax 23) 2yo and older 03/11/2011 Zoster recombinant (Shingrix ) 19yo and older 08/23/2020,02/18/2020 Surgical History Surgery Date Site/Laterality Comments CARPAL TUNNEL RELEASE PROCEDURE: HISTORICAL CARPAL TUNNEL REL ROTATOR CUFF REPAIR Left PROCEDURE: HISTORICAL ROTATOR CUFF REPAIR APPENDECTOMY PROCEDURE: HISTORICAL APPENDECTOMY CATARACT EXTRACTION Bilateral PROCEDURE: HISTORICAL CATARACT REMOVAL BACK SURGERY 01/10/2020 PROCEDURE: HISTORICAL BACK SURGERY; COMMENT: L2-3, L3-4, L4-5 decompression Medical History Medical History Date Comments Cervical radiculopathy 02/12/2018 DX:Cervic al radiculopathy Esophageal reflux 08/02/2015 DX:Esophageal reflux Lumbar radiculopathy 02/12/2018 DX:Lumbar r adiculopathy Macular degeneration 08/07/2017 DX:Macular degeneration Osteopenia 01/06/2017 DX:Osteopenia Spinal stenosis 02/12/2018 DX:Spinal stenos is Venous insufficiency 11/11/2013 DX:Venous i nsufficiency History of perforation of ty mpanic membrane 06/15/2018 DX:History of perforation of tympanic membrane History of adenomatous polyp of colon 06/15/2018 DX:History of adenomatous polyp of colon CAD (coronary artery disease) 02/12/2018 DX :CAD (coronary artery disease); COMMENT: Comments: [employer]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 01/27/13 documents Aortic atherosclerosis per [place] 03/28/05 Atrial fibrillation (CMS/HCC) DX :Atrial fibrillation (HCC) Major depression, single episode 02/12/2018 DX:Major depression, single episode Family History Medical History Relation Name Comments Prostate cancer Brother 1 Diabetes Brother 2 Other: Other Daughter bad teeth, othe r sx of itching but unsure of what it is Heart attack Father Stroke Mother Alzheimer's disease Sister 1 Stroke Sister 1 Alzheimer's disease Sister 2 Dementia Sister 3 chf Seizures Sister 4 brain tumor, sp inal stenosis, removed No Known Problems Son Relation Name Status Comments Brother 1 Brother 2 Daughter Alive Father Maternal Grandfather Maternal Grandmother Mother Paternal Grandfather Paternal Grandmother Sister 1 Sister 2 Sister 3 Sister 4 Alive Son Alive Social History Tobacco Use Types Packs/Day Years Used Date Smoking Tobacco: Never Smokeless Tobacco: Never Tobacco Cessation:Counseling Given: Not Answered Alcohol Use Standard Drinks/Week Comments No 0 (1 standard drink = 0.6 oz pur e alcohol) Sex and Gender Information Value Date Recorded Sex Assigned at Not on file Gender Identity Not on file Sexual Orientation Not on file Job Start Date Occupation Industry Not on file Not on file Not on file Obstetrics History Para Term AB IAB SAB Ectopic Multiple Livin g Live Births 2 Last Filed Vital Signs Vital Sign Reading Time Taken Comments Blood Pressure 130/78 04/02/2024 2:29 PM EST Pulse 78 04/02/2024 2:29 PM EST Temperature - - Respiratory Rate - - Oxygen Saturation - - Inhaled Oxygen Concentration - - Weight 54.4 kg (120 lb) 04/20/2024 4:42 PM EST Height 160 cm (5' 3 ) 04/20/2024 4:42 PM EST Body Mass Index 21.26 04/20/2024 4:42 PM EST Plan of Treatment Health Maintenance Due Date Last Done Comments RSV Immunization Patients 60+ Years Old (1 - 1-dose 75+ series) 10/21/2011 Pneumococcal Vaccine: 65+ Years (2 of 2 - PCV) 03/11/2012 03/11/2011, 04/25/2002 Depression Screening 04/27/2022 Medicare Annual Wellness Visit 04/27/2022 DTaP,Tdap,and Td Vaccines (3 - Td or Tdap) 06/23/2023 06/23/2013, 02/15/2003 COVID-19 Vaccine ( season) 2024 02/03/2024, 03/26/2023, 03/19/2023, Additional history exists Falls Risk Assessment 04/02/2025 04/02/2024 Social Influencers of Health Screening 04/02/2025 04/02/2024 Hypertension/CHF/CAD Annual BMP Blood Test 04/08/2025 04/08/2024, 04/10/2023 Cholesterol Screening (Lipid Panel) 04/08/2029 04/08/2024, 06/01/2020 Osteoporosis Screening (Bone Density Screening) 03/20/2033 03/20/2023, 02/07/2021, 12/30/2018 Zoster Vaccines Completed 08/23/2020, 02/18/2020 Influenza Vaccine Completed 02/24/2024, , 03/26/2023, Additional history exists HIB Vaccines Aged Out No longer eligi ble based on patient's age to complete this topic HPV Vaccines Aged Out No longer eligi ble based on patient's age to complete this topic Hepatitis A Vaccines Aged Out No long er eligible based on patient's age to complete this topic Hepatitis B Vaccines Aged Out No long er eligible based on patient's age to complete this topic IPV Vaccines Aged Out No longer eligi ble based on patient's age to complete this topic MMR Vaccines Aged Out No longer eligi ble based on patient's age to complete this topic Meningococcal ACWY Vaccine Aged Out N o longer eligible based on patient's age to complete this topic RSV Immunization Patients Under 20 months Aged Out No longer eligible based on patient's age to complete this topic Varicella Vaccines Aged Out No longer eligible based on patient's age to complete this topic Procedures Procedure Name Priority Date/Time Associated Diagnosis Comments MG MAMMO DIGITAL SCREENING W GERALDO BILAT Routine 04/20/2024 4:54 PM EST Encounter for screening mammogram for breast cancer COMPREHENSIVE METABOLIC PANEL Routine 04/08/2024 11:35 AM EST Primary hypertension LIPID PANEL WITH REFLEX TO DIRECT LDL Routine 04/08/2024 11:35 AM EST Hypercholesterolemia SHRUTHI DEXA AXIAL SKELETON Routine 03/20/2023 2:12 PM EDT Encounter for screening for osteoporosis from Last 3 Months or Most Recently Relevant to Health Maintenance Results * MG Mammo Digital Screening w Geraldo bilat (04/20/2024 4:54 PM EST) Anatomical Region Laterality Modality Breast Bilateral Mammography 04/20/2024 5:22 PM EST Impressions 04/20/2024 5:22 PM EST Stable mammographic appearance of the breasts. No evidence of malignancy is seen. A negative mammogram in the presence of a clinically suspicious palpable abnormality does not preclude the possibility of malignancy or alter the indications for biopsy. BI-RADS CATEGORY: 2 - BENIGN RECOMMENDATION: Screening bilateral mammogram is recommended in 1 year. [facility]ammo Location[facility] , [address] [place] [address], [phone], . -------- FINAL REPORT -------- Dictated By: Mone Amin Dictated Date: 04/20/2024 17:22 ET Assigned Physician: Mone Amin Reviewed and Electronically Signed By: Mone Amin Signed Date: 04/20/2024 17:22 ET Workstation ID: [id number] Transcribed By: Self Edit Transcribed Date: 04/20/2024 17:22 ET Narrative 04/20/2024 5:22 PM EST HISTORY: Screening. COMPARISON: 03/20/23, 02/07/21, 12/30/18 ?? TECHNIQUE: Bilateral digital breast tomosynthesis was performed in the CC and MLO projections. Computer aided detection with hereOD [employer] AI 3D 3.1 was employed. BREAST DENSITY: B - There are scattered areas of fibroglandular density. FINDINGS: No suspicious masses, grouped microcalcifications, or areas of architectural distortion are seen. A small group of coarse, benign calcifications is unchanged since at least 2014. Vascular calcification is present. Left nipple inversion is long-term stable. Procedure Note Mone Amin MD - 04/20/2024 HISTORY: Screening. COMPARISON: 03/20/23, 02/07/21, 12/30/18 TECHNIQUE: Bilateral digital breast tomosynthesis was performed in the CCand MLO projections. Computer aided detection with iCAD [employer] Pixel [employer] AI 3D 3.1was employed. BREAST DENSITY: B - There are scattered areas of fibroglandular density. FINDINGS: No suspicious masses, grouped microcalcifications, or areas ofarchitectural distortion are seen. A small group of coarse, benigncalcifications is unchanged since at least 2014. Vascular calcification is present. Left nipple inversion is long-termstable. IMPRESSION: Stable mammographic appearance of the breasts. No evidence of malignancyis seen. A negative mammogram in the presence of a clinically suspicious palpableabnormality does not preclude the possibility of malignancy or alter theindications for biopsy. BI-RADS CATEGORY: 2 - BENIGN RECOMMENDATION: Screening bilateral mammogram is recommended in 1 year. [facility]ammo Location: [facility] , [address] [place] [address], [phone], . -------- FINAL REPORT -------- Dictated By: Mone Amin Dictated Date: 04/20/2024 17:22 ET Assigned Physician: Mone Amin Reviewed and Electronically Signed By: Mone Amin Signed Date: 04/20/2024 17:22 ET Workstation ID: [id number] Transcribed By: Self Edit Transcribed Date: 04/20/2024 17:22 ET Self Referral Sppl IMG BI PROCEDURES * Lipid panel with reflex to direct LDL (04/08/2024 11:35 AM EST) Cholesterol 191 0 - 200 mg/dL LAB CHEMISTRY METHOD 04/08/2024 3:43 PM [facility] Triglycerides 90 0 - 150 mg/dL LAB CHEMISTRY METHOD 04/08/2024 3:43 PM EST [facility] HDL 95 >=40 mg/dL LAB CHEMISTRY METHOD 04/08/2024 3:43 PM [facility] LDL Calculated 78 0 - 100 mg/dL LAB CHEMISTRY METHOD 04/08/2024 3:43 PM [facility] VLDL Cholesterol Gibson 18 mg/dL LAB CHEMISTRY METHOD 04/08/2024 3:43 PM [facility] Non HDL Chol. (LDL+VLDL) 96 <145 mg/dL LAB CHEMISTRY METHOD 04/08/2024 3:43 PM [facility] Chol/HDL Ratio 2.0 0.0 - 4.4 LAB CHEMISTRY METHOD 04/08/2024 3:43 PM [facility] Blood Venous blood specimen / Unknown Venipuncture / Unknown 04/08/2024 11:35 AM EST 04/08/2024 11:35 AM EST Raffy Workman MD LAB BLOOD ORDERABLES [facility] [address] [place] [address], * (ABNORMAL) Comprehensive metabolic panel (04/08/2024 11:35 AM EST) Sodium 140 133 - 145 mmol/L LAB CHEMISTRY METHOD 04/08/2024 3:05 PM [facility] Potassium 3.7 3.5 - 5.5 mmol/L LAB CHEMISTRY METHOD 04/08/2024 3:05 PM [facility] Chloride 106 96 - 110 mmol/L LAB CHEMISTRY METHOD 04/08/2024 3:05 PM [facility] CO2 27 21 - 32 mmol/L LAB CHEMISTRY METHOD 04/08/2024 3:05 PM [facility] Anion Gap 7 3 - 11 LAB CHEMISTRY METHOD 04/08/2024 3:05 PM [facility] Glucose 116(H) 70 - 100 mg/dL LAB CHEMISTRY METHOD 04/08/2024 3:05 PM [facility] BUN 24 5 - 25 mg/dL LAB CHEMISTRY METHOD 04/08/2024 3:05 PM [facility] Creatinine 1.66(H) 0.50 - 1.10 mg/dL LAB CHEMISTRY METHOD 04/08/2024 3:05 PM [facility] eGFR 30(L) >=60 mL/min/1. 73m2 LAB CHEMISTRY METHOD 04/08/2024 3:05 PM [facility] Comment:Calculation based on the??Chronic Kidney Disease Epidemiology Collaboration (CKD-EPI) equation refit??without adjustment for race. BUN/Creatinine Ratio 14.5 LAB CHEMISTRY METHOD 04/08/2024 3:05 PM [facility] Calcium 9.3 8.5 - 10.5 mg/dL LAB CHEMISTRY METHOD 04/08/2024 3:05 PM [facility] AST (SGOT) 27 10 - 42 unit/L LAB CHEMISTRY METHOD 04/08/2024 3:05 PM [facility] ALT (SGPT) 32 10 - 60 unit/L LAB CHEMISTRY METHOD 04/08/2024 3:05 PM [facility] Alkaline Phosphatase 138(H) 42 - 121 unit/L LAB CHEMISTRY METHOD 04/08/2024 3:05 PM [facility] Total Protein 6.8 6.0 - 8.0 g/dL LAB CHEMISTRY METHOD 04/08/2024 3:05 PM [facility] Albumin 4.1 3.2 - 5.0 g/dL LAB CHEMISTRY METHOD 04/08/2024 3:05 PM [facility] Total Bilirubin 0.8 0.0 - 1.4 mg/dL LAB CHEMISTRY METHOD 04/08/2024 3:05 PM [facility] Blood Venous blood specimen / Unknown Venipuncture / Unknown 04/08/2024 11:35 AM EST 04/08/2024 11:35 AM EST Raffy Workman MD LAB BLOOD ORDERABLES [facility] [address] [place] [address], * SHRUTHI DEXA AXIAL SKELETON (03/20/2023 2:12 PM EDT) Anatomical Region Laterality Modality Mammography 03/20/2023 11:1 6 AM EDT Narrative 03/20/2023 2:[address] [facility] Diagnostic Imaging Department [address] [place] [id number] Patient: ??JOSE CLAUDIO ?/Age/Sex: 1935 - 87 - F Unit#: ??[id number] ? Location/Status: ??SPDIMAM/REG CLI ? Mnemonic/Ordering Site: ??MAMDEXAAX/SPMAM Ordering Physician: ??RAFFY WORKMAN MD [facility] Dexa Axial Skeleton - 03/20/23 - 1612 Report Status:Signed History: Low estrogen state due to menopause. Comparison: 02/07/21 Findings: Bone densitometry is performed utilizing dual energy x-ray absorptiometry (DXA) in the [employer] unit. The lumbar spine and proximal femora are evaluated in the AP projection. The FRAX questionaire was completed. The results indicate osteoporosis, with a right femoral neck T-score of -2.5. The Z score is 0.2, indicating bone mineral density within the range of normal for age. There has been no statistically significant change. ??The detailed DEXA report will be mailed to the referring physician's office. DualFemur FRAX: 10-year Probability of Fracture: Major Osteoporotic 16.0 percent ??Hip 6.1 percent. IMPRESSION: Osteoporosis. [id number] Dictating Physician: ??MONE AMIN MD Electronically Signed by: ??MONE AMIN MD Dic Date/Time: ??03/20/23 1411 Sign date/Time: ??03/20/23 1412 Procedure Note Mone Amin MD - 07/01/2023 [facility] Diagnostic Imaging Department [address] [place] [id number] Patient: JOSE CLAUDIO Mikey Little/Age/Sex: 1935 - 87 - F Unit#: [id number] [facility] CLI Mnemonic/Ordering Site: [facility] Ordering Physician: RAFFY WORKMAN MD [facility] Dexa Axial Skeleton - 03/20/23 - 1150 Report Status:Signed History: Low estrogen state due to menopause. Comparison: 02/07/21 Findings: Bone densitometry is performed utilizing dual energy x-ray absorptiometry(DXA) in the [employer] unit. The lumbar spine and proximal femora areevaluated in the AP projection. The FRAX questionaire was completed. The results indicate osteoporosis, with a right femoral neck T-score of-2.5. The Z score is 0.2, indicating bone mineral density within the range ofnormal for age. There has been no statistically significant change. The detailed DEXAreport will be mailed to the referring physician's office. DualFemur FRAX: 10-year Probability of Fracture: Major Osteoporotic 16.0 percent Hip 6.1 percent. IMPRESSION: Osteoporosis. 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 Health Care Decision (hx) 01/12/2020 AD MERA DIRECTIVE Health Care Decision (hx) 01/12/2020 AD MERA DIRECTIVE Health Care Decision (hx) 01/12/2020 AD MERA DIRECTIVE Health Care Decision (hx) 01/12/2020 AD MERA DIRECTIVE Health Care Decision (hx) 01/12/2020 AD MERA DIRECTIVE Health Care Decision (hx) 01/12/2020 AD MERA DIRECTIVE Health Care Decision (hx) 01/12/2020 AD MERA DIRECTIVE Health Care Decision (hx) 01/12/2020 AD MERA DIRECTIVE Health Care Decision (hx) 01/12/2020 AD MERA DIRECTIVE Health Care Decision (hx) 01/12/2020 AD MERA DIRECTIVE Health Care Decision (hx) 01/12/2020 AD MERA DIRECTIVE Health Care Decision (hx) 01/12/2020 AD MERA DIRECTIVE Health Care Decision (hx) 01/12/2020 AD MERA DIRECTIVE Health Care Decision (hx) 01/12/2020 AD MERA DIRECTIVE Health Care Decision (hx) 01/12/2020 AD MERA DIRECTIVE Care Teams Compressor Mechanic 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
--- OUTSIDE RECORDS SUMMARY | 2024-06-23 13:00 | XMS_ITS | Encounter Summary ---
Author Name Department [place] Organization [facility] Address [address] [place] [id number] Care Team Providers Care Administrative Tech Name Role Phone JIM DUTTA Primary Care Provider Unavailpoonam e Insurance Providers: All historical and current [...] Quiros's Name Patient's Relationship to Policy Quiros [facility] MEDICARE (M) [facility] ([facility]) May 26, 2014 [facility] [id number] Kamar CLAUDIO PATIENT [facility] ([facility]) MEDICARE ADVANTAGE [facility] ([facility]) May 26, 2018 [facility] [id number] [phone] Kamar CLAUDIO PATIENT Selected Encounter This section includes the information on record at [place] for the Encounter. 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 This section includes future appointments and future orders which are active, pending or scheduled. Future Appointments This section includes appointments that were scheduled to occur 6 months from the date of the Encounter, up to a maximum of 20 appointments. The data comes from all [place] treatment facilities. Appointment Date/Time Appointment Type Appointme [...] of theEncounter. The data comes from all [place] treatment facilities. Test Date/Time Test Type Test Details Facility Name Mar 03, 2024 07:28 AM Consult Order COMMUNITY CARE-PHYSICAL THERAPY Cons [employer] Manufacturing Engineer's Choice [facility] Vital Signs: All taken on the encounter date This section contains inpatient and outpatient Vital Signs collected on the date of the Encounter. Date/Time Temperature Pulse Blood Pressure Respiratory Rate SP02 Pain Height Weight Body Mass Index Source Mar 02, 2024 02:07 PM 97 77 169/81 16 98 0 121 21 [facility] Social History: Smoking Status (Most current) and Tobacco Use (All prior to encounter date) This section includes the most current, and the historical, smoking and tobacco- related health factors from the [place] facility where the Encounter took place. Current Smoking Status This section includes the most current smoking, or tobacco-related health factor, from the [place] facility where the Encounter took place. Date/Time Current Smoking Status Comment Facil ity Mar 08, 2021 01:51 PM VA-TOBACCO NEVER USED [facility] Tobacco Use History This section includes a history of the smoking, or tobacco-related health factors, that were collected on or before the date of the Encounter. The data comes from the [place] facility where the Encounter took place. Date/Time Smoking Status/Tobacco Use Comment Maykel reeves Mar 10, 2019 03:59 PM VA-TOBACCO NEVER USED [facility] Advance Directives: All historical and current Section Date Range: From patient's date of to the date document was created. This section includes ALL of a patient's completed or amended [place] Advance and Rescinded Directives. The entries below indicate that a directive exists for the patient, but an actual copy is not included with this document. The data comes from all [place] facilities. Date Advance Directives Provider Source October 08, 2019 ADVANCE DIRECTIVE SYLVIE TOVAR Apr 07, 2013 ADVANCE DIRECTIVE KEANU HOLLOWAY [facility] Radiology Reports: +/- 30 days of the [...] the Encounter. The data comes from all [place] treatment facilities. Date/Time Radiology Report Provider Source Mar 02, 2024 02:[address] ORBIT SELLA P FOS OR TEMP BONE W/O CONT: JOSE CLAUDIO [id number] F Exm Date: MAR 02, 2024@14:54 Req Phys: JANUARY VALDEZ Pat Loc: CWM/NO/OTOLARYNGOLOGY (Req'g L Img Loc: NHM/CT Service: Unknown [facility] JOO TAYLOR [id number] (Case 222 COMPLETE) CT ORBIT SELLA P FOS OR TEMP BONE(CT Detailed) CPT:24676 Proc Modifiers : BILATERAL EXAM Reason for Study: RIGHT CHL Clinical History: RIGHT CHL Report Status: Verified Date Reported: MAR 04, 2024 Date Verified: MAR 04, 2024 Applications Engineer Manufacturing E-Sig: Report: CT ORBIT SELLA P FOS OR TEMP BONE W/O CONT CLINICAL HISTORY: RIGHT CHL COMPARISON: No priors available TECHNIQUE: The study was protocoled and supervised at the local [place] facility. 1237 images were subsequently received by the [place] National Teleradiology Program (NTP) for interpretation. Total [...] bone: Unremarkable. READING PHYSICIAN: Keanu Guzmán MD -[id number] 03/04/2024 13:39 CDT [facility] National Teleradiology Program [phone] (For Medical Practitioner Use Only) Attention Patients / Veterans: If you have questions or concerns about these test results, please contact your ordering provider or primary care team. Primary Diagnostic Code: NO ALERT REQUIRED Primary Interpreting Staff: RADIOLOGY,OUTSIDE SERVICE, Staff Physician / RADIOLOGY,OUTSIDE SERVICE [place] [facility] Encounter Notes: All associated encounter notes This section contains the clinical notes associated to the Encounter. Date/Time Encounter Note(s) Provider Source Mar 02, 2024 08:28 AM AUDIOLOGY E & M NO TE: LOCAL TITLE: AUDIOLOGY CLINIC STANDARD TITLE: AUDIOLOGY E & M NOTE DATE OF NOTE: MAR 02, 2024@08:28 ENTRY DATE: MAR 02, 2024@08:28:30 AUTHOR: SAMANTHA JUNIOR COSIGNER: URGENCY: STATUS: COMPLETED was seen 03-02-24 for a hearing re-evaluation. Hearing was last evaluated in 2022. She currently uses binaural Natalia BTEs, issued in 2022. She notes she sometimes gets feedback from the right hearing aid. She denies tinnitus and notes history of positional vertigo. She states that her main complaints are a feeling of fullness in her head as well as lightheadedness. She denies ear pain/pressure. Results are as follow: Otoscopy is WNL for both ears. Pure [...] right ear thresholds and WRS have declined. Replaced tubing on both hearing aids. The sound check was positive. Both hearing aids were connected to [employer]. In the feedback canceller screen, the right aid had a gain margin in yellow- autocorrected and increased gain 1 step for both hearing aids. She noted subjective improvement in sound quality. and her granddaughter were counseled on today's test results. They will see ENT at [facility] after this visit and return to Audiology as needed. /doron/ Evan CARD, [facility] STAFF COMMUNITY YOUTH SECRETARY Signed: 03/02/2024 16:20 SAMANTHA JUNIOR [facility]
--- OUTSIDE RECORDS SUMMARY | 2024-06-23 13:00 | XMS_ITS | Encounter Summary ---
Author Name Department of [place]a Affairs [place] Organization [facility] Address [address] [place] [address] Care Team Providers Care Cinema Operator Name Role Phone JIM DUTTA Primary Care [...] Quiros's Name Patient's Relationship to Policy Quiros [facility] MEDIC[facility] (M) [facility] ([facility] May 26, 2014 [facility] [id number] Kamar CLAUDIO PATIENT [facility] ([facility] MEDICARE ADVANTAGE [facility] ([facility] May 26, 2018 [facility] [id number] GONZÁLEZKamar PATIENT Selected Encounter This section includes the information on record at [place] for the Encounter. Date/Time Encounter Type Encounter Description Reason Pro vider Source May 27, 2024 03:16 PM Outpatient Encounter PRIMARY CARE/MEDICINE IHE Encounter Template Text not used by [place] Social History: Smoking Status (Most current) and Tobacco Use (All prior to encounter date) This section includes the most current, and the historical, smoking and tobacco- related health factors from the [place] facility where the Encounter took place. Current Smoking Status This section includes the most current smoking, or tobacco-related health factor, from the [place] facility where the Encounter took place. Date/Time Current Smoking Status Comment Fabian ity Mar 08, 2021 01:51 PM VA-TOBACCO NEVER USED [facility] Tobacco Use History This section includes a history of the smoking, or tobacco-related health factors, that were collected on or before the date of the Encounter. The data comes from the [place] facility where the Encounter took place. Date/Time Smoking Status/Tobacco Use Comment F acility Mar 10, 2019 03:59 PM VA-TOBACCO NEVER USED [facility] Advance Directives: All historical and current Section Date Range: From patient's date of to the date document was created. This section includes ALL of a patient's completed or amended [place] Advance and Rescinded Directives. The entries below indicate that a directive exists for the patient, but an actual copy is not included with this document. The data comes from all [place] facilities. Date Advance Directives Provider Source October 08, 2019 ADVANCE DIRECTIVE SYLVIE TOVAR Apr 07, 2013 ADVANCE DIRECTIVE KEANU HOLLOWAY [facility] Encounter Notes: All associated encounter notes This section contains the clinical notes associated to the Encounter. Date/Time Encounter Note(s) Provider Source May 27, 2024 03:16 PM [employer] [place] NOTE : LOCAL TITLE: SMART BREAST IMAGING FOLLOW-UP STANDARD TITLE: [employer] [place] NOTE DATE OF NOTE: MAY 27, 2024@15:16 ENTRY DATE: MAY 27, 2024@15:16:56 AUTHOR: DARLINE JOHANSEN EXP COSIGNER: URGENCY: STATUS: COMPLETED Record prior or outside mammogram: Written Report Available Outside report Received on: May 27, 2024 Location: [facility] Screening Breast Tomosynthesis Date: April 20, 2024 Patient does not have dense breast tissue Interpretation of results and decision making Summary of results: BIRAD 2: Density B Radiologist recommends the following: Mammogram screening is no longer indicated. Comment: [place] is 88 yo Method patient contacted by: Patient already notified/not needed Comment: notified by NON Vt ordering provider Additional Information: Additional Information: /doron/ Darline Johansen RN, BSN Women's Healthcare Navigator, RN Signed: 05/27/2024 15:19 DARLINE JOHANSEN
--- OUTSIDE RECORDS SUMMARY | 2024-06-23 13:00 | XMS_ITS ---
Author Name Department [place] Organization [place] Address [address] [place] [address] Care Team Providers Care Technical Professional Name Role Phone JIM DUTTA Primary Care [...] Quiros's Name Patient's Relationship to Policy Quiros [facility] HEALTH [facility]AN MEDICARE (M) [facility] ([facility]) May 26, 2014 [facility] [id number] [phone] Kamar CLAUDIO PATIENT [facility] ([facility]) MEDICARE ADVANTAGE [facility] ([facility]) May 26, 2018 [facility] [id number] [phone] Kamar CLAUDIO PATIENT Selected Encounter This section includes the information on record at [place] for the Encounter. Date/Time Encounter Type Encounter Description Reason Pro vider Source Sep 12, 2023 03:42 PM Outpatient Encounter ADMIN PAT ACTIVTIES (MASNONCT) IHE Encounter Template Text not used by [place] Plan of Treatment: Future Appointments (+ 6 [...] 20 appointments. The data comes from all [place] treatment facilities. Appointment Date/Time Appointment Type Appointme nt Facility Name October 07, 2023 10:30 AM AMBULATORY - MEDICINE [place] Mar 02, 2024 01:00 PM AMBULATORY - REHAB MEDICIN [place] [facility] [place] [facility] Mar 02, 2024 02:00 PM AMBULATORY - MEDICINE [place] [facility] [place] [facility] Mar 02, 2024 02:45 PM AMBULATORY - NONE [place] [facility] Lab Results: +/- 30 days of the encounter This section includes the Chemistry and Hematology Lab Results on record with [place] for the patient. Radiology Reports and Pathology Reports are provided separately, in subsequent sections. Lab Results This section contains the Chemistry/Hematology Results that were resulted 30 days before or 30 daysafter the date of the Encounter. Date/Time Source Result Type Result - Unit Interpretation Reference Range Comment October 07, 2023 10:09 AM [facility] HEMOGLOBIN A1C PANEL Specimen Type: BLOOD Comment: [...] September 25, 2023 08:53 AM Reporting [facility]: [facility] [address] [address] Performing Lab: [facility] [address] [address] HEMOGLOBIN A1C 5.5 4.0-5.6 October 07, 2023 10:09 AM [facility] LIPID PANEL FASTING Specimen Type: SERUM No comment entered. Ordering Provider: JURGEN WIGGINS Report Released Date/Time: September 25, 2023 08:53 AM Reporting Lab: [facility] [address] [address] Performing Lab: [address] [address] CHOLESTEROL 206 mg/dL H TRIGLYCERIDE 71 mg/dL 0-150 LDL calculated 98 mg/dL 0-129 CHOL/HDL 2.2 HDL CHOLESTEROL 94 mg/dL H 40-60 October 07, 2023 10:09 AM [facility] TSH Specimen Type: SERUM No comment entered. Ordering Provider: JURGEN WIGGINS Report Released Date/Time: September 25, 2023 08:53 AM Reporting Lab: [facility] [address] [address] Performing Lab: [facility] [address] [address] TSH 3.85 u[IU]/mL 0.35-5.00 October 07, 2023 10:09 AM [facility] LIVER FUNCTION Specimen Type: SERUM No comment entered. Ordering Provider: JURGEN WIGGINS Report Released Date/Time: September 25, 2023 08:53 AM Reporting Lab: [facility] [address] [address] Performing Lab: [facility] [address] [address] PROTEIN,TOTAL 7.0 g/dL 6.0-8.3 ALBUMIN 4.2 g/dL 3.5-5.0 ALKALINE PHOSPHATASE 95 U/L 40-150 AST 31 U/L 5-34 ALT 20 U/L BILIRUBIN, TOTAL 1.0 mg/dL 0.2-1.2 October 07, 2023 10:09 AM [facility] BASIC METABOLIC PANEL (fasting) Specime n Type: SERUM No comment entered. Ordering Provider: JURGEN WIGGINS Report Released Date/Time: September 25, 2023 08:53 AM Reporting Lab: [facility] [address] [address] Performing Lab: [facility] [address] [address] UREA NITROGEN 26 mg/dL H 7-25 GLUCOSE 88 mg/dL 65-100 SODIUM 140 mmol/L 135-145 POTASSIUM 4.1 mmol/L 3.5-5.0 CHLORIDE 105 mmol/L 100-110 CO2 23 meq/L 20-30 CREATININE, Serum 1.75 mg/dL H 0.50-1.40 eGFR(CKD-EPI 2020) 28 mL/min L >60 October 07, 2023 10:09 AM [facility] CBC AND DIFF (AUTO) Specimen Type: BLOOD No comment entered. Ordering Provider: JURGEN WIGGINS Report Released Date/Time: September 25, 2023 08:53 AM Reporting Lab: [facility] [address] [address] Performing Lab: [facility] [address] [address] WBC 5.84 10*3/uL 4.50-11.00 RBC 4.14 10*6/uL 3.93-5.16 HGB 12.9 g/dL 12-15.2 HCT 38.6 36.6-45.6 MCV 93.2 fL 82-99 MCHC 33.4 g/dL 30.8-35.1 PLT 162 10*3/uL 140-360 RDW-CV 13.5 12.0-16.0 Powell, Abs 0.50 10*3/uL 0.30-1.10 MCH 31.2 pg 26.2-32.6 Neut % 64.2 43.7-75.8 Lymph % 25.2 14.0-42.3 Powell % 8.6 5.1-13.7 Eos % 1.0 0.4-6.8 Baso % 0.7 0.1-2.0 Neut, Abs 3.75 10*3/uL 2.20-7.60 Lymph, Abs 1.47 10*3/uL 1.00-3.20 Eos, Abs 0.06 10*3/uL 0.03-0.44 Baso, Abs 0.04 10*3/uL 0.01-0.13 Immature Gran % 0.3 0.0-0.7 Immature Gran, Abs 0.02 10*3/uL 0.00-0.06 Social History: Smoking Status (Most current) and Tobacco Use (All prior to encounter date) This section includes the most current, and the historical, smoking and tobacco- related health factors from the [place] facility where the Encounter took place. Current Smoking Status This section includes the most current smoking, or tobacco-related health factor, from the [place] facility where the Encounter took place. Date/Time Current Smoking Status Comment Fabian sol Mar 08, 2021 01:51 PM VA-TOBACCO NEVER USED [facility] Tobacco Use History This section includes a history of the smoking, or tobacco-related health factors, that were collected on or before the date of the Encounter. The data comes from the [place] facility where the Encounter took place. Date/Time Smoking Status/Tobacco Use Comment Maykel reeves Mar 10, 2019 03:59 PM VA-TOBACCO NEVER USED [facility] Advance Directives: All historical and current Section Date Range: From patient's date of to the date document was created. This section includes ALL of a patient's completed or amended [place] Advance and Rescinded Directives. The entries below indicate that a directive exists for the patient, but an actual copy is not included with this document. The data comes from all [place] facilities. Date Advance Directives Provider Source October 08, 2019 ADVANCE DIRECTIVE SYLVIE TOVAR Apr 07, 2013 ADVANCE DIRECTIVE KEANU HOLLOWAY [facility] Encounter Notes: All associated encounter notes This section contains the clinical notes associated to the Encounter. Date/Time Encounter Note(s) Provider Source Sep 12, 2023 03:42 PM PHARMACY NOTE: LOCAL TITLE: PHARMACY CUSTOMER CARE MEDICATION RENEWAL STANDARD TITLE: PHARMACY NOTE DATE OF NOTE: SEP 12, 2023@15:42 ENTRY DATE: SEP 12, 2023@15:43:01 AUTHOR: JUSTO CASTILLO COSIGNER: URGENCY: STATUS: COMPLETED Date: Aug Division: [place] Pt referred by Pharmacy Call Center for medication renewal: Non-controlled/maintenan ce medication Medications requested: [id number] LOSARTAN 50MG TAB To be mailed . Please review and renew if appropriate. *This note was generated by [facility] Customer Care. If you have any questions or need assistance, do not contact this author. Please refer all questions to your local, on-site pharmacy departments. /doron/ Mikey CASTILLO CPhT Professor Of Musicology, MS/Pharmacy Customer Care Signed: 09/12/2023 15:43 Receipt Acknowledged By: 09/15/2023 13:01 /doron/ SHAMEKA MOELLERN RN-BC REGISTERED NURSE 10/03/2023 10:38 /es/ JURGEN WIGGINS MD PRIMARY CARE PHYSICIAN JUSTO CASTILLO CN[facility]
[2024-06-23 13:01] LABS: Alanine Aminotransferase 27 U/L (0-31); Albumin Level 4.2 g/dL (3.5-5.0); Alkaline Phosphatase 106 U/L (39-117); Anion Gap 12 (12-20); Aspartate Amino Transferase 42 U/L (5-31); Blood Urea Nitrogen 17 mg/dL (9-16); Calcium 9.5 mg/dL (8.4-10.2); Carbon Dioxide 26 mmol/L (22-29); Chloride 106 mmol/L (96-108); Estimated Glomerular Filt Rate 39; Glucose Random 99 mg/dL (60-115); Potassium 4.1 mmol/L (3.3-5.1); Sodium 140 mmol/L (135-145); Total Protein 7.2 g/dL (6.5-8.0)
[2024-06-23 13:04] LABS: TSH reflex Free T4 2.95 uIU/mL (0.32-4.0)
== END 2024-06-23 10:50 | disposition home or self-care (01) ==
LOC: HO.LAB 10:49
PROVIDERS: PCP Internal Medicine; Visit Provider Registered Nurse
DX: G30.9 Alzheimer's disease, unspecified (principal)
CPT/HCPCS: 36415; 80053; 81001; 81003; 84443; 85025; 87086

== ENCOUNTER 2024-12-02 13:39 | Outpatient (AMB) | payer MEDICARE, SELFPAY ==
--- OUTSIDE RECORDS SUMMARY | 2024-11-05 11:15 | XMS_ITS ---
Author Name [facility] [place] [facility] [place] Address [address] [place] [address] Care Team Providers Care Market Research Specialist Name Role Phone KUSHAL TRIPATHI Primary Care Provider Unavail able Insurance Providers: All historical and current Section [...] [facility] () [facility] ([facility]) May 26, 2014 [facility] [id number] PATIENT [facility] ([facility] MEDICARE ADVANTAGE [facility] ([facility]) May 26, 2018 [facility] [id number] Kamar CLAUDIO PATIENT Selected Encounter This section includes the information on record at [place] for the Encounter. Date/Time Encounter Type Encounter Description Reason Provider Source Nov 05, 2024 03:15 PM [facility] OL DIG ASSMT&MGMT 5-10 CLINICAL PHARMACY ICD-10-CM Z04.89 Encounter for examination and observation for oth reasons DAVID MALHOTRA IHAnnelise Encounter Template Text not used by [facility] Assessments - Encounter Diagnoses This section includes the primary and secondary diagnoses documented for the Encounter. Date/Time Primary/Secondary Diagnosis Diagnosis Name Provider Source Nov 05, 2024 03:35 PM PRIMARY Encounter for examination and observation for oth reasons DAVID MALHOTRA [facility] Plan of Treatment: Future Appointments (+ 6 months) and Future Tests (+/- 45 days) The Plan of Treatment section includes future care activities for the patient from all [place] treatmentfacilities. This section includes future appointments and future orders which are active, pending or scheduled. Future Appointments This section includes appointments that were scheduled to occur 6 months from the date of the Encounter, up to a maximum of 20 appointments. The data comes from all [place] treatment facilities. Appointment Date/Time Appointment Type Appointme nt Facility Name Jan 04, 2025 02:30 PM AMBULATORY - MEDICINE [facility] Lab Results: +/- 30 days of the encounter This section includes the Chemistry and Hematology Lab Results on record with [place] for the patient. Radiology Reports and Pathology Reports are provided separately, in subsequent sections. Lab Results This section contains the Chemistry/Hematology Results that were resulted 30 days before or 30 daysafter the date of the Encounter. Date/Time Source Result Type Result - Unit Interpretation Reference Range Specimen Type Comment Nov 16, 2024 02:29 PM [facility] BASIC METABOLIC PANEL (non-fasting) SERUM Specimen Type: SERUM No comment entered. Ordering Provider: ZANA TRIPATHI Report Released Date/Time: Nov 15, 2024 10:54 PM Reporting Lab: [address] [address] Performing Lab: [address] [address] UREA NITROGEN 24 mg/dL H 10-20 GLUCOSE 144 mg/dL H 65-100 SODIUM 135 mmol/L L 136-145 POTASSIUM 4.1 mmol/L 3.5-5.1 CHLORIDE 104 mmol/L 98-107 CO2 23 meq/L 23-31 CALCIUM 8.7 mg/dL L 8.8-10 CREATININE, Serum 1.46 mg/dL H .57-1.11 eGFR(CKD-EPI 2020) 34 mL/min L >60 Nov 16, 2024 02:29 PM [facility] CBC BLOOD Sp ecimen Type: BLOOD No comment entered. Ordering Provider: KUSHAL TRIPATHI Report Released Date/Time: Nov 15, 2024 10:54 PM Reporting Lab: [facility] [address] [address] Performing Lab: [facility] [address] [facility] [address] WBC 7.41 10*3/uL 4.50-11.00 RBC 3.92 10*6/uL L 3.93-5.16 HGB 12.4 g/dL 12-15.2 HCT 36.9 36.6-45.6 MCV 94.1 fL 82-99 MCHC 33.6 g/dL 30.8-35.1 PLT 172 10*3/uL 140-360 MPV 10.6 fL 9.2-12.4 RDW-CV 13.7 12.0-16.0 MCH 31.6 pg 26.2-32.6 Social History: Smoking Status (Most current) and Tobacco Use (All prior to encounter date) This section includes the most current, and the historical, smoking and tobacco- related health factors from the [place] facility where the Encounter took place. Current Smoking Status This section includes the most current smoking, or tobacco-related health factor, from the [place] facility where the Encounter took place. Date/Time Current Smoking Status Comment Facil ity Mar 08, 2021 01:51 PM VA-TOBACCO NEVER USED [facility] Tobacco Use History This section includes a history of the smoking, or tobacco-related health factors, that were collected on or before the date of the Encounter. The data comes from the [place] facility where the Encounter took place. Date/Time Smoking Status/Tobacco Use Comment F acility Mar 10, 2019 03:59 PM VA-TOBACCO NEVER USED [facility] Advance Directives: All historical and current Section Date Range: From patient's date of to the date document was created. This section includes ALL of a patient's completed or amended [place] Advance and Rescinded Directives. The entries below indicate that a directive exists for the patient, but an actual copy is not included with this document. The data comes from all [place] facilities. Date Advance Directives Provider Source October 08, 2019 ADVANCE DIRECTIVE SYLVIE TOVAR Apr 07, 2013 ADVANCE DIRECTIVE [facility] HOLLOW[facility] Encounter Notes: All associated encounter notes This section contains the clinical notes associated to the Encounter. Date/Time Encounter Note(s) Provider Source Nov 05, 2024 03:15 PM PHARMACY MEDICATION MGT NOTE: LOCAL TITLE: PHARMACY ANTICOAGULATION NOTE STANDARD TITLE: PHARMACY MEDICATION MGT NOTE DATE OF NOTE: NOV 05, 2024@15:15 ENTRY DATE: NOV 05, 2024@15:15:43 AUTHOR: JOHN CARRINGTON EXP COSIGNER: URGENCY: STATUS: COMPLETED PHARMACY ANTICOAGULATION NOTE Has ADDENDA ANTICOAGULATION DOAC MONITORING NOTE SUBJECTIVE: Patient identified through the DOAC population Management Tool based on the following criteria: [ ] Dosing Issue [ ] Critical Drug Interaction [ ] Cancer Treatment [ ] Active NSAID [ X ] Labs Overdue [ ] Prosthetic Valve Replacement [ ] Notable Lab Value [ ] Overdue for Refill [ ] Other: Comments: CBC and Serum creatinine recommended every 12mths for this patient on DOAC therapy OBJECTIVE: Indication for anticoagulation: [ X ] Atrial fibrilation [ ] Atrial flutter [ ] VTE (DVT or PE) [ ] Post-op DVT prophylaxis [ ] Other: Most recent lab values include the following: HGB: HGB Collection DT Specimen Test Name Result Units Ref Range 10/07/2023 10:09 BLOOD HGB 12.9 g/dL 12 - 15.2 PLT: WBC Collection DT Specimen Test Name Result Units Ref Range 10/07/2023 10:09 BLOOD WBC 5.84 K/cmm 4.50 - 11.00 Liver Function Tests No data available for: AST ALT ALKALINE PHOSPHATASE ALBUMIN BILIRUBIN, TOTAL LDH PROTEIN,TOTAL HEIGHT: 64 in [162.6 cm] (04/07/2024 14:38) WEIGHT: 122 lb [55.34 kg] (04/07/2024 14:38) BMI: BMI: 21.0 CREATININE-EGFR - NONE FOUND CRCL IBW: CrCl(est): 19.2 mL/min (Creat:1.75 10/07/23) CRCL ACT: No Creat CRCL ADJ: 19.2 mL/min (10/07/23) ASSESSMENT: overdue labs Action required? [ ] Yes [ X ] No Comments: had labs that were drawn at [facility] and results found in [facility] Portal [place] had labs that were performed by a lab outside the [place]. These results were verified by reviewing a copy of the outside laboratory report. Patient reports outside Hgb results: Date: September 23, 2024 Results: 13.1 Location: Outside Healthcare Provider Patient reports outside HCT results: Date: September 23, 2024 Results: 39.4 Location: Outside Healthcare Provider Patient reports outside PLT results: Date: September 23, 2024 Results: 152 Location: Outside Healthcare Provider Patient reports outside SCR results: Date: September 23, 2024 Results: 1.52 Location: Outside Healthcare Provider Patient reports outside BUN results: Date: September 23, 2024 Results: 28 Location: Outside Healthcare Provider PLAN: [ X ] No action required, dismiss flag [ ] Will intervene: [ ] Patient education via phone/letter [ ] Schedule phone/[id number] follow up [ ] Lab ordered [ ] Discontinue interacting medication [ ] Discontinue DOAC [ ] Change to alternative DOAC [ ] Change DOAC dose [ ] Notify PCP [ ] Consult cardiology/hematology [ ] Other: Time spent: 10 min /doron/ JOHN CARRINGTON CPHT Clinical Blow Mold Operator Signed: 11/05/2024 15:17 Receipt Acknowledged By: 11/05/2024 15:35 /doron/ Damari Malhotra PharmD Clinical Web Architect 11/05/2024 ADDENDUM STATUS: COMPLETED Above case reviewed as entered by [facility] Senior Lead Project Manager. Agree with current assessment and plan of care for this patient's anticoagulation management as noted. /doron/ Dede JuniorD Clinical Web Architect Signed: 11/05/2024 15:35 JOHN CARRINGTONRL [facility]
--- OUTSIDE RECORDS SUMMARY | 2024-12-02 13:42 | XMS_ITS | Encounter Summary ---
Author Organization [facility] Address [address] [place] [address] Phone Care Team Providers Care Ground Intelligence Officer Name Role Phone Yan Batista Primary Care Provider [phone] Encounter Details Date Type Department Care Team (Late st Contact Info) Description 10/08/2023 Documentation Only [facility] [address] [place] [phone] [place], [place] [address] [place] [address] Social History Tobacco Use Types [...] Care Team (Late st Contact Info) Description 12/15/2024 4:40 PM EDT Office Visit [facility] [address] [place] [address] Mikel Del Rio MD [address] [place] [phone] documented as of this encounter Visit Diagnoses Not on filedocumented in this encounter Care Teams Ground Intelligence Officer Relationship Specialty Start Date End Date Yan Batista [address] [place] [address] PCP - General Internal Medicine 05/21/23 documented as of this encounter
--- OUTSIDE RECORDS SUMMARY | 2024-12-02 13:42 | XMS_ITS | Clinical Summary ---
Author Organization [place] [address] [address] [facility] Building Address [address] [place] [phone] Phone Care Team Providers Care Bottle Capper Name Role Phone Annette Workman MD Primary Care Provider [phone] Allergies Active Allergy Reactions Criticality Noted Date Comments Acetaminophen 12/07/2020 Codeine 12/07/2020 Codeine Phosphate Nausea And Vomiting 03/31/2012 Cod-Na Metabisulfite Diphenhydramine Hcl Dizziness 03/31/2012 & Alc-Diphenhydramine- Fd&C Red #40 Oxycodone Hcl 12/07/2020 Oxycodone-Acetaminophen Nausea And Vomiting 03/31/2012 Sertraline Nausea And Vomiting 06/25/2017 Sulfa (Sulfonamide Antibiotics) 02/01/2016 Sulfacetamide 12/07/2020 Tramadol Headache 12/27/2015 Medications metoprolol succinate (TOPROL-XL) 25 mg 24 hr tablet Take 1 Tablet by mouth daily. Active apixaban (ELIQUIS) 5 mg tablet Take 2.5 mg by mouth 2 times daily. 03/20/2023 Active atorvastatin (LIPITOR) 20 mg tablet Take 20 mg by mouth daily. 08/02/2015 Active multivit-min/eryn marcia fumarate (MULTI VITAMIN ORAL) Take 1 Tab by mouth daily. 02/05/2017 Active Active Problems Problem Noted Date Diagnosed Date Stage 3 chronic kidney disease (CMS/HCC V24, CMS /HCC V28) 04/11/2023 Primary hypertension 02/22/2022 Overview (02/25/2024): Last Assessment & Plan: Reasonably mcet-tqxaanhtip-A think a range of less than 150/90 [...] In eyes and on face Atrial fibrillation (CMS/HCC V24, CMS/HCC V28) 0 11/09/2018 Overview (02/25/2024): -I met her in hospital consultation when she was hospitalized at [facility] in October 2018 for symptoms of refractory [...] -Most recent echocardiogram from 08/15/2020 during her hospitalization (detailed below) showed normal left ventricular size, wall thickness, and [...] July 2020 showed no acute intracranial pathology. There is moderate parenchymal volume loss and probable microangiopathic ischemic changes. There were also multiple punctate gradient foci similar to previous exam which can be seen in the setting of amyloid angiopathy and/or remote petechial microhemorrhages -CT angiography showed no significant carotid stenoses, patent vertebral arteries, no significant stenoses of the intracranial carotid circulation, vertebral arteries, vertebral basilar junction, basilar, and posterior cerebral arteries. There was also no evidence of aneurysm Last [...] Encounters Date Type Department Care Team Description 10/25/2024 1:30 PM EDT Office Visit Orthopedic Surgery [address] [phone] Mario Mcdaniel MD Closed fracture of right hand with routine healing, subsequent encounter (Primary Dx); Other closed fracture of distal end of right ulna with routine healing, subsequent encounter 10/14/2024 Telephone [facility] [address] [place] [phone] Annette Workman MD vna 10/11/2024 3:00 PM EDT Consult Orthopedic Surgery - [place] [address] [phone] Mario Mcdaniel MD Other closed fracture of distal end of right ulna, initial encounter (Primary Dx); Closed fracture of right hand with routine healing, subsequent encounter 10/04/2024 Telephone [facility] [address] [place] [phone] Annette Workman MD Referral 09/27/2024 Telephone [facility] [address] [place] [phone] Annette Workman MD Forms/questionnaires (PFML) 09/14/2024 Telephone Internal Medicine - [address] [phone] Annette Workman MD Forms/questionnaires ([employer] [facility] Medical Information) from Last 3 Months Immunizations Name Administration [...] DX :CAD (coronary artery disease); COMMENT: Comments: 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 documents Aortic atherosclerosis per [place] 03/28/05 Atrial fibrillation (CMS/HCC V24, CMS/HCC V28) DX:Atrial fibrillation ([facility]) Major depression, single episode 02/12/2018 DX:Major depression, [...] drink = 0.6 oz pur e alcohol) Comments No Sex and Gender Information Value Date Recorded Sex Assigned at Not on file Legal Sex Female 5:20 PM EST Gender Identity Not on file Sexual Orientation Not on file Obstetrics History Para Term AB IAB SAB Ectopic Multiple Livin g Live Births 2 Last Filed Vital Signs Vital Sign Reading Time Taken Comments Blood Pressure 130/78 04/02/2024 2:29 PM EST Pulse 78 04/02/2024 2:29 PM EST Temperature - - Respiratory Rate - - Oxygen Saturation - - Inhaled Oxygen Concentration - - Weight 56.7 kg (125 lb) 10/11/2024 3:04 PM EDT Height 160 cm (5' 2.99 ) 10/11/2024 3:04 PM EDT Body Mass Index 22.15 10/11/2024 3:04 PM EDT Plan of Treatment Health Maintenance Due Date Last Done Comments Pneumococcal Vaccine: 50+ Years (2 of 2 - PCV) 03/11/2012 03/11/2011, 04/25/2002 Depression Screening 04/27/2022 Medicare Annual Wellness Visit 04/27/2022 DTaP,Tdap,and Td Vaccines (3 - Td or Tdap) 06/23/2023 06/23/2013, 02/15/2003 COVID-19 Vaccine ( season) 2024 02/03/2024, 03/26/2023, 03/19/2023, Additional history exists Influenza Vaccine (#1) 2025 , 02/03/2024, 03/26/2023, Additional history exists Falls Risk Assessment 04/02/2025 04/02/2024 Social Influencers of Health Screening 04/02/2025 04/02/2024 Hypertension/CHF/CAD Annual BMP Blood Test 04/08/2025 04/08/2024, 04/10/2023 Cholesterol Screening (Lipid Panel) 04/08/2029 04/08/2024, 06/01/2020 Osteoporosis Screening (Bone Density Screening) 03/20/2033 03/20/2023, 02/07/2021, 12/30/2018 Zoster Vaccines Completed 08/23/2020, 02/18/2020 RSV Immunization Adult Patients Completed 08/12/2024 HIB Vaccines Aged Out No longer eligi [...] patient's age to complete this topic Meningococcal B Vaccine Aged Out No l onger eligible based on patient's age to complete this topic RSV Immunization Patients Under 20 months Aged Out No longer eligible based on patient's age to complete this topic Varicella Vaccines Aged Out No longer eligible based on patient's age to complete this topic Procedures Procedure Name Priority Date/Time Associated Diagnosis Comments XR HAND 3+ VIEWS RIGHT Routine 10/25/2024 1:29 PM EDT Closed fracture of right hand with routine healing, subsequent encounter XR HAND 3+ VIEWS RIGHT Routine 10/11/2024 3:07 PM EDT Closed fracture of right hand with routine healing, subsequent encounter COMPREHENSIVE METABOLIC PANEL Routine 04/08/2024 11:35 AM EST Primary hypertension LIPID PANEL WITH REFLEX TO DIRECT LDL Routine 04/08/2024 11:35 AM EST Hypercholesterolemia SHRUTHI DEXA AXIAL SKELETON Routine 03/20/2023 2:12 PM EDT Encounter for screening for osteoporosis from Last 3 Months or Most Recently Relevant to Health Maintenance Results * XR Hand 3+ Views Right (10/25/2024 1:29 PM EDT) Only the most recent of2 resultswithin the time period is included. Anatomical Region Laterality Modality Upper Extremities, Hand Right Computed Radiography Narrative 10/25/2024 1:36 PM EDT Three-view x-ray of the right wrist shows diffuse arthritis and osteopenia, most severe at the thumb CMC joint, previously visualized lucency at the ulnar neck again visualized and is consistent with a likely oblique distal ulnar fracture in the setting of osteopenia. This appears to be a nondisplaced fracture. Impression: Nondisplaced distal ulna fracture. Mario Mcdaniel MD IMG XR PROCEDURES Final Result * Lipid panel with reflex to direct LDL (04/08/2024 11:35 AM EST) Cholesterol 191 0 - 200 mg/dL LAB CHEMISTRY METHOD 04/08/2024 3:43 PM EST [facility] Triglycerides 90 0 - 150 mg/dL LAB CHEMISTRY METHOD 04/08/2024 3:43 PM [facility] HDL 95 >=40 mg/dL LAB CHEMISTRY METHOD 04/08/2024 3:43 PM EST [facility] LDL Calculated 78 0 - 100 mg/dL LAB CHEMISTRY METHOD 04/08/2024 3:43 PM EST [facility] VLDL Cholesterol Gibson 18 mg/dL LAB CHEMISTRY METHOD 04/08/2024 3:43 PM EST [facility] Non HDL Chol. (LDL+VLDL) 96 <145 mg/dL LAB CHEMISTRY METHOD 04/08/2024 3:43 PM EST [facility] Chol/HDL Ratio 2.0 0.0 - 4.4 LAB CHEMISTRY METHOD 04/08/2024 3:43 PM EST [facility] Blood Venous blood specimen / Unknown Venipuncture / Unknown 04/08/2024 11:35 AM EST 04/08/2024 11:35 AM EST Annette Workman MD LAB BLOOD ORDERABLES Final Resu lt [facility] [address] [place] [address], [place] [phone] * (ABNORMAL) Comprehensive metabolic panel (04/08/2024 11:35 AM EST) Sodium 140 133 - 145 mmol/L LAB CHEMISTRY METHOD 04/08/2024 3:05 PM [facility] Potassium 3.7 3.5 - 5.5 mmol/L LAB CHEMISTRY METHOD 04/08/2024 3:05 PM [facility] Chloride 106 96 - 110 mmol/L LAB CHEMISTRY METHOD 04/08/2024 3:05 PM [facility] CO2 27 21 - 32 mmol/L LAB CHEMISTRY METHOD 04/08/2024 3:05 PM [facility] Anion Gap 7 3 - 11 LAB CHEMISTRY METHOD 04/08/2024 3:05 PM [facility] Glucose 116(H) 70 - 100 mg/dL LAB CHEMISTRY METHOD 04/08/2024 3:05 PM [facility] BUN 24 5 - 25 mg/dL LAB CHEMISTRY METHOD 04/08/2024 3:05 PM [facility] Creatinine 1.66(H) 0.50 - 1.10 mg/dL LAB CHEMISTRY METHOD 04/08/2024 3:05 PM [facility] eGFR 30(L) >=60 mL/min/1. 73m2 LAB CHEMISTRY METHOD 04/08/2024 3:05 PM [facility] Comment:Calculation based on the Chronic Kidney Disease Epidemiology Collaboration (CKD-EPI) equation refit without adjustment for race. BUN/Creatinine Ratio 14.5 LAB CHEMISTRY METHOD 04/08/2024 3:05 PM [facility] Calcium 9.3 8.5 - 10.5 mg/dL LAB CHEMISTRY METHOD 04/08/2024 3:05 PM [facility] AST (SGOT) 27 10 - 42 unit/L LAB CHEMISTRY METHOD 04/08/2024 3:05 PM [facility] ALT (SGPT) 32 10 - 60 unit/L LAB CHEMISTRY METHOD 04/08/2024 3:05 PM EST [facility] Alkaline Phosphatase 138(H) 42 - 121 unit/L LAB CHEMISTRY METHOD 04/08/2024 3:05 PM EST [facility] Total Protein 6.8 6.0 - 8.0 g/dL LAB CHEMISTRY METHOD 04/08/2024 3:05 PM EST [facility] Albumin 4.1 3.2 - 5.0 g/dL LAB CHEMISTRY METHOD 04/08/2024 3:05 PM EST [facility] Total Bilirubin 0.8 0.0 - 1.4 mg/dL LAB CHEMISTRY METHOD 04/08/2024 3:05 PM EST [facility] Blood Venous blood specimen / Unknown Venipuncture / Unknown 04/08/2024 11:35 AM EST 04/08/2024 11:35 AM EST Annette Workman MD LAB BLOOD ORDERABLES Final Resu lt [facility] [address] [place] [address], * SHRUTHI DEXA AXIAL SKELETON (03/20/2023 2:12 PM EDT) Anatomical Region Laterality Modality Mammography 03/20/2023 11:1 6 AM EDT Narrative 03/20/2023 2:12 PM EDT [facility] Diagnostic Imaging Department [address] [place] [address] Patient: JOSE CLAUDIO D.O.B./Age/Sex: 1935 - 87 - F Unit#: [id number] Location/Status: SPDIMAM/REG CLI Mnemonic/Ordering Site: MAMDEXAAX/SPMAM Ordering Physician: ANNETTE WORKMAN MD [facility] Dexa Axial Skeleton - 03/20/23 - 1150 Report Status:Signed History: Low estrogen state due to menopause. Comparison: 02/07/21 Findings: Bone densitometry is performed utilizing dual energy x-ray absorptiometry (DXA) in the [employer] unit. The lumbar spine and proximal femora are evaluated in the AP projection. The FRAX questionaire was completed. The results indicate osteoporosis, with a right femoral neck T-score of -2.5. The Z score is 0.2, indicating bone mineral density within the range of normal for age. There has been no statistically significant change. The detailed DEXA report will be mailed to the referring physician's office. DualFemur FRAX: 10-year Probability of Fracture: Major Osteoporotic 16.0 percent Hip 6.1 percent. IMPRESSION: Osteoporosis. [id number] Dictating Physician: MONE AMIN MD Electronically Signed by: MONE AMIN MD Dic Date/Time: 03/20/23 141 Sign date/Time: 03/20/23 141 Procedure Note Mone Amin MD - 07/01/2023 [facility] Diagnostic Imaging Department [address] [place] [address] Patient: NOLVIA CLAUDIOJOHN LittleO.B./Age/Sex: 1935 - 87 - F Unit#: [id number] Location/Status: SPDIMAM/REG CLI Mnemonic/Ordering Site: MAMDEXAAX/SPMAM Ordering Physician: ANNETTE WORKMAN MD Shruthi Dexa Axial Skeleton - 03/20/23 - 1150 Report Status:Signed History: Low estrogen state due to menopause. Comparison: 02/07/21 Findings: Bone densitometry is performed utilizing dual energy x-ray absorptiometry(DXA) in the [employer] unit. The lumbar spine and proximal femora [...] 16.0 percent Hip 6.1 percent. IMPRESSION: Osteoporosis. 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 Power of Trademark Attorney 09/22/2024 4:05 PM Healt hcare Power of Trademark Attorney Health Care Decision (hx) 01/12/2020 ADVANCE DIRECTIVE Health Care Decision (hx) 01/12/2020 ADVANCE DIRECTIVE Health Care Decision (hx) 01/12/2020 ADVANCE DIRECTIVE Health Care Decision (hx) 01/12/2020 ADVANCE DIRECTIVE Health Care Decision (hx) 01/12/2020 ADVANCE DIRECTIVE Health Care Decision (hx) 01/12/2020 ADVANCE DIRECTIVE Health Care Decision (hx) 01/12/2020 ADVANCE DIRECTIVE Health Care Decision (hx) 01/12/2020 ADVANCE DIRECTIVE Health Care Decision (hx) 01/12/2020 ADVANCE DIRECTIVE Health Care Decision (hx) 01/12/2020 ADVANCE DIRECTIVE Health Care Decision (hx) 01/12/2020 ADVANCE DIRECTIVE Health Care Decision (hx) 01/12/2020 ADVANCE DIRECTIVE Health Care Decision (hx) 01/12/2020 ADVANCE DIRECTIVE Health Care Decision (hx) 01/12/2020 ADVANCE DIRECTIVE Health Care Decision (hx) 01/12/2020 ADVANCE DIRECTIVE Care Teams Bottle Capper Relationship Specialty Start Date End Date Annette Workman MD [address] [place] [address] [place] [id number] PCP - General Internal Medicine 04/08/24
--- OUTSIDE RECORDS SUMMARY | 2024-12-02 13:42 | XMS_ITS | Clinical Summary ---
Author Organization [facility] Address [address] [place] [address] Care Team Providers Care Feed Adviser Name Role Phone Mar Espinosa MD Primary [...] - PCV) 03/11/2012 03/11/2011 Influenza Vaccine (#1) 2025 Hepatitis B Vaccines Aged Out No long er eligible based on patient's age to complete this topic RSV Ped < 20 months Aged Out No longe r eligible based on patient's age to complete this topic Care Teams Feed Adviser Relationship Specialty Start Date End Date Mar Espinosa MD 71 [address] [id number] PCP - General Internal Medicine 12/22/19
--- NOTE | 2024-12-02 13:44 | MHC.OFFVIS ---
Intake Visit Reasons: follow up Accompanied by: Grand Child Allergies No Known Allergies Allergy (Verified 12/02/24 13:53) Medication List - Last Reconciled 12/02/24 by Mansi Negron CNP apixaban (Eliquis) 5 mg PO BID atorvastatin (Lipitor) 20 mg PO DAILY metoprolol succinate ER 25 mg PO DAILY [id number]-lut-eitan 250 mg (90 mg-160 mg) (Ocuvite Adult 50 Plus) 1 cap PO DAILY paroxetine HCl 10 mg PO DAILY HPI Comments Details: She was here with her granddaughter. Son brought her to [place] for 6 weeks early this year and fell down escalator at [facility] when she got home, fractured wrist. She has been in memory care unit for about 2 months, but planning to return home with assistance. Memory was stable overall. She felt her memory was worse in the morning, but would get better as the day went on. She has trouble with word recall and finishing sentences. Sleep was okay. Her mood was much better with paroxetine and she was not crying anymore. More forgetful. One time, she left water running. Another time, she did not shut the door when she left the house. She had been driving locally. Was going for walks with some women in the neighborhood, but less often now with colder weather. Granddaughter visits weekly and helps with bills and setting up pill box. There is no other family in the area. Her younger sister calls nightly. She had trouble recognizing her daughter that she had not seen in 8 years who was visiting from [place] at the [facility] in 09/2023. Problem with cognitive abilities since 2020 which became much more prominent after she developed Covid infection on 05/17/22. There was a dramatic change and she feels she is in the brain fog and has a lot of trouble with numbers and some short-term memory problems. At least 2 of her sisters had dementia in the later years. 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 She has no gait problems and no problems with her urinary control. [facility] Medical History (Updated 12/02/24 @ 13:48 by Mansi Negron CNP) HLD (hyperlipidemia) Alzheimer disease Alzheimer dementia Hypertension Atrial fibrillation MCI (mild cognitive impairment) Review of Systems Const Denies chills, Denies daytime sleepiness, Reports difficulty sleeping, Denies fatigue, Denies fever(s), Denies frequent falls, Denies headache(s), Denies increased appetite, Denies poor appetite, Denies snoring, Denies weakness, Denies weight gain and Denies weight loss Eyes Denies loss of vision ENT Denies vertigo, Denies dizziness, Denies headache(s) and Denies neck pain Card Denies chest pain at rest, Denies chest pain with activity, Denies syncope, Denies leg edema, Denies palpitations, Denies dyspnea and Denies dyspnea on exertion Resp Denies cough, Denies dyspnea, Denies dyspnea on exertion and Denies snoring GI Denies abdominal pain, Denies constipation, Denies heartburn, Denies diarrhea and Denies nausea Denies urinary frequency, Denies urinary incontinence and Denies urinary urgency Musc Denies abnormal gait, Denies back pain, Reports myalgias, Reports arthralgias, Denies neck pain, Denies numbness, Denies stiffness and Denies tingling Neuro Denies abnormal gait, Denies vertigo, Denies dizziness, Denies syncope, Denies frequent falls, Denies headache(s), Denies lack of coordination, Denies loss of vision, Reports memory loss, Denies numbness, Denies Other visual disturbances, Denies restless legs, Denies seizure-like activity, Denies tingling, Denies paresthesias, Denies tremor(s) and Denies weakness Psych Reports anxiety, Reports depression, Reports memory loss, Denies visual hallucinations and Denies hallucinations Endo Denies fatigue and Denies palpitations Physical Exam Const Other: General Appearance:? normal, in no acute distress. Heart:? S1, S2 normal, no murmurs. Lungs:? clear anteriorly and posteriorly. Musculoskeletal:? normal. Extremities:? no edema. Psych:? alert, as below Neuro Other: Abnormal Neurological Findings:?MMSE 23/30. Some word finding difficulties. Mental Status: alert, as below Cranial Nerves: Pupils are equal, round, and reactive to light. External ocular muscles are intact. Visual marsh are full, no ptosis. Face is symmetrical, no facial weakness or droop. Facial sensations are normal. Tongue protrudes in midline. Palate elevates symmetrically. Shoulder shrugging is normal Motor Examination: Normal muscle tone, bulk and strength. No atrophy or fasciculations. No drift of the extended upper extremities. DTR 2+. Plantars are flexor. Straight Leg Raisin degrees. Sensory Exam: Normal light touch, temperature, pinprick, vibration, and joint-position sensations. Rhomberg sign is absent. Coordination: No ataxia. No titubation. Qqbfmf-[id number]-velo, tmmi-sbev-tfwi test, and rapid alternating movements were normal. Gait Exam: Within normal limits. Cerebellar Signs: [id number] and zoul-cj-wofk is normal. No dysdiadochokinesia. Extrapyramidal System: No tremor, rigidity with normal facial expressions. No bradykinesia. No bradyphrenia. Normal arm swing and posture. No propulsion or retropulsion. Speech: Normal. No dysphasia or dysarthria. MMSE Level of Consciousness: Alert. Orientation: Knows correct year, month, date, day and season. Knows correct city, county and state. Knows correct location. Does not know floor. Registration: Able to register 3 objects. Attention: Unable to do serial 7's Recall: Able to recall 2 out of 3 objects. Language: Normal spontaneous speech, fluency, repetition, naming, comprehension, reading, and writing. Total Score: 23/30. Assessment & Plan Assessment & Plan (1) Alzheimer disease: Code(s): G30.9 - Alzheimer's disease, unspecified; F02.80 - Dementia in other diseases classified elsewhere, unspecified severity, without behavioral disturbance, psychotic disturbance, mood disturbance, and anxiety Category: Medical Plan: Continue paroxetine 10mg 1 tablet daily. Patient Instructions: Meds tried: donepezil, memantine, sertraline Coding Level of Care Code Est Pt Level 3 (53871) Diagnoses Alzheimer disease G30.9; F02.80
== END 2024-12-02 14:13 | disposition home or self-care (01) ==
LOC: HO.HSM 13:39
PROVIDERS: PCP Internal Medicine; Referring Provider Internal Medicine; Visit Provider Registered Nurse
DX: G30.9 Alzheimer's disease, unspecified (principal); F02.80 Dementia in other diseases classified elsewhere, unspecified severity, without behavioral disturbance, psychotic disturbance, mood disturbance, and anxiety
CPT/HCPCS: 99213

== ENCOUNTER → 2024-12-02 13:39 | Outpatient (BNVA) | payer MEDICARE, SELFPAY | PROVIDERS: PCP Internal Medicine; Referring Provider Internal Medicine; Visit Provider Registered Nurse | DX: G30.9 Alzheimer's disease, unspecified (principal); F02.80 Dementia in other diseases classified elsewhere, unspecified severity, without behavioral disturbance, psychotic disturbance, mood disturbance, and anxiety; Z79.899 Other long term (current) drug therapy | CPT/HCPCS: 99212 ==